=== PATIENT | female | born 1955 | race Caucasian/White ===

== ENCOUNTER → 2018-05-13 14:42 | Outpatient (CLI) | payer MEDICAID, SELFPAY ==
[2018-05-13 17:57] LABS: Absolute Lymphocyte Count 1.61 X10^3/ul (0.83-4.51); Absolute Neutrophil Count 2.7 X10^3/uL (2.0-7.7); Basophil# 0.02 X10^3/uL; Basophil% 0.4 % (0-1); Eosinophil# 0.02 X10^3/uL; Eosinophils% 0.4 % (0-5); Hematocrit 40.6 % (37-47); Hemoglobin 14.2 g/dl (12.0-15.0); Lymphocyte # 1.61 X10^3/ul (4.0); Lymphocyte % 33.7 % (19-41); Mean Corpuscular Hgb 31.8 pg (27.0-32.0); Mean Platelet Vol. 10.6 fl (6.2-12.0); Monocyte# 0.45 X10^3/uL; Monocyte% 9.4 % (0-10); Neutrophil # 2.67 X10^3/uL (2.7-7.7); Neutrophil % 55.9 % (47-70); Platelet Count 130 K/mm3 (150-450); RBC Distribution Width CV 12.8 % (11.6-14.6); RBC Distribution Width SD 41.8 fl (35.1-43.9); Red Blood Count 4.46 M/mm3 (4.2-5.4); White Blood Count 4.8 K/mm3 (4.4-11.0)
[2018-05-13 18:03] LABS: Vitamin D,25 Hydroxy 44.4 ng/mL (29.95-100.01)
[2018-05-13 18:06] LABS: ALB/GLOB Ratio 1.2 RATIO (0.9-2.4); AST(SGOT) 26 U/L (15-37); Alanine Aminotransfer ALT/SGPT 32 U/L (13-56); Albumin, Serum 4.2 g/dL (3.2-5.0); Alkaline Phosphatase 56 U/L (45-117); Anion Gap 10 (5-15); BUN 13 mg/dL (7-18); BUN/Creat Ratio 18.8 RATIO (10-20); Calcium,Total 9.1 mg/dL (8.5-10.1); Chloride 102 mmol/L (98-107); Cholesterol 205 mg/dL (200); Creatinine, Serum 0.69 mg/dL (0.55-1.02); EST Glomerular Filtration Rate 91 mL/min (>60); Est Glom Filt Rate - Afr Amer 110 mL/min (>60); Globulin 3.5 g/dL (2.2-4.2); Glucose 68 mg/dL (74-106); High Density Lipoprotein 61 mg/dL; Potassium 3.5 mmol/L (3.5-5.1); Protein, Total 7.7 g/dL (6.4-8.2); Sodium Level 138 mmol/L (136-145); Thyroid Stim Hormone (TSH) 1.13 uIU/mL (0.358-3.74); Triglycerides 63 mg/dL; Very Low Density Lipoprotein 13 mg/dL (5-40)
[2018-05-13 18:20] LABS: POSITIVE COUNT NO; POSITIVE DIFFERENTIAL NO; POSITIVE MORPHOLOGY NO
== END ==
PROVIDERS: Family Provider Family Medicine; PCP Family Medicine; Visit Provider Family Medicine
DX: Z00.01 Encounter for general adult medical examination with abnormal findings (principal); R53.83 Other fatigue
CPT/HCPCS: 36415; 80053; 80061; 82306; 84443; 85025

== ENCOUNTER → 2018-05-21 10:29 | Outpatient (CLI) | payer OTHER, SELFPAY ==
--- NOTE | 2018-05-21 10:38 | STE_ITS ---
Reason For Study: DYSPNEA Stress Results Protocol: Adrian Protocol Maximum Predicted HR: 157 bpm Target HR: 133 bpm% Max imum Predicted HR: 96 % DurationHeart Rate Stage (mm:ss) (bpm) BP BASELINE 76 142/78 STAGE 1 3:00 11 2 152/74 STAGE 2 3:00 13 1 180/80 STAGD 3 3:00 15 0 180/84 RECOVERY 95 140/82 Stress Duration: 9:00 mm:ss Maximum Stress HR: 150 bpmM ETS: 10 Baseline Echocardiogram Findings Stress Echo Wall motion Data Resting WMIntermediate WMStress WM Resting Wall Motion Wall Motion Stress All segments Normal. All segments Hyperkinetic. Ejection Fraction 60 %. Ejection Fraction 75 %. Stress Results Heart rate response: appropriate Blood pressure response: resting hypertension; appropriate response Arrhythmias: none Functional capacity: good Stopped secondary to: dyspnea. EKG Data Baseline ECG: NSR. Exercise ECG: no obvious ECG changes. Symptoms with Stress No c/o chest pain during exercise / recovery. Interpretation Summary Negative (adequate) Stress Echocardiogram Ordering Physician: Low Pabon Referring Physician: Low Pabon Performed By: Tiana Levi, JOSE LUIS, RVT
== END ==
PROVIDERS: Family Provider Family Medicine; PCP Family Medicine; Visit Provider Family Medicine
DX: R53.83 Other fatigue (principal); R06.00 Dyspnea, unspecified
CPT/HCPCS: 93017; 93350

== ENCOUNTER → 2018-05-29 14:39 | Outpatient (CLI) | payer OTHER, SELFPAY ==
--- NOTE | 2018-05-29 14:49 | BI_ITS ---
MAMMOGRAPHY - BILATERAL SCREENING 3-D FIDEL SYNTHESIS REASON FOR EXAM: Female, 63 years old. Bilateral Screening 3-D tomosynthesis PERTINENT HISTORY: Asymptomatic except lost weight since last exam. Right excisional biopsy 1999, negative. Family breast carcinoma, maternal great aunt age 70. TECHNIQUE: 2-D mammograms and 3-D Fidel synthesis of the breast (s) were performed. CAD was performed. COMPARISON: 10/03/2016, 09/22/2015. FINDINGS: The breast composition is heterogeneously dense that can obscure small breast masses. Scattered benign calcifications are seen. No new architectural distortion, asymmetric density, abnormal microcalcification cluster, dominant mass, adenopathy, skin thickening or nipple retraction identified. There has been no significant change since the prior study. BI/SCREENING MAMM (CAD), BILAT IMPRESSION: No mammographic signs of malignancy. Routine yearly mammograms recommended. ASSESSMENT CATEGORY: BIRADS Category 2: Benign. A letter regarding these results will be sent to the patient by the facility within 30 days. FOLLOW UP RECOMMENDATION: Yearly follow up mammogram recommended. (A) Negative results should not deter biopsy as a palpable lesion should be followed on clinical grounds and biopsy performed if clinically persistent for 3 months or increasing size. Approximately 10% of breast cancers are not detected by mammography. A normal mammogram should not delay biopsy of a clinically suspicious abnormality. Electronically Signed: Dwayne Padilla, at 13:39 EDT Tel , Service support ,
== END ==
PROVIDERS: Family Provider Family Medicine; PCP Family Medicine; Visit Provider Family Medicine
DX: Z12.31 Encounter for screening mammogram for malignant neoplasm of breast (principal)
CPT/HCPCS: 77063; 77067

== ENCOUNTER → 2019-06-20 13:52 | Outpatient (CLI) | payer OTHER, SELFPAY ==
[2019-06-20 16:14] LABS: Absolute Lymphocyte Count 1.44 X10^3/uL (0.83-4.51); Absolute Neutrophil Count 3.3 X10^3/uL (2.0-7.7); Basophil# 0.02 X10^3/uL; Basophil% 0.4 % (0-1); Eosinophil# 0.02 X10^3/uL; Eosinophils% 0.4 % (0-5); Hematocrit 40.4 % (37-47); Hemoglobin 13.6 g/dL (12.0-15.0); Lymphocyte # 1.44 X10^3/ul (4.0); Lymphocyte % 28.2 % (19-41); Mean Corp Hgb Conc 33.7 g/dL (32-36); Mean Corpuscular Hgb 31.8 pg (27.0-32.0); Mean Corpuscular Volume 94.4 fL (81-99); Mean Platelet Vol. 10.4 fl (6.2-12.0); Monocyte# 0.37 X10^3/uL; Monocyte% 7.2 % (0-10); NRBC Flagged by Analyzer 0 % (0-5); Neutrophil # 3.26 X10^3/uL (2.7-7.7); Neutrophil % 63.8 % (47-70); Platelet Count 132 K/mm3 (150-450); RBC Distribution Width CV 12.5 % (11.6-14.6); RBC Distribution Width SD 43.6 fl (35.1-43.9); Red Blood Count 4.28 M/mm3 (4.2-5.4); White Blood Count 5.1 K/mm3 (4.4-11.0)
[2019-06-20 16:35] LABS: Vitamin D,25 Hydroxy 32.5 ng/mL (29.95-100.01)
[2019-06-20 16:39] LABS: ALB/GLOB Ratio 1.2 RATIO (0.9-2.4); AST(SGOT) 16 U/L (15-37); Alanine Aminotransfer ALT/SGPT 27 U/L (13-56); Alkaline Phosphatase 71 U/L (45-117); Anion Gap 7 (5-15); BUN 23 mg/dL (7-18); BUN/Creat Ratio 30.8 RATIO (10-20); Calcium,Total 8.9 mg/dL (8.5-10.1); Chloride 106 mmol/L (98-107); Cholesterol 199 mg/dL (200); Creatinine, Serum 0.75 mg/dL (0.55-1.02); EST Glomerular Filtration Rate 83 mL/min (>60); Est Glom Filt Rate - Afr Amer 101 mL/min (>60); Ferritin 276 ng/mL (8-252); Globulin 3.2 g/dL (2.2-4.2); Glucose 80 mg/dL (74-106); High Density Lipoprotein 67 mg/dL; Iron 129 ug/dL (50-170); Potassium 3.9 mmol/L (3.5-5.1); Protein, Total 7.2 g/dL (6.4-8.2); Sodium Level 141 mmol/L (136-145); Thyroid Stim Hormone (TSH) 1.42 uIU/mL (0.358-3.74); Triglycerides 71 mg/dL; Very Low Density Lipoprotein 14 mg/dL (5-40)
== END ==
PROVIDERS: Family Provider Family Medicine; PCP Family Medicine; Visit Provider Family Medicine
DX: Z00.00 Encounter for general adult medical examination without abnormal findings (principal); D64.9 Anemia, unspecified; R11.0 Nausea; R53.83 Other fatigue
CPT/HCPCS: 36415; 80053; 80061; 82306; 82728; 83540; 84443; 85025

== ENCOUNTER 2019-10-15 00:24 | Emergency (ER) | payer OTHER, SELFPAY ==
[2019-10-15 00:26] VITALS: BP 156/97; PULSE 100; RESP 20; TEMP 37.2; O2SAT 97; BMI 24.0
--- NOTE | 2019-10-15 00:44 | RAD_ITS ---
STUDY: X-RAY CHEST REASON FOR EXAM: Female, 64 years old. at 1930 pt noticed her heart skipping beats and mild chest pressure TECHNIQUE: Single AP portable view of the chest. COMPARISON: None. FINDINGS: The lungs are clear and expanded. There is no demonstrated pleural abnormality. Normal size heart. Normal mediastinum and nadir. Normal visualized pulmonary arteries. There is atherosclerotic tortuosity of the aortic arch and descending thoracic aorta. There are diffuse degenerative changes of the visualized thoracic spine. There is degenerative osteoarthritis of the bilateral shoulders. There is no demonstrated abnormality of the visualized soft tissue structures of the upper abdomen. RAD/Chest 1 View (Portable) IMPRESSION: No acute cardiopulmonary disease. Electronically Signed: Estella Ventura MD at 1:01 EST , Service support ,
--- NOTE | 2019-10-15 00:44 | EKG12_ITS ---
Test Reason : PALPITATION Blood Pressure : / mmHG Vent. Rate : 080 BPM Atrial Rate : 080 BPM P-R Int : 178 ms QRS Dur : 086 ms QT Int : 380 ms P-R-T Axes : 044 040 047 degrees QTc Int : 438 ms Normal sinus rhythm Normal ECG Confirmed by MARISA TIMMONS, ERIC ([id number]), map editor CARLOS LEE ([id number]) on 10/17/2019 10:25:34 AM Referred By: DC Confirmed By:NATHAN CUNNINGHAM MD
[2019-10-15 00:47] VITALS: O2SAT 96
[2019-10-15 01:02] LABS: Absolute Lymphocyte Count 2.18 X10^3/uL (0.83-4.51); Absolute Neutrophil Count 3.3 X10^3/uL (2.0-7.7); Basophil# 0.02 X10^3/uL; Basophil% 0.3 % (0-1); Eosinophil# 0.03 X10^3/uL; Eosinophils% 0.5 % (0-5); Hematocrit 39.3 % (37-47); Hemoglobin 13.6 g/dL (12.0-15.0); Lymphocyte # 2.18 X10^3/ul (4.0); Lymphocyte % 35.2 % (19-41); Mean Corp Hgb Conc 34.6 g/dL (32-36); Mean Corpuscular Hgb 32.2 pg (27.0-32.0); Mean Corpuscular Volume 93.1 fL (81-99); Mean Platelet Vol. 9.7 fl (6.2-12.0); Monocyte# 0.62 X10^3/uL; NRBC Flagged by Analyzer 0 % (0-5); Neutrophil # 3.33 X10^3/uL (2.7-7.7); Neutrophil % 53.8 % (47-70); Platelet Count 140 K/mm3 (150-450); RBC Distribution Width SD 43.8 fl (35.1-43.9); Red Blood Count 4.22 M/mm3 (4.2-5.4); White Blood Count 6.2 K/mm3 (4.4-11.0)
[2019-10-15 01:24] LABS: Anion Gap 6 (5-15); BUN 23 mg/dL (7-18); BUN/Creat Ratio 33.2 RATIO (10-20); Calcium,Total 9.2 mg/dL (8.5-10.1); Chloride 108 mmol/L (98-107); Creatinine, Serum 0.69 mg/dL (0.55-1.02); EST Glomerular Filtration Rate 91 mL/min (>60); Est Glom Filt Rate - Afr Amer 110 mL/min (>60); Estimated Creatinine Clearance 59.16 ml/min; Glucose 107 mg/dL (74-106); Potassium 3.4 mmol/L (3.5-5.1); Sodium Level 142 mmol/L (136-145); Thyroid Stim Hormone (TSH) 2.71 uIU/mL (0.358-3.74)
--- NOTE | 2019-10-15 01:51 | ED.VISSUMM ---
- ER Visit Summary Date of Service: 10/15/19 Chief Complaint: Palpitations History of Present Illness: The patient is a 64 F who presents with palpitations and chest tightness. Symptoms have been going on throughout the evening. She had this in the past, and it was attributed to hypertension. Patient had a negative stress test about a year ago and denies any history of coronary disease. Denies any history of DVT or PE. Denies any recent surgery, hospitalization, or immobilization. Denies any history of aortic disease. Denies trauma. Denies fevers. Denies cough. Physical Examination: Hypertensive but otherwise vitals normal. No acute distress. Heart regular. Lungs clear. Abdomen soft. Skin normal. Calves soft and supple. Pulses strong and equal. Test Results: EKG showed sinus rhythm at a rate of 80. No sign of acute ischemia or infarction pattern. Chest x-ray normal. Platelets 140. Potassium 3.4, chloride 108, glucose 107, BUN 23, troponin normal. TSH normal. Emergency Department Course and Treatment: EKG as above. Patient was placed on the monitor. Her laboratory studies were all unremarkable. She had no dysrhythmia or abnormal findings on the monitor. No new or worsening symptoms. Patient has nothing to suggest ACS, PE, or dissection. I believe she is appropriate for outpatient follow-up. She has been dealing with a lot of stress and grief recently after the of her mother. This may be contributing. I am reassured by her work-up and her vitals here. Patient would also like to follow-up as an outpatient. Return for any new or worsening issues. Treatment Plan: As above Disposition: Discharge Impression: 1. Palpitations This note was generated with [employer] dictation software. It may contain incorrect words, spelling, and punctuation that were not noted in review of the chart prior to signing ED Disposition - Plan for ED Patient: Disposition: Home or Assisted Living Instructions: Palpitations Referrals: oLw Pabon DO [Primary Care Provider] -
--- NOTE | 2019-10-15 01:55 | ED.DEP ---
ED Disposition - Plan for ED Patient: Instructions: Palpitations Referrals: Low Pabon DO [Primary Care Provider] -
[2019-10-15 02:03] VITALS: BP 140/83; PULSE 87; RESP 19; O2SAT 94
== END 2019-10-15 02:04 | disposition home or self-care (01) ==
LOC: ED 00:55
PROVIDERS: Emergency Provider Emergency Medicine; Family Provider Family Medicine; PCP Family Medicine
DX: R00.2 Palpitations (principal); R07.89 Other chest pain; I10 Essential (primary) hypertension
CPT/HCPCS: 71045; 80048; 84443; 84484; 85025; 93005; 99284; A4216

== ENCOUNTER → 2019-10-17 14:28 | Outpatient (CLI) | payer OTHER, SELFPAY ==
[2019-10-15 00:26] VITALS: BMI 24.0
[2019-10-17 16:03] LABS: Erythrocyte Sedimentation Rate 6 mm/hr (0-30)
[2019-10-17 17:21] LABS: CRP < 2.90 mg/L (0.0-3.0); Rheumatoid Factor < 10.0 IU/mL (<15)
[2019-10-20 14:07] LABS: ANTINUCLEAR ANTIBODIES DIRECT Positive (Negative); Anti-Centromere B Ab <0.2 AI (0.0-0.9); Anti-Chromatin <0.2 AI (0.0-0.9); Anti-Jo <0.2 AI (0.0-0.9); Anti-Scleroderma-70 AB <0.2 AI (0.0-0.9); RNP Ab 0.5 AI (0.0-0.9); SJOGREN'S Anti-SS-A test < 0.2 AI (0.0-0.9); Smith Ab <0.2 AI (0.0-0.9)
[2019-10-20 15:41] LABS: Anti-dsDNA Ab 8 IU/mL (0-9)
[2019-10-24 20:07] LABS: Complement C3 132 mg/dL (82-167)
[2019-10-25 13:02] LABS: CCP IgG Antibodies 7 units (0-19)
== END ==
PROVIDERS: Family Provider Family Medicine; PCP Family Medicine; Visit Provider Family Medicine
DX: M32.9 Systemic lupus erythematosus, unspecified (principal); R53.83 Other fatigue; M25.50 Pain in unspecified joint
CPT/HCPCS: 36415; 85652; 86038; 86140; 86160; 86200; 86225; 86235; 86431

== ENCOUNTER 2021-01-11 10:03 | Observation (INO) | payer MEDICARE, SELFPAY ==
[2020-11-16 10:36] VITALS: BMI 26.4
[2021-01-10 11:24] LABS: Hematocrit 41.2 % (37-47); Hemoglobin 14.1 g/dL (12.0-15.0); Mean Corp Hgb Conc 34.2 g/dL (32-36); Mean Corpuscular Hgb 32.4 pg (27.0-32.0); Mean Corpuscular Volume 94.7 fL (81-99); Mean Platelet Vol. 10.4 fl (6.2-12.0); Platelet Count 148 K/mm3 (150-450); RBC Distribution Width CV 12.8 % (11.6-14.6); RBC Distribution Width SD 44.7 fl (35.1-43.9); Red Blood Count 4.35 M/mm3 (4.2-5.4); White Blood Count 4.9 K/mm3 (4.4-11.0)
[2021-01-10 11:59] LABS: ALB/GLOB Ratio 1.2 RATIO (0.9-2.4); AST(SGOT) 20 U/L (15-37); Alanine Aminotransfer ALT/SGPT 28 U/L (13-56); Albumin, Serum 4.1 g/dL (3.2-5.0); Alkaline Phosphatase 74 U/L (45-117); Anion Gap 5 (5-15); BUN 14 mg/dL (7-18); BUN/Creat Ratio 20.1 RATIO (10-20); Calcium,Total 9.2 mg/dL (8.5-10.1); Chloride 102 mmol/L (98-107); EST Glomerular Filtration Rate 90 mL/min (>60); Est Glom Filt Rate - Afr Amer 109 mL/min (>60); Globulin 3.4 g/dL (2.2-4.2); Glucose 95 mg/dL (74-106); Potassium 3.7 mmol/L (3.5-5.1); Protein, Total 7.5 g/dL (6.4-8.2); Sodium Level 140 mmol/L (136-145)
[2021-01-11] VITALS (12 sets, daily range): BP systolic 122–153; BP diastolic 71–90; PULSE 57–88; RESP 14–18; TEMP 36.3–37.3; O2SAT 95–100; BMI 27.3
[2021-01-11] MEDS: Lactated Ringers 1,000 ML 100 ML IV ×2 (06:50→10:00)
[2021-01-11] MEDS: Cefazolin 2 GM in 0.9% Normal Saline 100 ML IV (07:23)
[2021-01-11] MEDS: Lubricating Jelly 60 GM Tube 30 GM TOPICAL (07:50)
[2021-01-11] MEDS: Lidocaine 1% /Epi 1:100 (20ml) 20 ML Vial (07:50)
[2021-01-11] MEDS: Estrogens,Conj. 1 Tube 1 DOSE (09:40)
--- NOTE | 2021-01-11 10:54 | PCM.OPRPT ---
Problem List (1) Cystocele Status: Acute (2) Rectocele, female Status: Acute (3) Stress incontinence Status: Acute (4) Vaginal prolapse Status: Chronic Comment: grade III and post hyst. recommend urogyn consult for surgical management, considering but will likely decline pessary. Report of Operation Date of Procedure: 01/11/21 Pre-Operative Diagnosis: Vaginal vault prolapse, cystocele, rectocele, stress urinary incontinence Post-Operative Diagnosis: Same Surgery/Procedure Performed:: Anterior repair, posterior repair with dermis, bilateral sacrospinous ligament fixation, mid urethral sling insertion, urethral dilation, cystoscopy with bilateral ureteral catheterization Type of Anesthesia:: General Estimated Blood Loss (mL): 25cc Description of Procedure: The patient is a 65-year-old female with pelvic organ prolapse status post hysterectomy. She has undergone evaluation in the office with attempted cystoscopy and urodynamics. Informed consent was obtained and she was prepared for surgical intervention. Patient was taken to the operating room and placed on the operating room table. Anesthesia monitored the head, neck, airway, IV access and vital signs throughout the case. Once anesthesia was appropriate ministered the patient was placed into dorsal lithotomy in Trendelenburg position. She was prepped and draped in usual sterile fashion. A 16 Tuvaluan Newman catheter was attempted to be inserted in the urethral meatus was too small. Dilation was performed starting with 16 Tuvaluan to 26 Tuvaluan using sounds. At this time the Newman catheter was easily inserted into the bladder which was drained. The enterocele and rectocele were determined to be more problematic than the cystocele and the dissection and repair started posteriorly. The posterior submucosa was injected with 1% lidocaine with epinephrine for hydrostatic dissection and hemostatic control. A midline incision was made full-thickness through the vaginal mucosa. Sharp and blunt dissection was performed on either side until the rectovaginal fascia was identified. Dissection then continued in a cephalad fashion towards the ischial spine. Bilaterally the sacrospinous ligaments were identified and cleaned from surrounding tissues. Using the Capio device, a Monodek suture was passed through each sacrospinous ligament. The suture was then brought through the corner of a piece of dermis appropriately trimmed to size. The suture was then brought through the vaginal mucosa at the apex in full-thickness fashion. The dermis was then sutured into position using 2-0 Vicryl in the midline at the apex, and bilaterally at the white line through the rectovaginal fascia. Once the dermis was in appropriate position the vaginal mucosa was closed over it using running interlocking 2-0 Vicryl. Attention was then turned towards the anterior defect which was minimal. The submucosa was injected with 1% lidocaine with epinephrine and a midline incision was made. Sharp and blunt dissection was performed until the pubocervical fascia was identified bilaterally. This was brought together in a 2 layer closure with interrupted 2-0 Vicryl. The vaginal mucosa was closed over the repair using running interlocking closure. The mid urethra was then injected with lidocaine in the submucosal plane. A midline incision was made and sharp and blunt dissection was performed on either side of the urethra to avoid entrance into the urethra or the vaginal mucosa. The trochars were used to place the Altis mid urethral sling into the appropriate position. It was positioned flat against the urethra without tension. The tensioning suture was cut and the midline incision was closed using running interlocking 2-0 Vicryl. At this time the Newman catheter was removed and the cystoscope was inserted through the urethra under direct visualization into the urinary bladder. There were no injuries identified to the bladder or urethral mucosa. The ureteral orifices were very small in size, and a Glidewire and Pollack catheter were used for intubation. There is no evidence of injury to either ureteral orifice. At this time the cystoscope was removed and the Newman catheter was replaced. The vagina was packed with Premarin cream and vaginal packing. The patient was awakened and taken to the recovery room in good condition. There were no complications during this procedure. Grafts/Implants Used: Dermis, Altis - Complications None - Admit VTE Documentation VTE Present on Admission: Yes VTE Mechan Device Prophylaxis: SCD's VTE Pharm Prophylaxis ordered?: Yes
--- NOTE | 2021-01-11 11:03 | DCINST_ITS ---
Discharge Diet: No Restrictions Discharge Activity: May not drive while taking narcotic pain medications., May Shower May resume sexual activity in: 8 weeks Additional Activity Instructions:: No lifting over 5 pounds, no strenuous activity, no exercise, no swimming, tub bathing or hot tubs, no sexual activity for [address] in 2 weeks when off narcotics Call your doctor if your incision/area has: Continuous Slow Oozing, Sudden Increased Bleeding, Increased Pain/ Swelling, Increased Redness, Foul Smelling Discharge, Swelling at the incision site Call your doctor if you observe: Fever of 101 or Higher, Inability to urinate, Inability to have a bowel movement, Calf discomfort, Uncontrolled pain Allergies/Adverse Reactions: Allergies Sulfa (Sulfonamide Antibiotics) Allergy (Verified 01/11/21 06:31) PT UNSURE OF REACTION Tetracyclines Allergy (Verified 01/11/21 06:31) heart palpitations Medications to take at Discharge Hydrochlorothiazide [Hctz] 25 mg PO DAILY 10/15/19 Atenolol [Tenormin (beta harley)] 25 mg PO DAILY 12/28/20 C-Estrodial 1 applicatio VAGINAL MOTH 12/28/20 Cephalexin [Keflex] 500 mg PO Q12 3 Days #6 capsule 01/11/21 Docusate Sodium [Colace] 100 mg PO BID capsule 01/11/21 Oxycodone HCl/Acetaminophen [Percocet 5/325] 2 tablet PO Q8H PRN PRN 7 Days #20 tablet 01/11/21 The following prescriptions were given: Cephalexin [Keflex] 500 mg PO Q12 3 Days #6 capsule Transmission Status: Pending to [id number] Oxycodone HCl/Acetaminophen [Percocet 5/325] 2 tablet PO Q8H PRN PRN 7 Days #20 tablet PRN Reason: Pain Transmission Status: Sent to [id number] Primary Care Physician: Low Pabon DO [Primary Care Provider] - Test Results: Test results from this visit will be discussed in further detail at your follow- up appointment, if applicable. Please Follow Up With: Sandra Santa MD When: call office for appt Proposed Discharge Date: 01/12/21
[2021-01-11] MEDS: Morphine 2 MG/ML Syringe IV ×3 (12:14→23:15)
[2021-01-11] MEDS: Dextrose 5%-Lactated Ringers 1,000 ML 100 ML IV (14:27)
[2021-01-11] MEDS: Cefazolin 1 GM/50 ML BAG IV ×2 (15:33→23:40)
[2021-01-11] MEDS: 0.9% Saline Lock 10 ML Syringe IV (23:14)
[2021-01-11] MEDS: Docusate Sodium 100 MG Capsule PO (23:18)
[2021-01-12] MEDS: Dextrose 5%-Lactated Ringers 1,000 ML 100 ML IV ×2 (00:09→09:56)
[2021-01-12 01:30] VITALS: BP 127/74; PULSE 72; RESP 16; TEMP 37.2; O2SAT 94
[2021-01-12 03:37] VITALS: BMI 27.3
[2021-01-12] MEDS: 0.9% Saline Lock 10 ML Syringe IV (06:29)
[2021-01-12] MEDS: Morphine 2 MG/ML Syringe IV (06:29)
[2021-01-12] MEDS: Cefazolin 1 GM/50 ML BAG IV ×2 (06:31→15:18)
[2021-01-12 06:38] VITALS: BP 124/61; PULSE 73; RESP 16; TEMP 36.9; O2SAT 96
[2021-01-12 06:39] VITALS: BMI 27.3
--- NOTE | 2021-01-12 08:14 | PCM.PN.BLA ---
Progress Note Resting in bed. Sore in rectal area and hips. Vitals are good. No fever. Abdomen soft. SCD's in place. Newman and packing removed. A/P POD#1 pelvic reconstruction ambulate trial of void home later today STROKE Vital Signs/Narrative: Vital Signs Temp Pulse Resp BP Pulse Ox 01/12/21 06:38 98.5 F 73 16 124/61 H 96
[2021-01-12] MEDS: Atenolol 50 MG Tablet 25 MG PO (09:15)
[2021-01-12] MEDS: Enoxaparin 40 MG/0.4 ML Syringe SC (09:15)
[2021-01-12] MEDS: hydroCHLOROthiazide 25 MG Tablet PO (09:16)
[2021-01-12] MEDS: Docusate Sodium 100 MG Capsule PO (09:16)
[2021-01-12 09:54] VITALS: BP 143/73; PULSE 73; RESP 18; TEMP 37.3; O2SAT 98
[2021-01-12] MEDS: oxyCODONE 5 MG Tablet PO ×2 (10:37→15:25)
--- NOTE | 2021-01-12 11:04 | CASEMGMT ---
MADISON Enciso in to discuss RUSSO form with pt. at bedside. RN ANA explained RUSSO form, pt voiced understanding. Pt signed form and filed in chart. Pt provided with a copy of signed RUSSO form. Pt had no further questions or concerns at this time.
[2021-01-12 12:30] VITALS: BP 123/59; PULSE 71; RESP 18; TEMP 37; O2SAT 98
[2021-01-12 12:50] VITALS: BMI 27.3
[2021-01-12 17:04] VITALS: BMI 27.3
[2021-01-12 17:25] VITALS: BP 136/78; PULSE 68; RESP 18; TEMP 37; O2SAT 94
== END 2021-01-12 18:05 | disposition home or self-care (01) ==
LOC: SDC 10:30 → AC 10:31 → SDC 10:31 → MS3 10:31
PROVIDERS: Admitting Provider Urology; PCP Family Medicine; Referring Provider Urology; Visit Provider Urology
PROC: (CPT 57260; principal; 2021-01-11 07:15)
DX: N99.3 Prolapse of vaginal vault after hysterectomy (principal); Z20.828 Contact with and (suspected) exposure to other viral communicable diseases; I10 Essential (primary) hypertension; G25.81 Restless legs syndrome; Z79.899 Other long term (current) drug therapy; K59.00 Constipation, unspecified; N94.10 Unspecified dyspareunia; N39.46 Mixed incontinence; N95.2 Postmenopausal atrophic vaginitis; N35.92 Unspecified urethral stricture, female; R35.0 Frequency of micturition
CPT/HCPCS: 00860; 52281; 57260; 57282; 57288; 36415; 80053; 85027; 87426; 96361; 96365; 96366; 96372; 96375; 96376; 99218; 99251; C9803; J7120; A4216; C1758; G0378; G0379; G0463; J2405

== ENCOUNTER 2021-12-22 17:37 | Outpatient (CLI) | payer MEDICARE, SELFPAY ==
--- NOTE | 2021-12-22 17:41 | CT_ITS ---
EXAM: CT ABDOMEN AND PELVIS WITH INTRAVENOUS CONTRAST : 1955 CLINICAL INDICATION: DIVERTICULITIS TECHNIQUE: Helically acquired images were obtained of the abdomen and pelvis with intravenous contrast. This CT exam was performed using one or more of the following dose reduction techniques: automated exposure control, adjustment of the mA and/or kV according to patient size, and/or use of iterative reconstruction technique. This report was created using [employer] report generation technology. CONTRAST: IV 100mL Isovue-300 COMPARISON: None. FINDINGS: LOWER THORAX: Unremarkable. Lung bases are clear. No cardiomegaly. No significant pericardial effusion. ABDOMEN: LIVER: Unremarkable. Homogeneous. No focal mass. GALLBLADDER AND BILE DUCTS: Unremarkable. No calcified gallstones. No gallbladder distention or wall edema. No intra- or extrahepatic biliary ductal dilation. PANCREAS: Unremarkable. No focal cystic or solid mass. SPLEEN: Unremarkable. Normal size without focal cystic or solid mass. ADRENALS: Unremarkable. No nodules. KIDNEYS AND URETERS: 3 mm nonobstructive right renal stone. Normal renal size and position. STOMACH AND BOWEL: Colon diverticulosis noted without evidence of acute diverticulitis. No stomach or bowel distention. PELVIS: APPENDIX: Appendix is visualised and normal in appearance. BLADDER: Unremarkable. REPRODUCTIVE: Uterus is absent. ABDOMEN and PELVIS: INTRAPERITONEAL SPACE: Unremarkable. No ascites or other fluid collection. No free air. BONES/JOINTS: Unremarkable. No suspicious lytic or blastic abnormality. SOFT TISSUES: Unremarkable. No discrete abdominal or pelvic wall hernia. VASCULATURE: Unremarkable. Abdominal aorta is non-dilated. LYMPH NODES: Unremarkable. No enlarged lymph nodes. CT/Abdomen/Pelvis WITH Contrast IMPRESSION: 1. No acute abdominal or pelvic abnormality. 2. Diverticulosis coli. 3. 3 mm right renal stone. Individualized dose optimization techniques were used for this CT. at 0910 Reported and signed by: Axel Pacheco MD Electronically Signed: Axel Pacheco MD at 9:08 EST ,
[2021-12-22 17:51] LABS: CREATININE FINGERSTICK 0.8 mg/dL (0.55-1.02); EGFR FINGERSTICK > 60.0000 mL/min (>60)
== END 2021-12-22 23:59 | disposition home or self-care (01) ==
LOC: CT 17:38
PROVIDERS: PCP Student in an Organized Health Care Education/Training Program; Visit Provider Internal Medicine Gastroenterology
DX: R10.32 Left lower quadrant pain (principal); K57.92 Diverticulitis of intestine, part unspecified, without perforation or abscess without bleeding
CPT/HCPCS: 74177; Q9967

== ENCOUNTER 2022-08-05 12:18 | Emergency (ER) | payer MEDICARE, SELFPAY ==
[2022-08-05 12:25] VITALS: BP 161/91; PULSE 74; RESP 17; TEMP 36.9; O2SAT 96; BMI 27.7
--- NOTE | 2022-08-05 12:39 | EKG12_ITS ---
Test Reason : HTN Blood Pressure : / mmHG Vent. Rate : 062 BPM Atrial Rate : 062 BPM P-R Int : 184 ms QRS Dur : 080 ms QT Int : 418 ms P-R-T Axes : 042 019 033 degrees QTc Int : 424 ms Normal sinus rhythm Normal ECG Confirmed by MARISA TIMMONS, ERIC ([id number]), make up editor SOLE SALGADO ([id number]) on 08/07/2022 10:04:23 AM Referred By: Confirmed By:NATHAN CUNNINGHAM MD
--- NOTE | 2022-08-05 12:39 | EX.ED.DYSGE1 ---
HPI History of Present Illness Chief Complaint: Hypertension Detail of Chief Complaint: High blood pressure Informant: patient and spouse/S.O. Narrative Narrative: Patient presents to the emergency department complaint of high blood pressure today. Patient states that she has a history of hypertension and does take blood pressure medicine with which she has been compliant. Last night she did not sleep well but she when she woke up it 6:45 AM she took her blood pressure and it was 154/85. Patient has hydralazine that she takes if her systolic is over 140 so she took half a tablet of hydralazine and went back to bed. Patient then subsequently woke up and checked her blood pressure again and it was higher at 183/99 and she became concerned we will take it again. Patient felt like she was getting nervous then and started having some chest discomfort and feeling lightheaded and woozy. She called her PCP office and the nurse there told her to come into the ED and get evaluated. Patient has no heart history. She does relate some history of increased exertional dyspnea over the last several months where she cannot walk on a treadmill like she used to. She denies chest pain but has had some tightness in her chest and gets more winded than usual. Patient denies recent travel or surgery. No significant family history of heart disease. She herself has not had any heart disease history. Patient has history of hypertension and states that she had borderline cholesterol for which she has no medications currently. She tells me that they are working to go see her 's sister who is in the ICU in [place] today and may not survive her illness. [facility] Medical History (Updated 08/05/22 @ 13:[address] Dank Scales, ) Hypertension Home Medications hydrochlorothiazide 25 mg tablet 12.5 mg PO DAILY bp med 10/15/19 [History Last Taken Unknown] amlodipine 10 mg tablet 5 mg PO DAILY 08/05/22 [History Last Taken Unknown] estriol (bulk) 100 % powder 1 ea miscellaneous MOTH 08/05/22 [History Last Taken Unknown] hydralazine 25 mg tablet 12.5 mg PO PRN PRN SUSTAINED BP >140/90 08/05/22 [History Last Taken Unknown] metoprolol succinate 50 mg tablet,extended release 24 hr 50 mg PO QHS 08/05/22 [History Last Taken Unknown] pantoprazole 40 mg tablet,delayed release 40 mg PO DAILY 08/05/22 [History Last Taken Unknown] Allergy/AdvReac Type Severity Reaction Status Date / Time Sulfa (Sulfonamide Allergy PT UNSURE Verified 08/05/22 12:20 Antibiotics) OF REACTION Tetracyclines Allergy heart Verified 08/05/22 12:20 palpitations Family History (Updated 11/16/20 @ 10:40 by Day Dumont) Father Heart disease Bladder cancer Mother Rheumatic arteritis Daughter Lupus Surgical History H/O lumpectomy History of breast biopsy History of tonsillectomy S/P AI (total abdominal hysterectomy) Social History (Updated 11/17/20 @ 07:[address] Tracy Kline MD) Smoking Status: Never smoker alcohol intake: never substance use type: does not use caffeine: Yes what type of physical activity do you participate in: none seatbelt use: always do you feel safe at home: Yes additional social history: Kory ZENDEJAS ROS ED ROS Narrative Lightheadedness Review of Systems ROS Unobtainable: other Constitutional Constitutional ED: Reports lethargy; Denies chills, fever(s), sweats or weight loss Eyes Eyes: Denies blurry vision, change in vision or diplopia ENT ENT ED: Denies rhinorrhea or sore throat Cardiovascular Cardiovascular: Reports chest pain; Denies orthopnea or racing heartbeat Respiratory/Chest Respiratory/Chest: Reports dyspnea on exertion; Denies cough, dyspnea, orthopnea or sputum Gastrointestinal Gastrointestinal: Denies abdominal pain, diarrhea, nausea or vomiting Genitourinary Genitourinary ED: Denies dysuria, hematuria or urinary frequency Musculoskeletal Musculoskeletal: Denies arthralgias, back pain, myalgias or neck pain Integumentary Denies abscess, Abrasions or rash Neurologic Neurologic: Denies headache(s) or weakness Psychiatric Psychiatric: Denies anxiety, depression or suicidal thoughts Endocrine Endocrinology: Denies polydipsia, polyphagia or polyuria Hematologic/Lymphatic Hematologic/Lymphatic: Denies easy bleeding, easy bruising or lymphadenopathy Allergic/Immunologic Allergic/Immunologic ED: Denies mouth swelling, tongue swelling or urticaria EXAM Physical Exam Const Vital Signs: 08/05/22 12:25 08/05/22 12:56 10/15/22 13:33 Temperature 98.4 F Temperature Source Temporal Pulse Rate 74 58 L Respiratory Rate 17 16 Respiratory Effort Normal Non-Labored Respiratory Pattern Normal Blood Pressure 161/91 H 141/74 H Blood Pressure Mean 114 96 Pulse Ox 96 97 Oxygen Delivery Method Room Air Room Air Positive well nourished and well developed General Appearance ED: well developed and NAD HEENT Reports TM's clear and moist mucous membranes normocephalic and atraumatic; Negative for trauma or tenderness Tympanic Membrane ED: Yes TM's clear Eyes PERRL and EOMs intact bilaterally General Eye ED: Negative for pale conjunctiva or scleral icterus Neck no lymphadenopathy, supple and no JVD General: Negative for tenderness Chest Wall inspection of chest normal and palpation of chest normal Chest: Negative for tenderness Resp normal respiratory effort and clear to auscultation bilaterally Effort and Inspection: Negative for respiratory distress or pain with movement Auscultation: Negative for rhonchi, wheezes or diminished lung sounds Cardio regular rate, regular rhythm, S1 normal heart sound, S2 normal heart sound and no murmurs Peripheral Pulses: pulses 2+ throughout GI normal to inspection, nondistended, normoactive bowel sounds, soft to palpation, non-tender, non-distended and no masses Back/Spine no CVA tenderness and no thoracic nor lumbar tenderness Extremity normal to inspection General Extremety ED: Negative for edema General Extremity: Negative for edema Neuro oriented x3, CN's II-XII intact bilaterally, no sensory deficits noted and gait normal Sensorium / Orientation: awake, alert, oriented to person, oriented to place and oriented to time Motor Exam: strength 5/5 throughout and strength abnormal Psych mental status grossly normal Skin no rashes or lesions noted and no wounds MDM MDM MDM Narrative Medical decision making narrative: IV established on arrival. Patient placed on a clinical research monitor. At rest without any treatment her blood pressure now 140s over 70s. EKG and lab work-up was normal. Troponin was normal. At this point I do not feel any further treatments indicated. Patient to keep journal of her blood pressures and follow-up with her primary care physician within next 3 to 5 days. Given that she is noted some exertional dyspnea at times she is advised to follow-up with her primary care physician regarding this for possible outpatient stress testing. I feel she is low risk for acute coronary syndrome. Lab Data Attestation: I reviewed the patient's lab results. Labs: Laboratory Results - last 24 hr 08/05/22 08/05/22 12:50 12:50 WBC 4.6 RBC 4.57 Hgb 14.2 Hct 42.1 MCV 92.1 MCH 31.1 MCHC 33.7 RDW Std Deviation 44.9 H RDW Coeff of Andressa 13.2 Plt Count 154 MPV 9.9 Immature Gran % (Auto) 0.400 Neut % (Auto) 67.8 Lymph % (Auto) 24.2 [place] % (Auto) 7.0 Eos % (Auto) 0.2 Baso % (Auto) 0.4 Absolute Neuts (auto) 3.1 Absolute Lymphs (auto) 1.11 Nucleated RBC % 0 Sodium 140 Potassium 3.8 Chloride 108 H Carbon Dioxide 27.0 Anion Gap 5 BUN 12 Creatinine 0.70 Estim Creat Clear Calc 43.18 Est GFR (MDRD) Af Amer 107 Est GFR (MDRD) Non-Af 88 BUN/Creatinine Ratio 17.1 Glucose 108 H Calcium 9.3 Troponin I High Sens 6 EKG Initial EKG: Attestation: I personally reviewed and interpreted this EKG as follows: Comments: Sinus rhythm with a rate of 62 bpm with no acute ST segment changes Discharge Plan Triage Chief Complaint: Hypertension ED Provider: Dank Scales Dx/Rx/DC Orders Clinical Impression: Hypertension Instructions: ED Hypertension, Established Prescriptions: No Action hydrochlorothiazide 25 MG tablet 12.5 mg PO DAILY estriol (bulk) 100 % powder 1 ea MISCELLANEOUS MOTH Label Comments: APPLY 1 GRAM (4 CLICKS)rINTRAVAGINALLY TWICE PERsWEEK metoprolol succinate 50 mg tablet extended release 24 hr 50 mg PO QHS Label Comments: take 1 tablet by mouth every evening hydralazine 25 mg tablet 12.5 mg PO PRN PRN (Reason: SUSTAINED BP >140/90) Label Comments: take 1/2 tablet by mouth if needed for SUSTAINED BLOOD PRESSURE GREATER THAN 140/90 amlodipine 10 mg tablet 5 mg PO DAILY Label Comments: take 1/2 tablet by mouth once daily pantoprazole 40 mg tablet,delayed release (DR/EC) 40 mg PO DAILY Label Comments: take 1 tablet by mouth once daily Primary Care Provider: Meng Haas Referrals: Meng Haas DO [Primary Care Provider] - 3-5 Days Disposition Disposition: Home, Self Care
[2022-08-05 13:12] LABS: Absolute Lymphocyte Count 1.11 X10^3/uL (0.83-4.51); Absolute Neutrophil Count 3.1 X10^3/uL (2.0-7.7); Basophil# 0.02 X10^3/uL; Basophil% 0.4 % (0-1); Eosinophil# 0.01 X10^3/uL; Eosinophils% 0.2 % (0-5); Hematocrit 42.1 % (37-47); Hemoglobin 14.2 g/dL (12.0-15.0); Lymphocyte # 1.11 X10^3/ul (0.83-4.51); Lymphocyte % 24.2 % (19-41); Mean Corp Hgb Conc 33.7 g/dL (32-36); Mean Corpuscular Hgb 31.1 pg (27.0-32.0); Mean Corpuscular Volume 92.1 fL (81-99); Mean Platelet Vol. 9.9 fl (6.2-12.0); Monocyte# 0.32 X10^3/uL; NRBC Flagged by Analyzer 0 % (0-5); Neutrophil % 67.8 % (47-70); Platelet Count 154 K/mm3 (150-450); RBC Distribution Width CV 13.2 % (11.6-14.6); RBC Distribution Width SD 44.9 fl (35.1-43.9); Red Blood Count 4.57 M/mm3 (4.2-5.4); White Blood Count 4.6 K/mm3 (4.4-11.0)
[2022-08-05 13:25] LABS: Anion Gap 5 (5-15); BUN 12 mg/dL (7-18); BUN/Creat Ratio 17.1 RATIO (10-20); Calcium,Total 9.3 mg/dL (8.5-10.1); Chloride 108 mmol/L (98-107); EST Glomerular Filtration Rate 88 mL/min (>60); Est Glom Filt Rate - Afr Amer 107 mL/min (>60); Estimated Creatinine Clearance 43.18 ml/min; Glucose 108 mg/dL (74-106); Potassium 3.8 mmol/L (3.5-5.1); Sodium Level 140 mmol/L (136-145); Troponin-I HS 6 pg/mL (3.0-54.0)
[2022-08-05 13:33] VITALS: BP 141/74; PULSE 58; RESP 16; O2SAT 97
== END 2022-08-05 13:49 | disposition home or self-care (01) ==
PROVIDERS: Emergency Provider Emergency Medicine; PCP Student in an Organized Health Care Education/Training Program; Visit Provider Emergency Medicine
DX: I10 Essential (primary) hypertension (principal); Z79.899 Other long term (current) drug therapy
CPT/HCPCS: 80048; 84484; 85025; 93005; 99284; A4216

== ENCOUNTER 2022-09-23 11:13 | Emergency (ER) | payer MEDICARE, SELFPAY ==
[2022-09-23 11:15] VITALS: BP 179/101; PULSE 92; RESP 18; TEMP 37.2; O2SAT 95; BMI 29.2
--- NOTE | 2022-09-23 11:25 | CT_ITS ---
STUDY: CT ABDOMEN AND PELVIS WITHOUT CONTRAST REASON FOR EXAM: Female, 67 years old. Pain RADIATION DOSAGE (If Supplied By Facility): CTDIvol = ( 8 ) mGy, DLP = ( 361.68 ) mGycm TECHNIQUE: Transaxial images were obtained from the dome of the diaphragm to the symphysis pubis without oral contrast, and without intravenous contrast. Sagittal and coronal images were reconstructed. Individualized dose optimization techniques were used for this CT. COMPARISON: 12/22/2021 FINDINGS: The visualized lung bases are unremarkable. The visualized portions of the heart are within normal limits. Normal liver. Normal gallbladder and extrahepatic biliary system. Normal spleen. Normal pancreas. Normal bilateral adrenal glands. 3 mm obstructing stone at the right ureterovesical junction with mild ureteral dilatation and hydronephrosis. Normal left kidney. Moderate sized hiatal hernia. Normal small intestine. There are multiple colonic diverticula consistent with diverticulosis. The appendix is visualized and appears normal. Normal abdominal aorta. Normal inferior vena cava. Normal retroperitoneum. Normal urinary bladder. Normal abdominal wall. Normal osseous structures. CT/Abdomen/Pelvis without Cont IMPRESSION: 3 mm obstructing stone at the right ureterovesical junction with mild ureteral dilatation and hydronephrosis. Electronically Signed: Donell De Guzman MD at 12:34 EST ,
--- NOTE | 2022-09-23 11:26 | EDS_ITS ---
HPI History of Present Illness Chief Complaint: Abd Pain Informant: patient and spouse/S.O. Narrative Narrative: 67-year-old female presenting to the emergency department with abdominal pain and vomiting. She tells me this morning she kept feeling that she needed to have a bowel movement did but did not ever feel like she had finished. She noted sensation that she needs to urinate frequently but cannot. She notes the pain that intensifies at times along her waist that goes towards the right flank. She notes that she started dry heaving on the way to the emergency department. She also notes chills but did not have a fever at home. [facility] Medical History MORA (dyspnea on exertion) Essential (primary) hypertension Hypertension Mitral valve disorder Rosacea Situational anxiety Snoring Home Medications amlodipine 10 mg tablet 5 mg PO DAILY 08/05/22 [History Last Taken Unknown] metoprolol succinate 50 mg tablet,extended release 24 hr 50 mg PO QHS 08/05/22 [History Last Taken Unknown] acetaminophen 650 mg tablet,extended release (Arthritis Pain Relief (acetaminoph en) ER) 650 mg PO Q12H 09/04/22 [History Last Taken Unknown] ascorbic acid (vitamin C) 1,000 mg capsule 1 g PO DAILY 09/04/22 [History Last Taken Unknown] cholecalciferol (vitamin D3) 125 mcg (5,000 unit) capsule 125 mcg PO DAILY 09/04/22 [History Last Taken Unknown] cream base no.175 (bulk) (Versatile Rich topical cream) 1 applic topical 2XW 09/04/22 [History Last Taken Unknown] glycerin (bulk) 100 % liquid See Rx Instructions miscellaneous 2XW 09/04/22 [History Last Taken Unknown] zinc gluconate 50 mg tablet 50 mg PO DAILY 09/04/22 [History Last Taken Unknown] elderberry fruit 350 mg capsule mg PO 09/20/22 [History Last Taken Unknown] hydrochlorothiazide 25 mg tablet 25 mg PO DAILY #90 tabs 09/20/22 [Rx Last Taken Unknown] losartan 100 mg tablet 100 mg PO DAILY #90 tabs 09/20/22 [Rx Last Taken Unknown] tagscmez-zxh-agpar 120 mcg-lutein 150 mcg-herb 37.5 mg chewable tablet (Alive Women's 50 Plus Gummy) tab PO 09/20/22 [History Last Taken Unknown] pantoprazole 40 mg tablet,delayed release 40 mg PO DAILY 09/20/22 [History Last Taken Unknown] Allergy/AdvReac Type Severity Reaction Status Date / Time ciprofloxacin Allergy Intermediate Hives Verified 09/23/22 11:15 Sulfa (Sulfonamide Allergy PT UNSURE Verified 09/23/22 11:15 Antibiotics) OF REACTION Tetracyclines Allergy heart Verified 09/23/22 11:15 palpitations minocycline AdvReac Mild Chest Verified 09/23/22 11:15 tightness Family History Father Heart disease Bladder cancer Hypertension Diabetes Hyperlipidemia Mother Hypertension Colon polyps COPD (chronic obstructive pulmonary disease) Rheumatic arteritis Osteoporosis Dementia Diverticulitis History of bowel resection Daughter Lupus Sister Hypertension Grandfather Cancer prostate Surgical History H/O lumpectomy History of bladder repair surgery History of breast biopsy History of colonoscopy History of tonsillectomy S/P AI (total abdominal hysterectomy) Social History Smoking Status: Never smoker alcohol intake: never substance use type: does not use caffeine: No what type of physical activity do you participate in: none seatbelt use: always do you feel safe at home: Yes additional social history: Kory ZENDEJAS ED Constitutional Constitutional ED: Reports chills; Denies fever(s) or weight loss Eyes Eyes: Denies change in vision or diplopia ENT ENT ED: Denies ear pain, rhinorrhea or sore throat Cardiovascular Cardiovascular: Denies chest pain, orthopnea, palpitations or racing heartbeat Respiratory/Chest Respiratory/Chest: Denies cough, dyspnea or orthopnea Gastrointestinal Gastrointestinal: Reports abdominal pain, nausea and vomiting; Denies diarrhea Genitourinary Genitourinary ED: Denies dysuria, hematuria or urinary frequency Musculoskeletal Musculoskeletal: Denies arthralgias or myalgias Integumentary Denies abscess or rash Neurologic Neurologic: Denies headache(s) or weakness Psychiatric Psychiatric: Denies anxiety, depression, suicidal ideation or suicidal thoughts Endocrine Endocrinology: Denies polydipsia, polyphagia or polyuria Allergic/Immunologic Allergic/Immunologic ED: Denies mouth swelling, tongue swelling or urticaria EXAM Physical Exam Narrative Exam Narrative: Patient appears nauseous holding an emesis bag and appears uncomfortable. Const Vital Signs: 09/23/22 11:15 Temperature 99.0 F Temperature Source Temporal Pulse Rate 92 Respiratory Rate 18 Blood Pressure 179/101 H Blood Pressure Mean 127 Pulse Ox 95 Oxygen Delivery Method Room Air Positive well nourished and well developed General Appearance ED: well developed HEENT Reports normocephalic, head/scalp atraumatic and moist mucous membranes Eyes PERRL and EOMs intact bilaterally Neck no lymphadenopathy, supple and no JVD Resp normal respiratory effort and clear to auscultation bilaterally Cardio regular rate, regular rhythm and no murmurs GI GI Narrative: There is diffuse tenderness to palpation but more pronounced in the right lower quadrant Inspection: Negative for abdominal distention Auscultation: normoactive bowel sounds Palpation: soft and tender; Negative for guarding or rebound tenderness present Back/Spine no CVA tenderness and normal ROM Extremity normal to inspection General Extremety ED: Negative for edema General Extremity: Negative for edema Neuro oriented x3 and CN's II-XII intact bilaterally Sensorium / Orientation: alert Motor Exam: strength 5/5 throughout Psych mental status grossly normal Mood & Affect: Negative for depressed or tearful Skin no rashes or lesions noted and no wounds MDM MDM Lab Data Labs: Laboratory Results - last 24 hr 09/23/22 09/23/22 09/23/22 11:33 11:33 11:45 WBC 4.0 L RBC 4.35 Hgb 13.5 Hct 40.9 MCV 94.0 MCH 31.0 MCHC 33.0 RDW Std Deviation 45.4 H RDW Coeff of Andressa 13.2 Plt Count 131 L MPV 9.5 Immature Gran % (Auto) 1.800 H Neut % (Auto) 82.5 H Lymph % (Auto) 14.9 L [place] % (Auto) 0.3 Eos % (Auto) 0.0 Baso % (Auto) 0.5 Absolute Neuts (auto) 3.3 Absolute Lymphs (auto) 0.59 L Nucleated RBC % 0.5 Sodium 140 Potassium 3.7 Chloride 105 Carbon Dioxide 27.0 Anion Gap 8 BUN 27 H Creatinine 1.17 H Estim Creat Clear Calc 33.51 Est GFR (MDRD) Af Amer 59 L Est GFR (MDRD) Non-Af 49 L BUN/Creatinine Ratio 23.1 H Glucose 141 H Calcium 9.0 Total Bilirubin 0.80 Direct Bilirubin 0.21 AST 16 ALT 29 Alkaline Phosphatase 77 Total Protein 7.5 Albumin 4.0 Globulin 3.5 Lipase 130 Urine Color Yellow Urine Clarity Sl. Cloudy Urine pH 6.0 Ur Specific [place] 1.015 Urine Protein 30 H Urine Glucose (UA) Normal Urine Ketones Negative Urine Occult Blood 150 H Urine Nitrite Negative Urine Bilirubin Negative Urine Urobilinogen Normal Ur Leukocyte Esterase 500 H Urine RBC 5-10 SEEN Urine WBC 25-50 SEEN Ur Squamous Epith Cells 0-5 SEEN Urine Bacteria 2+ Urine Mucus 0 SEEN Discharge Plan Triage Chief Complaint: Abd Pain ED Provider: Jose Mcnally Dx/Rx/DC Orders Clinical Impression: Vomiting, Ureterolithiasis, Renal colic on right side Instructions: ED Kidney Stone w/ Colic Prescriptions: No Action pantoprazole 40 mg tablet,delayed release (DR/EC) 40 mg PO DAILY Label Comments: take 1 tablet by mouth once daily Alive Women's 50 Plus Gummy 120 mcg-150 mcg -37.5 mg tablet,chewable PO elderberry fruit 350 mg capsule PO losartan 100 mg tablet 100 mg PO DAILY Qty: 90 3RF hydrochlorothiazide 25 mg tablet 25 mg PO DAILY Qty: 90 3RF zinc gluconate 50 mg tablet 50 mg PO DAILY ascorbic acid (vitamin C) 1,000 mg capsule 1 g PO DAILY cholecalciferol (vitamin D3) 125 mcg (5,000 unit) capsule 125 mcg PO DAILY acetaminophen [Arthritis Pain Relief (acetam)] 650 mg tablet extended release 650 mg PO Q12H glycerin (bulk) 100 % liquid See Rx Instructions miscellaneous 2XW Label Comments: APPLY 1 GRAM (4 CLICKS)rINTRAVAGINALLY TWICE PERsWEEK Rx Instructions: 1 gram intravaginally as directed twice a week; Versatile Rich Cream 1 applic topical 2XW Label Comments: APPLY 1 GRAM (4 CLICKS)rINTRAVAGINALLY TWICE PERsWEEK metoprolol succinate 50 mg tablet extended release 24 hr 50 mg PO QHS Label Comments: take 1 tablet by mouth every evening amlodipine 10 mg tablet 5 mg PO DAILY Label Comments: take 1/2 tablet by mouth once daily Primary Care Provider: Meng Haas Referrals: Meng Haas, [Primary Care Provider] -
[2022-09-23 11:43] LABS: Absolute Lymphocyte Count 0.59 X10^3/uL (0.83-4.51); Absolute Neutrophil Count 3.3 X10^3/uL (2.0-7.7); Basophil# 0.02 X10^3/uL; Basophil% 0.5 % (0-1); Hematocrit 40.9 % (37-47); Hemoglobin 13.5 g/dL (12.0-15.0); Lymphocyte # 0.59 X10^3/ul (0.83-4.51); Lymphocyte % 14.9 % (19-41); Mean Platelet Vol. 9.5 fl (6.2-12.0); Monocyte# 0.01 X10^3/uL; Monocyte% 0.3 % (0-10); NRBC Flagged by Analyzer 0.5 % (0-5); Neutrophil # 3.26 X10^3/uL (2.7-7.7); Neutrophil % 82.5 % (47-70); POSITIVE DIFFERENTIAL YES; POSITIVE MORPHOLOGY YES; Platelet Count 131 K/mm3 (150-450); RBC Distribution Width CV 13.2 % (11.6-14.6); RBC Distribution Width SD 45.4 fl (35.1-43.9); Red Blood Count 4.35 M/mm3 (4.2-5.4)
[2022-09-23 11:46] LABS: Differential Indicated SCAN CRITERIA MET
[2022-09-23] MEDS: Ondansetron 4 MG/2 ML Vial IV ×2 (11:47→12:25)
[2022-09-23] MEDS: 0.9% Normal Saline 1,000 ML 1000 ML IV (11:47)
[2022-09-23] MEDS: Morphine 4 MG/ML Syringe IV (11:48)
[2022-09-23 11:53] LABS: Mucous, Urine 0 SEEN /hpf (<or=2+)
[2022-09-23 11:55] LABS: Color, Urine Yellow (Yellow); Glucose, Dipstick Normal (Normal); Ketone-Dipstick Negative (Negative); Leukocyte Esterase-Dipstick 500 /ul (Negative); Nitrite-Dipstick Negative (Negative); Occult Blood-Urine 150 /ul (Negative); Protein-Dipstick 30 mg/dl (Negative); Specific Gravity, Urine 1.015 (1.002-1.030); Urine Bilirubin Dipstick Negative (Negative); Urine Clarity Sl. Cloudy (Clear); Urine Urobilinogen Normal (Normal)
[2022-09-23 12:01] LABS: AST(SGOT) 16 U/L (15-37); Alanine Aminotransfer ALT/SGPT 29 U/L (13-56); Alkaline Phosphatase 77 U/L (45-117); Anion Gap 8 (5-15); BUN 27 mg/dL (7-18); BUN/Creat Ratio 23.1 RATIO (10-20); Bilirubin, Direct 0.21 mg/dL (0.00-0.30); Chloride 105 mmol/L (98-107); Creatinine, Serum 1.17 mg/dL (0.55-1.02); EST Glomerular Filtration Rate 49 mL/min (>60); Est Glom Filt Rate - Afr Amer 59 mL/min (>60); Estimated Creatinine Clearance 33.51 ml/min; Globulin 3.5 g/dL (2.2-4.2); Glucose 141 mg/dL (74-106); Lipase 130 U/L (73-393); Potassium 3.7 mmol/L (3.5-5.1); Protein, Total 7.5 g/dL (6.4-8.2); Sodium Level 140 mmol/L (136-145)
[2022-09-23 12:01] LABS: Bacteria 2+ /hpf (None Seen); Red Blood Cells-Urine 5-10 SEEN /hpf (0-5); Squamous Epithelial Cells - UA 0-5 SEEN /hpf (5-10); White Blood Cells 25-50 SEEN /hpf (0-5)
[2022-09-23 12:35] LABS: Platelet Estimate ADEQUATE (ADEQ); Polychromasia 1+
[2022-09-23] MEDS: proMETHazine 25 MG Tablet PO (12:54)
[2022-09-25 14:20] LABS: Pathologist Review Reviewed
== END 2022-09-23 13:26 | disposition home or self-care (01) ==
PROVIDERS: Emergency Provider Emergency Medicine; PCP Student in an Organized Health Care Education/Training Program; Visit Provider Emergency Medicine
DX: N13.2 Hydronephrosis with renal and ureteral calculous obstruction (principal); R68.83 Chills (without fever); N23 Unspecified renal colic; I10 Essential (primary) hypertension
CPT/HCPCS: 96361; 96376; 96375; 96374; 99282; 74176; 80048; 80076; 81001; 83690; 85025; 87040; 87077; J7030; J2405

== ENCOUNTER 2022-09-24 10:40 | Inpatient (IN) | payer MEDICARE, SELFPAY ==
[2022-09-24] VITALS (21 sets, daily range): BP systolic 81–131; BP diastolic 52–84; PULSE 78–108; RESP 16–28; TEMP 36.6–38.5; O2SAT 93–99; BMI 29.4; BMI 30.4
--- NOTE | 2022-09-24 11:13 | RAD_ITS ---
INDICATION: dyspnea EXAMINATION/TECHNIQUE: X-RAY - XR Chest 1 View COMPARISON: October 15, [address] of the abdomen and pelvis dated September 23, 2022 FINDINGS: LINES/DEVICES: None. LUNGS: No consolidation, edema or effusion. No pneumothorax. MEDIASTINUM AND CARDIOVASCULAR STRUCTURES: Cardiac silhouette not enlarged. Central airways and mediastinal contour are unremarkable. BONES AND SOFT TISSUES: Unremarkable. RAD/Chest 1 View (Portable) IMPRESSION: No radiographic evidence of acute cardiopulmonary disease. Electronically Signed: Cierra Levi MD at 11:47 EST ,
--- NOTE | 2022-09-24 11:13 | EKG12_ITS ---
Test Reason : Blood Pressure : / mmHG Vent. Rate : 090 BPM Atrial Rate : 090 BPM P-R Int : 160 ms QRS Dur : 084 ms QT Int : 374 ms P-R-T Axes : 038 018 022 degrees QTc Int : 457 ms Normal sinus rhythm Normal ECG Confirmed by ARCHANA TIMMONS, GROVER ([id number]), brands editor SOLE SALGADO ([id number]) on 09/25/2022 10:04:23 AM Referred By: Nellie Valdivia Confirmed By:GROVER MAGAÑA MD
--- NOTE | 2022-09-24 11:15 | EDS_ITS ---
HPI History of Present Illness Chief Complaint: Shortness of Breath Informant: patient and family Narrative Narrative: 67-year-old female presenting to the emergency department with a chief complaint of dyspnea. The patient was seen in the emergency department yesterday diagnosed with a distal right ureteral stone. She states that that pain has gone away. She denies any urinary frequency like she had yesterday. She does note she developed some diarrhea last night as well as today. She states that she feels short of breath. She states that her blood pressure was 230+ systolically today. She notes nausea still present. She has developed cough is not productive. She notes rhinorrhea. She notes dry mouth and feels unsteady on her feet. Earlier today she was laying in bed and began to feel chilled and began to shake and have tingling in her fingers. [facility] Medical History MORA (dyspnea on exertion) Essential (primary) hypertension Hypertension Mitral valve disorder Rosacea Situational anxiety Snoring Home Medications amlodipine 10 mg tablet 5 mg PO DAILY 08/05/22 [History Last Taken Unknown] metoprolol succinate 50 mg tablet,extended release 24 hr 50 mg PO QHS 08/05/22 [History Last Taken Unknown] acetaminophen 650 mg tablet,extended release (Arthritis Pain Relief (acetaminophen) ER) 650 mg PO Q12H 09/04/22 [History Last Taken Unknown] ascorbic acid (vitamin C) 1,000 mg capsule 1 g PO DAILY 09/04/22 [History Last Taken Unknown] cholecalciferol (vitamin D3) 125 mcg (5,000 unit) capsule 125 mcg PO DAILY 09/04/22 [History Last Taken Unknown] cream base no.175 (bulk) (Versatile Rich topical cream) 1 applic topical 2XW 09/04/22 [History Last Taken Unknown] glycerin (bulk) 100 % liquid See Rx Instructions miscellaneous 2XW 09/04/22 [History Last Taken Unknown] zinc gluconate 50 mg tablet 50 mg PO DAILY 09/04/22 [History Last Taken Unknown] elderberry fruit 350 mg capsule mg PO 09/20/22 [History Last Taken Unknown] hydrochlorothiazide 25 mg tablet 25 mg PO DAILY #90 tabs 09/20/22 [Rx Last Taken Unknown] losartan 100 mg tablet 100 mg PO DAILY #90 tabs 09/20/22 [Rx Last Taken Unknown] [id number] 120 mcg-lutein 150 mcg-herb 37.5 mg chewable tablet (Alive Women's 50 Plus Gummy) tab PO 09/20/22 [History Last Taken Unknown] pantoprazole 40 mg tablet,delayed release 40 mg PO DAILY 09/20/22 [History Last Taken Unknown] ketorolac 10 mg tablet 10 mg PO Q8H PRN pain 5 days #15 tabs 09/23/22 [Rx Last Taken Unknown] oxycodone 10 mg tablet 10 mg PO Q6H PRN pain 5 days #20 tabs 09/23/22 [Rx Last Taken Unknown] promethazine 25 mg tablet 25 mg PO Q6H PRN PRN Nausea #10 TABLETS 09/23/22 [Rx Last Taken Unknown] Allergy/AdvReac Type Severity Reaction Status Date / Time ciprofloxacin Allergy Hives Verified 09/24/22 10:45 minocycline Allergy Chest Verified 09/24/22 10:45 tightness Sulfa (Sulfonamide Allergy PT UNSURE Verified 09/24/22 10:45 Antibiotics) OF REACTION Tetracyclines Allergy heart Verified 09/24/22 10:45 palpitations Family History Father Heart disease Bladder cancer Hypertension Diabetes Hyperlipidemia Mother Hypertension Colon polyps COPD (chronic obstructive pulmonary disease) Rheumatic arteritis Osteoporosis Dementia Diverticulitis History of bowel resection Daughter Lupus Sister Hypertension Grandfather Cancer prostate Surgical History H/O lumpectomy History of bladder repair surgery History of breast biopsy History of colonoscopy History of tonsillectomy S/P AI (total abdominal hysterectomy) Social History Smoking Status: Never smoker alcohol intake: never substance use type: does not use caffeine: No what type of physical activity do you participate in: none seatbelt use: always do you feel safe at home: Yes additional social history: Kory ZENDEJAS ED Constitutional Constitutional ED: Reports chills; Denies fever(s) or weight loss Eyes Eyes: Denies change in vision or diplopia ENT ENT ED: Reports rhinorrhea; Denies ear pain or sore throat Cardiovascular Cardiovascular: Denies chest pain, orthopnea, palpitations or racing heartbeat Respiratory/Chest Respiratory/Chest: Reports cough and dyspnea; Denies orthopnea Gastrointestinal Gastrointestinal: Reports abdominal pain, diarrhea, nausea and vomiting Genitourinary Genitourinary ED: Denies dysuria, hematuria or urinary frequency Musculoskeletal Musculoskeletal: Denies arthralgias or myalgias Integumentary Denies abscess or rash Neurologic Neurologic: Denies headache(s) or weakness Psychiatric Psychiatric: Denies anxiety, depression, suicidal ideation or suicidal thoughts Endocrine Endocrinology: Denies polydipsia, polyphagia or polyuria Allergic/Immunologic Allergic/Immunologic ED: Denies mouth swelling, tongue swelling or urticaria EXAM Physical Exam Const Vital Signs: 09/24/22 10:45 09/24/22 11:23 09/24/22 11:23 Temperature 101.3 F H 101.3 F H Temperature Source Temporal Temporal Pulse Rate 108 H 96 Respiratory Rate 24 H 26 H Respiratory Effort Short of Breath Respiratory Depth Shallow Respiratory Pattern Tachypnea Blood Pressure 98/57 L 86/52 L Blood Pressure Mean 70 63 Pulse Ox 94 93 Oxygen Delivery Method Room Air Room Air Room Air 09/24/22 12:00 09/24/22 13:00 09/24/22 14:00 Temperature 98.0 F Temperature Source Oral Pulse Rate 88 83 84 Respiratory Rate 22 H 24 H 18 Respiratory Effort Respiratory Depth Respiratory Pattern Blood Pressure 83/57 L 82/60 L 89/66 L Blood Pressure Mean 65 67 73 Pulse Ox 98 97 99 Oxygen Delivery Method Room Air Room Air Room Air 09/24/22 14:04 Temperature Temperature Source Pulse Rate 84 Respiratory Rate 16 Respiratory Effort Respiratory Depth Respiratory Pattern Blood Pressure 90/70 Blood Pressure Mean 76 Pulse Ox 97 Oxygen Delivery Method Room Air Positive well nourished and well developed General Appearance ED: well developed HEENT Reports normocephalic, head/scalp atraumatic and moist mucous membranes Eyes PERRL and EOMs intact bilaterally Neck no lymphadenopathy, supple and no JVD Resp normal respiratory effort and clear to auscultation bilaterally Cardio regular rate, regular rhythm and no murmurs GI normal to inspection, nondistended, normoactive bowel sounds and non-tender Palpation: soft Back/Spine no CVA tenderness and normal ROM Extremity normal to inspection General Extremety ED: Negative for edema General Extremity: Negative for edema Neuro oriented x3 and CN's II-XII intact bilaterally Sensorium / Orientation: alert Motor Exam: strength 5/5 throughout Psych mental status grossly normal Mood & Affect: Negative for depressed or tearful Skin no rashes or lesions noted and no wounds Sepsis Attestation Sepsis Alert: Yes Sepsis Attestation: Agree w/Sepsis Date exam was performed: 09/24/22 Time exam was performed: 13:00 Possible Source of Sepsis: Genitourinary Sepsis Organ Dysfunction Criteria Present: SBP < 90 mmHg or MAP < 65 mmHg, C reatinine > 2.0 mg/dL, Platelets <100,000 / uL, Lactic Acid > 2 mmol/L and Serum CO2 < 20 mmol/L (on BMP) MDM MDM MDM Narrative Medical decision making narrative: My interpretation of the chest x-ray is no acute process. COVID and influenza are negative. Patient received IV fluids and Tylenol. During liters 2 and 3 her blood pressure did improve to 90/70. She continues to look well and mentate well. White count is 5.6 with 9 bands and a platelet count of 68. INR is 1.3. Creatinine today is 2.96 as compared to 1.1 yesterday. Lactic acid is elevated at 4.5. Urinalysis with 50-100 white cells but some contamination with skin cells and 4+ bacteria. This is nitrate negative. She received Rocephin after blood and urine cultures were obtained. I spoke with the hospitalist and we will be placing the patient in the ICU. I also spoke with her urologist Dr. Santa who is on her way to see the patient. Lab Data Attestation: I reviewed the patient's lab results. Labs: Laboratory Results - last 24 hr 09/24/22 09/24/22 09/24/22 11:20 11:20 11:20 WBC 5.6 RBC 4.20 Hgb 13.0 Hct 38.2 MCV 91.0 MCH 31.0 MCHC 34.0 RDW Std Deviation 46.6 H RDW Coeff of Andressa 14.0 Plt Count 68 L MPV 10.9 Neut % (Auto) Not Reportable Absolute Neuts (auto) 4.7 Absolute Lymphs (auto) 0.56 L Total Counted 100 Neutrophils % (Manual) 75 H Band Neutrophils % 9 H Lymphocytes % (Manual) 10 L Monocytes % (Manual) 5 Metamyelocytes % 1 Diff Path Review May foll Platelet Estimate MOD DEC Poikilocytosis 1+ Ovalocytes 1+ PT 16.0 H INR 1.3 APTT 36.9 H Sodium 136 Potassium 3.8 Chloride 104 Carbon Dioxide 19.0 L Anion Gap 13 BUN 44 H Creatinine 2.96 H Estim Creat Clear Calc 13.25 Est GFR (MDRD) Af Amer 20 L Est GFR (MDRD) Non-Af 17 L BUN/Creatinine Ratio 14.9 Glucose 81 Lactic Acid Calcium 8.1 L Total Bilirubin 1.30 H AST 38 H ALT 39 Alkaline Phosphatase 128 H Troponin I High Sens 54 Total Protein 6.7 Albumin 3.3 Globulin 3.4 Albumin/Globulin Ratio 1.0 Urine Color Urine Clarity Urine pH Ur Specific [place] Urine Protein Urine Glucose (UA) Urine Ketones Urine Occult Blood Urine Nitrite Urine Bilirubin Urine Urobilinogen Ur Leukocyte Esterase Urine RBC Urine WBC Ur Squamous Epith Cells Urine Bacteria Urine Mucus 09/24/22 09/24/22 11:20 12:17 WBC RBC Hgb Hct MCV MCH MCHC RDW Std Deviation RDW Coeff of Andressa Plt Count MPV Neut % (Auto) Absolute Neuts (auto) Absolute Lymphs (auto) Total Counted Neutrophils % (Manual) Band Neutrophils % Lymphocytes % (Manual) Monocytes % (Manual) Metamyelocytes % Diff Path Review Platelet Estimate Poikilocytosis Ovalocytes PT INR APTT Sodium Potassium Chloride Carbon Dioxide Anion Gap BUN Creatinine Estim Creat Clear Calc Est GFR (MDRD) Af Amer Est GFR (MDRD) Non-Af BUN/Creatinine Ratio Glucose Lactic Acid 4.5 H* Calcium Total Bilirubin AST ALT Alkaline Phosphatase Troponin I High Sens Total Protein Albumin Globulin Albumin/Globulin Ratio Urine Color Yellow Urine Clarity Cloudy Urine pH 5.0 Ur Specific [place] 1.025 Urine Protein 100 H Urine Glucose (UA) Normal Urine Ketones 5 H Urine Occult Blood 150 H Urine Nitrite Negative Urine Bilirubin 1 H Urine Urobilinogen 1 H Ur Leukocyte Esterase 500 H Urine RBC 0-5 SEEN Urine WBC 50-100 SEEN Ur Squamous Epith Cells 10-25 SEEN Urine Bacteria 4+ Urine Mucus 0 SEEN Radiography Diagnostic Testing: Clinical Impression(s) from Imaging Studies Chest X-Ray 09/24/22 11:13 IMPRESSION: No radiographic evidence of acute cardiopulmonary disease. Electronically Signed: Cierra Levi MD at 11:47 EST , Abdomen/Pelvis CT 09/24/22 12:47 IMPRESSION: Stable right hydroureteronephrosis secondary to a stable 3.5 mm within the ureterovesicular junction. Colonic diverticulosis associated with mild stranding adjacent to the distal descending colon, may be reactive however cannot exclude focal diverticulitis. Fatty infiltration of the liver associated with hepatomegaly. Electronically Signed: Cierra Levi MD at 13:13 EST , EKG Initial EKG: Attestation: I personally reviewed and interpreted this EKG as follows: Comments: Normal sinus rhythm ventricular rate of 90 bpm Critical Care Time Critical Care Time: Yes Critical care time (excluding procedures): 30-74 minutes (35 min), Including time spent:, Discussing w/Patient &/or Family/Contestant Coordinator, Discussing w/Consultants, Arranging Admission or Transfer and Performing Direct Patient Care at Bedside Discharge Plan Dx/Rx/DC Orders Clinical Impression: Acute UTI, Ureterolithiasis, Acute renal failure, Thrombocytopenia, Elevated lactic acid level Disposition Disposition: Acute Care [facility]
[2022-09-24] MEDS: 0.9% Normal Saline 1,000 ML 999 ML IV (11:25)
[2022-09-24] MEDS: Acetaminophen 500 MG Tablet 1000 MG PO (11:31)
[2022-09-24 12:12] LABS: International Normalized Ratio 1.3
[2022-09-24 12:14] LABS: Partial Thromboplast Time 36.9 Seconds (24.1-36.2)
[2022-09-24 12:26] LABS: AST(SGOT) 38 U/L (15-37); Alanine Aminotransfer ALT/SGPT 39 U/L (13-56); Albumin, Serum 3.3 g/dL (3.2-5.0); Alkaline Phosphatase 128 U/L (45-117); Anion Gap 13 (5-15); BUN 44 mg/dL (7-18); BUN/Creat Ratio 14.9 RATIO (10-20); Calcium,Total 8.1 mg/dL (8.5-10.1); Chloride 104 mmol/L (98-107); Creatinine, Serum 2.96 mg/dL (0.55-1.02); EST Glomerular Filtration Rate 17 mL/min (>60); Est Glom Filt Rate - Afr Amer 20 mL/min (>60); Estimated Creatinine Clearance 13.25 ml/min; Globulin 3.4 g/dL (2.2-4.2); Glucose 81 mg/dL (74-106); Potassium 3.8 mmol/L (3.5-5.1); Protein, Total 6.7 g/dL (6.4-8.2); Sodium Level 136 mmol/L (136-145); Troponin-I HS 54 pg/mL (3.0-54.0)
[2022-09-24 12:31] LABS: Mucous, Urine 0 SEEN /hpf (<or=2+)
[2022-09-24 12:37] LABS: Lactic Acid 4.5 mmol/L (0.4-1.9)
[2022-09-24 12:38] LABS: Color, Urine Yellow (Yellow); Glucose, Dipstick Normal (Normal); Ketone-Dipstick 5 mg/dl (Negative); Leukocyte Esterase-Dipstick 500 /ul (Negative); Nitrite-Dipstick Negative (Negative); Occult Blood-Urine 150 /ul (Negative); Protein-Dipstick 100 mg/dl (Negative); Specific Gravity, Urine 1.025 (1.002-1.030); Urine Clarity Cloudy (Clear); Urine Urobilinogen 1 mg/dl (Normal)
[2022-09-24 12:41] LABS: Urine Bilirubin Dipstick 1 mg/dL (Negative)
[2022-09-24 12:44] LABS: Hematocrit 38.2 % (37-47); Mean Platelet Vol. 10.9 fl (6.2-12.0); POSITIVE COUNT YES; POSITIVE DIFFERENTIAL YES; POSITIVE MORPHOLOGY YES; Platelet Count 68 K/mm3 (150-450); RBC Distribution Width SD 46.6 fl (35.1-43.9); White Blood Count 5.6 K/mm3 (4.4-11.0)
[2022-09-24 12:44] LABS: Bacteria 4+ /hpf (None Seen); Red Blood Cells-Urine 0-5 SEEN /hpf (0-5); Squamous Epithelial Cells - UA 10-25 SEEN /hpf (5-10); White Blood Cells 50-100 SEEN /hpf (0-5)
[2022-09-24 12:46] LABS: Differential Indicated MANUAL DIFF
--- NOTE | 2022-09-24 12:47 | CT_ITS ---
INDICATION: kidney stone EXAMINATION: CT ABDOMEN AND PELVIS WITHOUT CONTRAST - CT Abdomen And Pelvis W/O Contrast Injection TECHNIQUE: Helically acquired images were obtained of the abdomen and pelvis without oral or IV contrast. A radiation dose optimization technique was used for this scan. IV Contrast dosage and agent: None. Oral contrast: None. COMPARISON: September 23, 2022 FINDINGS: LOWER CHEST: There is minimal bibasilar atelectasis and/or scarring. No cardiomegaly or pericardial effusion. The lack of intravenous contrast limits evaluation of solid visceral organs. LIVER: The liver is low in attenuation consistent with fatty infiltration. There is hepatomegaly. No focal mass. GALLBLADDER AND BILIARY TREE: No calcified gallstones. No gallbladder distension or wall edema. No intra- or extrahepatic biliary ductal dilation. PANCREAS: No focal cystic or solid mass. SPLEEN: Normal size without focal cystic or solid mass. ADRENAL GLANDS: No nodules. KIDNEYS AND URETERS: Normal renal size and position. There is grossly stable right-sided mild hydroureteronephrosis secondary to a stable 3.5 mm calculus within the ureterovesicular junction. PERITONEUM: No ascites or free air. No other fluid collection. BOWEL: No evidence of acute appendicitis. No stomach or bowel distension. There are diverticula arising from the colon. There is focal stranding adjacent to diverticula arising from the distal ascending colon. NODES: No enlarged mesenteric or retroperitoneal lymph nodes. VESSELS: Aorta is non-dilated. There are peripheral calcifications of the abdominal aorta consistent atherosclerosis. URINARY BLADDER: Unremarkable. REPRODUCTIVE ORGANS: No pelvic masses. ABDOMINAL WALL: No discrete abdominal or pelvic wall hernia. BONES: There are degenerative changes of the lumbar spine. CT/Abdomen/Pelvis without Cont IMPRESSION: Stable right hydroureteronephrosis secondary to a stable 3.5 mm within the ureterovesicular junction. Colonic diverticulosis associated with mild stranding adjacent to the distal descending colon, may be reactive however cannot exclude focal diverticulitis. Fatty infiltration of the liver associated with hepatomegaly. Electronically Signed: Cierra Levi MD at 13:13 EST ,
[2022-09-24 12:57] LABS: Lymphocyte 10 % (19-41); Metamyelocyte 1 % (0-1); Monocyte 5 % (0-10); Neutrophil-Band 9 % (0-5); Neutrophil-Segmented 75 % (47-70); Total Cells Counted 100 (MANUAL DIFF)
[2022-09-24 12:58] LABS: Ovalocyte 1+
[2022-09-24 12:59] LABS: Absolute Neutrophil Count 4.7 X10^3/uL (2.0-7.7)
[2022-09-24 13:00] LABS: Absolute Lymphocyte Count 0.56 X10^3/uL (0.83-4.51); Platelet Estimate MOD DEC (ADEQ); Poikilocytosis 1+
[2022-09-24] MEDS: 0.9% Normal Saline 1,000 ML 1000 ML IV ×2 (13:15)
--- NOTE | 2022-09-24 13:22 | ED.RN ---
Per lab they have pt's blood cultures, unsure why they were not showing received in the computer.
[2022-09-24] MEDS: Ceftriaxone 1 GM/50 ML BAG IV (13:31)
--- NOTE | 2022-09-24 14:12 | ED.RN ---
PRESSURE BAG APPLIED TO IV SOLUTION PER PHYSICIAN REQUEST. PT AWAKE
--- NOTE | 2022-09-24 14:30 | PCM.HP.STD ---
HPI - General General Date of Admission: 09/24/22 Date of Service: 09/24/22 Chief Complaint: Fever, right sided flank pain, recent Dx kidney stone, worsening. HPI Narrative The patient is a 67 y/o F w/ PMHx: HTN, Anxiety, Rosacea, GERD, Obesity, Chronic Thrombocytopenia who presents to the [facility] ED on 09/24/22 with history of onset over the last 48-72 hours onset of R sided lower suprapubic discomfort worse with urination with decreased UOP prompting initial ED evaluation on 09/23/22 with diagnosis distal right ureteral stone with discharge to home with pain regimen and antiemetic regimen; however, overnight patient despite resolution of pain had onset of malaise, fatigue, loose stools, nausea in addition to onset chills prompting repeat ED evaluation. Work-up in the ED Work-up in the ED included T103.3, heart rate initially 108 with most recent repeat 84, BP initially 90-57 decreasing to a low of 83/57 with most recent repeat 90/70, respiratory rate 24, 94% on room air, CBC with WC 5.6, hemoglobin 13, platelet 68 with lymphopenia and increased neutrophil percent, coags with PT 16, NR 1.3, PTT 36.9, CMP with CO2 19, BUN/creatinine 44/2.96, lactic acid 4.5, T bili 1.30, AST/ALT 238/39, alk phos 128, troponin 54, urinalysis with evidence of significant dehydration and concern for urinary tract infection although urine squamous epithelial cells 10-25 thus not the best sample, urine culture pending per ED, RSV antigen negative, SARS COVID and influenza antigens negative, chest x-ray with no acute cardiopulmonary findings, CT abdomen and pelvis with a subtle right hydroureteronephrosis secondary to a stable 3.5 mm calculus within the ureterovesicular junction, colonic diverticulosis associated with mild stranding adjacent to the distal descending colon possibly reactive however cannot exclude focal diverticulitis, fatty infiltration of the liver associate with hepatomegaly. In the ED patient ministered Tylenol 1000 mg p.o. x1, Rocephin as well as 30 cc/kg IV fluid bolus per sepsis protocol. Discussed case with Dr. Santa following patient evaluation and she notes intention to come and evaluation and transition patient to the OR for stent placement. Relayed plan of intervention to ED staff. [facility] Medical History MORA (dyspnea on exertion) Essential (primary) hypertension Hypertension Mitral valve disorder Rosacea Situational anxiety Snoring Home Medications amlodipine 10 mg tablet 5 mg PO DAILY 08/05/22 [History Last Taken Unknown] metoprolol succinate 50 mg tablet,extended release 24 hr 50 mg PO QHS 08/05/22 [History Last Taken Unknown] acetaminophen 650 mg tablet,extended release (Arthritis Pain Relief (acetaminophen) ER) 650 mg PO Q12H 09/04/22 [History Last Taken Unknown] ascorbic acid (vitamin C) 1,000 mg capsule 1 g PO DAILY 09/04/22 [History Last Taken Unknown] cholecalciferol (vitamin D3) 125 mcg (5,000 unit) capsule 125 mcg PO DAILY 09/04/22 [History Last Taken Unknown] cream base no.175 (bulk) (Versatile Rich topical cream) 1 applic topical 2XW 09/04/22 [History Last Taken Unknown] glycerin (bulk) 100 % liquid See Rx Instructions miscellaneous 2XW 09/04/22 [History Last Taken Unknown] zinc gluconate 50 mg tablet 50 mg PO DAILY 09/04/22 [History Last Taken Unknown] elderberry fruit 350 mg capsule mg PO 09/20/22 [History Last Taken Unknown] hydrochlorothiazide 25 mg tablet 25 mg PO DAILY #90 tabs 09/20/22 [Rx Last Taken Unknown] losartan 100 mg tablet 100 mg PO DAILY #90 tabs 09/20/22 [Rx Last Taken Unknown] zvyujpfu-smz-mdsvr 120 mcg-lutein 150 mcg-herb 37.5 mg chewable tablet (Alive Women's 50 Plus Gummy) tab PO 09/20/22 [History Last Taken Unknown] pantoprazole 40 mg tablet,delayed release 40 mg PO DAILY 09/20/22 [History Last Taken Unknown] ketorolac 10 mg tablet 10 mg PO Q8H PRN pain 5 days #15 tabs 09/23/22 [Rx Last Taken Unknown] oxycodone 10 mg tablet 10 mg PO Q6H PRN pain 5 days #20 tabs 09/23/22 [Rx Last Taken Unknown] promethazine 25 mg tablet 25 mg PO Q6H PRN PRN Nausea #10 TABLETS 09/23/22 [Rx Last Taken Unknown] Allergy/AdvReac Type Severity Reaction Status Date / Time ciprofloxacin Allergy Hives Verified 09/24/22 10:45 minocycline Allergy Chest Verified 09/24/22 10:45 tightness Sulfa (Sulfonamide Allergy PT UNSURE Verified 09/24/22 10:45 Antibiotics) OF REACTION Tetracyclines Allergy heart Verified 09/24/22 10:45 palpitations Family History Father Heart disease Bladder cancer Hypertension Diabetes Hyperlipidemia Mother Hypertension Colon polyps COPD (chronic obstructive pulmonary disease) Rheumatic arteritis Osteoporosis Dementia Diverticulitis History of bowel resection Daughter Lupus Sister Hypertension Grandfather Cancer prostate Surgical History H/O lumpectomy History of bladder repair surgery History of breast biopsy History of colonoscopy History of tonsillectomy S/P AI (total abdominal hysterectomy) Social History (Updated 09/24/22 @ 16:[address] Nellie Valdivia MD) household members: spouse Smoking Status: Never smoker alcohol intake: never substance use type: does not use caffeine: No what type of physical activity do you participate in: none seatbelt use: always do you feel safe at home: Yes additional social history: Kory ZENDEJAS Narrative Admission Review of Systems: CONSTITUTIONAL: No weight loss, fever, + chills, weakness or fatigue. HEENT: Eyes: No visual loss, blurred vision, double vision or yellow sclerae. Ears, Nose, Throat: No hearing loss, sneezing, congestion, runny nose or sore throat. SKIN: No rash or itching, lesions, wounds. CARDIOVASCULAR: No chest pain, chest pressure or chest discomfort, palpitations, edema, orthopnea, syncopal events. RESPIRATORY: + shortness of breath, No cough or sputum, wheezing, hemoptysis. GASTROINTESTINAL: + anorexia, nausea, abdominal pain/suprapubic discomfort, loose stools, no melena, BRBPR. GENITOURINARY: + Decreased UOP, R lower lateral suprapubic discomfort. NEUROLOGICAL: No headache, dizziness, syncope, paralysis, ataxia, numbness or tingling in the extremities, focal weakness, change in bowel or bladder control, seizure. MUSCULOSKELETAL: + muscle, back pain, joint pain or stiffness. HEMATOLOGIC: No anemia, bleeding or bruising. LYMPHATICS: No enlarged nodes. No history of splenectomy. PSYCHIATRIC: No history of depression or anxiety. ENDOCRINOLOGIC: No reports of sweating, cold or heat intolerance. No polyuria or polydipsia. ALLERGIES: + history of hives. Vital Signs Vital Signs Vital Signs: 09/24/22 10:45 09/24/22 11:23 09/24/22 11:23 Temperature 101.3 F H 101.3 F H Temperature Source Temporal Temporal Pulse Rate 108 H 96 Respiratory Rate 24 H 26 H Respiratory Effort Short of Breath Respiratory Depth Shallow Respiratory Pattern Tachypnea Blood Pressure 98/57 L 86/52 L Blood Pressure Mean 70 63 Pulse Ox 94 93 Oxygen Delivery Method Room Air Room Air Room Air 09/24/22 12:00 09/24/22 13:00 09/24/22 14:00 Temperature 98.0 F Temperature Source Oral Pulse Rate 88 83 84 Respiratory Rate 22 H 24 H 18 Respiratory Effort Respiratory Depth Respiratory Pattern Blood Pressure 83/57 L 82/60 L 89/66 L Blood Pressure Mean 65 67 73 Pulse Ox 98 97 99 Oxygen Delivery Method Room Air Room Air Room Air 09/24/22 14:04 Temperature Temperature Source Pulse Rate 84 Respiratory Rate 16 Respiratory Effort Respiratory Depth Respiratory Pattern Blood Pressure 90/70 Blood Pressure Mean 76 Pulse Ox 97 Oxygen Delivery Method Room Air Weight Weight: 150 lb 12.739 oz Body Mass Index (BMI) 29.4 Physical Exam Narrative Physical Examination: General: Awake, alert, oriented x 3, cooperative, laying in the ED bed, fatigued and ill-appearing. Skin: Normal color, normal turgor, no icterus, no cyanosis. HEENT: AT/NC, EOMI, PERRLA, dry MM, no carotid bruits or JVD noted. Lungs: Improved, mildly no rales, ronchi or wheezing. Heart: Currently regular rate and rhythm; no gallop, rub audible. Abdomen: Soft, mild discomfort to bilateral lower quadrants with no rebound or guarding, ND, mildly hyperactive BS, no HSM. Extremities: No cyanosis, clubbing, or edema. Neurological: Patient awake, alert, oriented as noted, cognitive function intact; pupils equally reactive to light and accommodation, cranial nerves II-XII grossly normal, moving all 4 extremities, no focal deficits, strength moderately to severely globally decreased secondary to acute presentation Psychiatric: Affect appears fatigued, ill-appearing, no acute evidence of depressive or anxiety feelings. Results Lab / Micro Data Result Diagrams: 09/24/22 11:20 09/24/22 11:20 Labs: Laboratory Results - last 24 hr 09/24/22 11:20: WBC 5.6, RBC 4.20, Hgb 13.0, Hct 38.2, MCV 91.0, MCH 31.0, MCHC 34.0, RDW Std Deviation 46.6 H, RDW Coeff of Andressa 14.0, Plt Count 68 L, MPV 10.9, Neut % (Auto) Not Reportable, Absolute Neuts (auto) 4.7, Absolute Lymphs (auto) 0.56 L, Total Counted 100, Neutrophils % (Manual) 75 H, Band Neutrophils % 9 H, Lymphocytes % (Manual) 10 L, Monocytes % (Manual) 5, Metamyelocytes % 1, Diff Path Review May , Platelet Estimate MOD DEC, Poikilocytosis 1+, Ovalocytes 1+ 09/24/22 11:20: PT 16.0 H, INR 1.3, APTT 36.9 H 09/24/22 11:20: Sodium 136, Potassium 3.8, Chloride 104, Carbon Dioxide 19.0 L, Anion Gap 13, BUN 44 H, Creatinine 2.96 H, Estim Creat Clear Calc 13.25, Est GFR (MDRD) Af Amer 20 L, Est GFR (MDRD) Non-Af 17 L, BUN/Creatinine Ratio 14.9, Glucose 81, Calcium 8.1 L, Total Bilirubin 1.30 H, AST 38 H, ALT 39, Alkaline Phosphatase 128 H, Troponin I High Sens 54, Total Protein 6.7, Albumin 3.3, Globulin 3.4, Albumin/Globulin Ratio 1.0 09/24/22 11:20: Lactic Acid 4.5 H* 09/24/22 12:17: Urine Color Yellow, Urine Clarity Cloudy, Urine pH 5.0, Ur Specific [place] 1.025, Urine Protein 100 H, Urine Glucose (UA) Normal, Urine Ketones 5 H, Urine Occult Blood 150 H, Urine Nitrite Negative, Urine Bilirubin 1 H, Urine Urobilinogen 1 H, Ur Leukocyte Esterase 500 H, Urine RBC 0-5 SEEN, Urine WBC 50-100 SEEN, Ur Squamous Epith Cells 10-25 SEEN, Urine Bacteria 4+, Urine Mucus 0 SEEN Micro: Microbiology 09/24/22 11:35 Interface Orders Rapid RSV (DFA) - Final 09/24/22 11:35 Nasal Secretion SARS-CoV-2 & FLU Antigen (Rapid) - Final Radiology Impression Chest X-Ray 09/24/22 11:13 IMPRESSION: No radiographic evidence of acute cardiopulmonary disease. Electronically Signed: Cierra Levi MD at 11:47 EST , Abdomen/Pelvis CT 09/24/22 12:47 IMPRESSION: Stable right hydroureteronephrosis secondary to a stable 3.5 mm within the ureterovesicular junction. Colonic diverticulosis associated with mild stranding adjacent to the distal descending colon, may be reactive however cannot exclude focal diverticulitis. Fatty infiltration of the liver associated with hepatomegaly. Electronically Signed: Cierra Levi MD at 13:13 EST , Assessment & Plan Assessment/Plan (1) Acute UTI: PLAN: Plan The patient is a 67 y/o F w/ PMHx: HTN, Anxiety, Rosacea, GERD, Obesity, Chronic Thrombocytopenia who presents to the [facility] ED on 09/24/22 with history of onset over the last 48-72 hours onset of R sided lower suprapubic discomfort worse with urination with decreased UOP prompting initial ED evaluation on 09/23/22 with diagnosis distal right ureteral stone with discharge to home with pain regimen and antiemetic regimen; however, overnight patient despite resolution of pain had onset of malaise, fatigue, loose stools, nausea in addition to onset chills prompting repeat ED evaluation. #1. Acute Sepsis, Multifactorial, secondary to #1 Acute ureterolithiasis with subtle right hydroureteronephrosis with associated complicated urinary tract infection and #2 with evidence of end organ damage with lactic acidosis, RAYMUNDO, hyperbilirubinemia/elevated AST and hypotension: We will admit to the ICU to be cautious, responding to fluid well, maintain on telemetry monitoring, continue aggressive hydration with close BP monitoring with addition of norepinephrine if not maintaining appropriate MAP but currently not ncessary, will request service or work dispatcher consultation, given findings on CT scan to be cautious will involve patient's urologist Dr. Santa, will maintain n.p.o. status given possible #2 as noted also, will maintain on IV Zosyn to cover both, maintain on IV PPI, as needed pain regimen as well as antiemetic regimen. #2. Possible Focal Acute Distal Descending Diverticulitis: Will maintain on aggressive hydration, monitor I&Os, maintain NPO status w/ bowel rest, treat with zosyn regimen, IV PPI, anti-emetics, pain regimen PRN. #3. Acute kidney injury: Secondary to acute presentation #1, #2 and hypoperfusion associated. Admission BUN/Cr 44/2.96, prior baseline creatinine noted to be 0.6-0.7 primarily. Will hydrate as noted above, hold nephrotoxic medications and repeat chemistry in AM. If no improvement would plan FeNa. UCx pending as noted. Continue treatments as noted above. #4. Acute on chronic thrombocytopenia, likely secondary to acute illness as noted above: Admission platelets 68, baseline prior primarily 130-140s, will continue to trend CBC. #5. Hypertension: Holding all HTN regimen given acute presentation #1, add back once appropriate BP and renal function appropriate. #6. Anxiety: Noted to be situational, not on regimen, encourage continued outpatient assessment and regimen as needed. #7. Obesity: Weight loss and lifestyle changes encouraged. #8. GERD: Maintain on IV PPI as noted. #9. DVT prophylaxis: SCDs, hold chemoprophylaxis given notable thrombocytopenia, acute on chronic as well as pending evaluation per Dr. Santa. Charges/Coding Visit Charges Inpatient E&M: 55244 Init Hosp L3
--- NOTE | 2022-09-24 14:31 | NURSING ---
ICU WHITE SEPSIS, UTI, KIDNEY STONE
--- NOTE | 2022-09-24 14:55 | ED.RN ---
IVF bag #2 hung at 1300 bag #3 hung at 1315, both running wide open through RT AC IV.
--- NOTE | 2022-09-24 14:58 | ED.RN ---
Per Dr Skip Santa would like pt to go to OR from ER
[2022-09-24] MEDS: 0.9% Normal Saline 1,000 ML 250 ML IV (15:05)
--- NOTE | 2022-09-24 15:06 | ED.RN ---
Attempted to call report to ICU, nurse giving report on another patient right now. Will call back in a few minutes.
--- NOTE | 2022-09-24 15:10 | ED.RN ---
Report given to ICU
--- NOTE | 2022-09-24 15:17 | PCM.CONS.GEN ---
Assessment & Plan Assessment/Plan (1) Ureterolithiasis: (2) Acute UTI: (3) Acute renal failure: (4) Vomiting: PLAN: Plan cystoscopy with right ureteral stent insertion. informed consent obtained IV antibiotics, cultures supportive care admission to medicine after the procedure, bed in ICU HPI Consult Data Date of Consult: 09/24/22 HPI Narrative Reason for Consultation: obstructing right ureteral stone with urosepsis HPI Narrative: TAY BOWEN, is a 67 F who presents with fever, chills, nausea and right flank pain. She was seen in the ER yesterday and was sent home after being diagnosed with a 3.5 mm distal ureteral calculus with mild hydronephrosis. Her symptoms continued to get worse and she represented to the emergency room today with a temperature of 101. Informed consent was obtained for placement of a right ureteral stent. [facility] Medical History MORA (dyspnea on exertion) Essential (primary) hypertension Hypertension Mitral valve disorder Rosacea Situational anxiety Snoring Home Medications amlodipine 10 mg tablet 5 mg PO DAILY 08/05/22 [History Last Taken Unknown] metoprolol succinate 50 mg tablet,extended release 24 hr 50 mg PO QHS 08/05/22 [History Last Taken Unknown] acetaminophen 650 mg tablet,extended release (Arthritis Pain Relief (acetaminophen) ER) 650 mg PO Q12H 09/04/22 [History Last Taken Unknown] ascorbic acid (vitamin C) 1,000 mg capsule 1 g PO DAILY 09/04/22 [History Last Taken Unknown] cholecalciferol (vitamin D3) 125 mcg (5,000 unit) capsule 125 mcg PO DAILY 09/04/22 [History Last Taken Unknown] cream base no.175 (bulk) (Versatile Rich topical cream) 1 applic topical 2XW 09/04/22 [History Last Taken Unknown] glycerin (bulk) 100 % liquid See Rx Instructions miscellaneous 2XW 09/04/22 [History Last Taken Unknown] zinc gluconate 50 mg tablet 50 mg PO DAILY 09/04/22 [History Last Taken Unknown] elderberry fruit 350 mg capsule mg PO 09/20/22 [History Last Taken Unknown] hydrochlorothiazide 25 mg tablet 25 mg PO DAILY #90 tabs 09/20/22 [Rx Last Taken Unknown] losartan 100 mg tablet 100 mg PO DAILY #90 tabs 09/20/22 [Rx Last Taken Unknown] sishtcnt-pim-epzbe 120 mcg-lutein 150 mcg-herb 37.5 mg chewable tablet (Alive Women's 50 Plus Gummy) tab PO 09/20/22 [History Last Taken Unknown] pantoprazole 40 mg tablet,delayed release 40 mg PO DAILY 09/20/22 [History Last Taken Unknown] ketorolac 10 mg tablet 10 mg PO Q8H PRN pain 5 days #15 tabs 09/23/22 [Rx Last Taken Unknown] oxycodone 10 mg tablet 10 mg PO Q6H PRN pain 5 days #20 tabs 09/23/22 [Rx Last Taken Unknown] promethazine 25 mg tablet 25 mg PO Q6H PRN PRN Nausea #10 TABLETS 09/23/22 [Rx Last Taken Unknown] Allergy/AdvReac Type Severity Reaction Status Date / Time ciprofloxacin Allergy Hives Verified 09/24/22 10:45 minocycline Allergy Chest Verified 09/24/22 10:45 tightness Sulfa (Sulfonamide Allergy PT UNSURE Verified 09/24/22 10:45 Antibiotics) OF REACTION Tetracyclines Allergy heart Verified 09/24/22 10:45 palpitations Family History Father Heart disease Bladder cancer Hypertension Diabetes Hyperlipidemia Mother Hypertension Colon polyps COPD (chronic obstructive pulmonary disease) Rheumatic arteritis Osteoporosis Dementia Diverticulitis History of bowel resection Daughter Lupus Sister Hypertension Grandfather Cancer prostate Surgical History H/O lumpectomy History of bladder repair surgery History of breast biopsy History of colonoscopy History of tonsillectomy S/P AI (total abdominal hysterectomy) Social History Smoking Status: Never smoker alcohol intake: never substance use type: does not use caffeine: No what type of physical activity do you participate in: none seatbelt use: always do you feel safe at home: Yes additional social history: Kory ZENDEJAS Constitutional Constitutional: Reports chills, fatigue, fever(s), malaise and poor appetite Eyes Eyes: Reports systems reviewed and no addt'l complaints, except as documented ENT HEENT: Reports systems reviewed and no addt'l complaints, except as documented Cardiovascular Cardiovascular: Denies chest pain or dyspnea Respiratory/Chest Respiratory/Chest: Denies chest congestion or cough Gastrointestinal Gastrointestinal: Reports nausea and vomiting Genitourinary Genitourinary: Reports flank pain and urinary urgency Musculoskeletal Musculoskeletal: Reports myalgias Integumentary Integumentary: Reports systems reviewed and no addt'l complaints, except as documented Neurologic Neurologic: Reports systems reviewed and no addt'l complaints, except as documented Psychiatric Psychiatric: Reports systems reviewed and no addt'l complaints, except as documented Endocrine Endocrinology: Reports systems reviewed and no addt'l complaints, except as documented Hematologic/Lymphatic Hematologic/Lymphatic: Reports systems reviewed and no addt'l complaints, except as documented Allergic/Immunologic Allergic/Immunologic: Reports systems reviewed and no addt'l complaints, except as documented Physical Exam Const alert and oriented x3 General Appearance: cooperative, well kempt and well developed Orientation / Consciousness: awake and oriented to person HEENT normocephalic, head/scalp atraumatic, hearing grossly normal bilaterally, external ears normal and external nose normal; Negative for moist oral mucous membranes Eyes General Eye: normal appearance of both eyes Neck supple General: trachea midline Lymph Lymphatic: no lymphedema noted Chest inspection of chest normal Resp normal respiratory effort, normal air movement, no retractions and no use of accessory muscles Cardio regular rate and regular rhythm GI soft to palpation Bladder / Kidney Exam: CVA tenderness right Back/Spine General Back: CVA tenderness right Extremity normal to inspection Skin no rashes or lesions noted, no wounds, skin turgor normal, no jaundice, no petechiae and no mottling Neuro oriented x3, CN's II-XII intact bilaterally and moves all extremities Psych mental status grossly normal and thought process normal Lab / Micro Data Result Diagrams: 09/24/22 11:20 09/24/22 11:20 Labs: Laboratory Results - last 24 hr 09/24/22 11:20: WBC 5.6, RBC 4.20, Hgb 13.0, Hct 38.2, MCV 91.0, MCH 31.0, MCHC 34.0, RDW Std Deviation 46.6 H, RDW Coeff of Andressa 14.0, Plt Count 68 L, MPV 10.9, Neut % (Auto) Not Reportable, Absolute Neuts (auto) 4.7, Absolute Lymphs (auto) 0.56 L, Total Counted 100, Neutrophils % (Manual) 75 H, Band Neutrophils % 9 H, Lymphocytes % (Manual) 10 L, Monocytes % (Manual) 5, Metamyelocytes % 1, Diff Path Review May foll, Platelet Estimate MOD DEC, Poikilocytosis 1+, Ovalocytes 1+ 09/24/22 11:20: PT 16.0 H, INR 1.3, APTT 36.9 H 09/24/22 11:20: Sodium 136, Potassium 3.8, Chloride 104, Carbon Dioxide 19.0 L, Anion Gap 13, BUN 44 H, Creatinine 2.96 H, Estim Creat Clear Calc 13.25, Est GFR (MDRD) Af Amer 20 L, Est GFR (MDRD) Non-Af 17 L, BUN/Creatinine Ratio 14.9, Glucose 81, Calcium 8.1 L, Total Bilirubin 1.30 H, AST 38 H, ALT 39, Alkaline Phosphatase 128 H, Troponin I High Sens 54, Total Protein 6.7, Albumin 3.3, Globulin 3.4, Albumin/Globulin Ratio 1.0 09/24/22 11:20: Lactic Acid 4.5 H* 09/24/22 12:17: Urine Color Yellow, Urine Clarity Cloudy, Urine pH 5.0, Ur Specific [place] 1.025, Urine Protein 100 H, Urine Glucose (UA) Normal, Urine Ketones 5 H, Urine Occult Blood 150 H, Urine Nitrite Negative, Urine Bilirubin 1 H, Urine Urobilinogen 1 H, Ur Leukocyte Esterase 500 H, Urine RBC 0-5 SEEN, Urine WBC 50-100 SEEN, Ur Squamous Epith Cells 10-25 SEEN, Urine Bacteria 4+, Urine Mucus 0 SEEN Micro: Microbiology 09/24/22 11:35 Interface Orders Rapid RSV (DFA) - Final 09/24/22 11:35 Nasal Secretion SARS-CoV-2 & FLU Antigen (Rapid) - Final Radiology Impression Chest X-Ray 09/24/22 11:13 IMPRESSION: No radiographic evidence of acute cardiopulmonary disease. Electronically Signed: Ceirra Levi MD at 11:47 EST , Abdomen/Pelvis CT 09/24/22 12:47 IMPRESSION: Stable right hydroureteronephrosis secondary to a stable 3.5 mm within the ureterovesicular junction. Colonic diverticulosis associated with mild stranding adjacent to the distal descending colon, may be reactive however cannot exclude focal diverticulitis. Fatty infiltration of the liver associated with hepatomegaly. Electronically Signed: Cierra Levi MD at 13:13 EST ,
--- NOTE | 2022-09-24 15:28 | OP.PCM_ITS ---
Report of Operation Date of Procedure: 09/24/22 Pre-Operative Diagnosis: right ureteral stone with urosepsis Post-Operative Diagnosis: same Surgery/Procedure Performed:: cystoscopy with right ureteral stent insertion Surgeon: Sandra Santa Type of Anesthesia: MAC Specimen's removed: urine culture Description of Procedure: The patient is a 67-year-old female with a right obstructing stone and urosepsis who presents for a right ureteral stent insertion and cystoscopy. Informed consent has been obtained. The patient was taken to the operating room and placed on the operating room table. Anesthesia monitored the head, neck, airway, IV access and vital signs throughout the case. Once anesthesia was appropriately administered, the patient was placed into dorsolithotomy position and prepped and draped in usual sterile fashion. The cystoscope was inserted through the urethra under direct visualization and into the urinary bladder. The right ureteral orifice was identified and gently intubated with an 0.035 Glidewire. A 6 Vietnamese 22 cm JJ stent was passed over the wire with good positioning in the renal pelvis as well as the urinary bladder as seen on flu oroscopic evaluation. At this time a urine was sent for culture. The bladder was drained with an indwelling Newman catheter and the patient was taken to the ICU. There were no complications during this procedure. Grafts/Implants Used: 6 x 22cm JJ stent Complications none Admit VTE Documentation VTE Present on Admission: Yes VTE Mechan Device Prophylaxis: SCD's VTE Pharm Prophylaxis ordered?: Yes
--- NOTE | 2022-09-24 15:35 | ED.RN ---
OR staff to ER and got pt to take to surgery.
--- NOTE | 2022-09-24 15:40 | NURSING ---
ICU 2 AFTER SURGERY
[2022-09-24 16:00] LABS: Reflex Lactate? Y
[2022-09-24] MEDS: 0.9% Normal Saline 1,000 ML 150 ML IV ×2 (16:39→23:44)
[2022-09-24 17:39] LABS: Lactic Acid 2.7 mmol/L (0.4-1.9)
[2022-09-24] MEDS: Ondansetron 4 MG/2 ML Vial IV (17:43)
[2022-09-24] MEDS: Acetaminophen 325 MG Tablet 650 MG PO (19:18)
[2022-09-24] MEDS: fentaNYL 100 MCG/2 ML Ampul 25 MCG IV (20:22)
[2022-09-24] MEDS: proCHLORPERazine 10 MG/2 ML Vial 5 MG IV (20:22)
[2022-09-25] VITALS (25 sets, daily range): BP systolic 114–138; BP diastolic 70–105; PULSE 73–88; RESP 16–30; TEMP 36.6–37.2; O2SAT 94–97
[2022-09-25] MEDS: 0.9% Normal Saline 1,000 ML 150 ML IV (05:54)
[2022-09-25 06:09] LABS: Hematocrit 35.6 % (37-47); Hemoglobin 11.8 g/dL (12.0-15.0); Mean Corp Hgb Conc 33.1 g/dL (32-36); Mean Corpuscular Hgb 31.4 pg (27.0-32.0); Mean Corpuscular Volume 94.7 fL (81-99); POSITIVE COUNT YES; POSITIVE MORPHOLOGY YES; Platelet Count 37 K/mm3 (150-450); RBC Distribution Width CV 14.6 % (11.6-14.6); RBC Distribution Width SD 51.1 fl (35.1-43.9); Red Blood Count 3.76 M/mm3 (4.2-5.4); White Blood Count 16.4 K/mm3 (4.4-11.0)
[2022-09-25 06:17] LABS: Differential Indicated MANUAL DIFF
[2022-09-25 06:24] LABS: ALB/GLOB Ratio 0.8 RATIO (0.9-2.4); AST(SGOT) 97 U/L (15-37); Alanine Aminotransfer ALT/SGPT 92 U/L (13-56); Albumin, Serum 2.7 g/dL (3.2-5.0); Alkaline Phosphatase 47 U/L (45-117); Anion Gap 10 (5-15); BUN 45 mg/dL (7-18); BUN/Creat Ratio 26.2 RATIO (10-20); Calcium,Total 7.2 mg/dL (8.5-10.1); Chloride 113 mmol/L (98-107); Creatinine, Serum 1.72 mg/dL (0.55-1.02); EST Glomerular Filtration Rate 31 mL/min (>60); Est Glom Filt Rate - Afr Amer 38 mL/min (>60); Globulin 3.3 g/dL (2.2-4.2); Glucose 97 mg/dL (74-106); Potassium 4.1 mmol/L (3.5-5.1); Sodium Level 144 mmol/L (136-145)
[2022-09-25 06:55] LABS: Absolute Neutrophil Count 14.1 X10^3/uL (2.0-7.7)
[2022-09-25 06:56] LABS: Absolute Lymphocyte Count 1.48 X10^3/uL (0.83-4.51); Lymphocyte 9 % (19-41); Metamyelocyte 1 % (0-1); Monocyte 3 % (0-10); Myelocyte 1 % (0-0); Neutrophil-Band 18 % (0-5); Neutrophil-Segmented 68 % (47-70); Platelet Estimate MKD DEC (ADEQ); Red Cell Morphology NORM C+C NORMAL (NORM C&C); Total Cells Counted 100 (MANUAL DIFF)
[2022-09-25 07:37] LABS: Procalcitonin > 50.00 ng/mL (0.00-0.09)
--- NOTE | 2022-09-25 10:20 | PCM.PN.HOSP ---
Subjective Subjective Feels a little bit but her today than when she came in, still having some lower abdominal cramping Objective Data Objective Data Vital Signs: Vital Signs Temp Pulse Resp BP Pulse Ox O2 Del Method O2 Flow Rate 97.9 F 74 21 H 123/83 H 94 Room Air 2 09/25/22 08:00 09/25/22 08:00 09/25/22 08:00 09/25/22 08:00 09/25/22 08:00 09/25/22 08:30 09/25/22 07:48 Oxygen Flow Rate (L/min) 2 Oxygen Delivery Method Room Air Weight: 155 lb 10.342 oz Body Mass Index (BMI) 30.4 Intake & Output: Intake and Output for Last 24 Hours 09/24/22 09/25/22 09/26/22 03:59 03:59 03:59 Intake Total 3555.17 / 3555.17 925 / 925 Output Total 950 / 950 550 / 550 Balance 2605.17 / 2605.17 375 / 375 Lab / Micro Data Result Diagrams: 09/25/22 05:45 09/25/22 05:45 Labs: Laboratory Results - last 24 hr 09/24/22 11:20: WBC 5.6, RBC 4.20, Hgb 13.0, Hct 38.2, MCV 91.0, MCH 31.0, MCHC 34.0, RDW Std Deviation 46.6 H, RDW Coeff of Andressa 14.0, Plt Count 68 L, MPV 10.9, Neut % (Auto) Not Reportable, Absolute Neuts (auto) 4.7, Absolute Lymphs (auto) 0.56 L, Total Counted 100, Neutrophils % (Manual) 75 H, Band Neutrophils % 9 H, Lymphocytes % (Manual) 10 L, Monocytes % (Manual) 5, Metamyelocytes % 1, Diff Path Review May foll, Platelet Estimate MOD DEC, Poikilocytosis 1+, Ovalocytes 1+ 09/24/22 11:20: PT 16.0 H, INR 1.3, APTT 36.9 H 09/24/22 11:20: Sodium 136, Potassium 3.8, Chloride 104, Carbon Dioxide 19.0 L, Anion Gap 13, BUN 44 H, Creatinine 2.96 H, Estim Creat Clear Calc 13.25, Est GFR (MDRD) Af Amer 20 L, Est GFR (MDRD) Non-Af 17 L, BUN/Creatinine Ratio 14.9, Glucose 81, Calcium 8.1 L, Total Bilirubin 1.30 H, AST 38 H, ALT 39, Alkaline Phosphatase 128 H, Troponin I High Sens 54, Total Protein 6.7, Albumin 3.3, Globulin 3.4, Albumin/Globulin Ratio 1.0 09/24/22 11:20: Lactic Acid 4.5 H* 09/24/22 12:17: Urine Color Yellow, Urine Clarity Cloudy, Urine pH 5.0, Ur Specific [place] 1.025, Urine Protein 100 H, Urine Glucose (UA) Normal, Urine Ketones 5 H, Urine Occult Blood 150 H, Urine Nitrite Negative, Urine Bilirubin 1 H, Urine Urobilinogen 1 H, Ur Leukocyte Esterase 500 H, Urine RBC 0-5 SEEN, Urine WBC 50-100 SEEN, Ur Squamous Epith Cells 10-25 SEEN, Urine Bacteria 4+, Urine Mucus 0 SEEN 09/24/22 16:40: Lactic Acid 2.7 H* 09/25/22 05:45: Procalcitonin > 50.00 H 09/25/22 05:45: WBC 16.4 H, RBC 3.76 L, Hgb 11.8 L, Hct 35.6 L, MCV 94.7, MCH 31.4, MCHC 33.1, RDW Std Deviation 51.1 H, RDW Coeff of Andressa 14.6, Plt Count 37 L*, MPV 12.0, Neut % (Auto) Not Reportable, Absolute Neuts (auto) 14.1 H, Absolute Lymphs (auto) 1.48, Total Counted 100, Neutrophils % (Manual) 68, Band Neutrophils % 18 H, Lymphocytes % (Manual) 9 L, Monocytes % (Manual) 3, Metamyelocytes % 1, Myelocytes % 1 H, Diff Path Review May foll, Platelet Estimate MKD DEC, RBC Morphology NORM C+C 09/25/22 05:45: Sodium 144, Potassium 4.1, Chloride 113 H, Carbon Dioxide 21.0, Anion Gap 10, BUN 45 H, Creatinine 1.72 H, Estim Creat Clear Calc 22.80, Est GFR (MDRD) Af Amer 38 L, Est GFR (MDRD) Non-Af 31 L, BUN/Creatinine Ratio 26.2 H, Glucose 97, Calcium 7.2 L, Total Bilirubin 1.10 H, AST 97 H, ALT 92 H, Alkaline Phosphatase 47, Total Protein 6.0 L, Albumin 2.7 L, Globulin 3.3, Albumin/Globulin Ratio 0.8 L Micro: Microbiology 09/24/22 11:35 Interface Orders Rapid RSV (DFA) - Final 09/24/22 11:35 Nasal Secretion SARS-CoV-2 & FLU Antigen (Rapid) - Final Radiography Diagnostic Testing: Radiology Impression Chest X-Ray 09/24/22 11:13 IMPRESSION: No radiographic evidence of acute cardiopulmonary disease. Electronically Signed: Cierra Levi MD at 11:47 EST , Abdomen/Pelvis CT 09/24/22 12:47 IMPRESSION: Stable right hydroureteronephrosis secondary to a stable 3.5 mm within the ureterovesicular junction. Colonic diverticulosis associated with mild stranding adjacent to the distal descending colon, may be reactive however cannot exclude focal diverticulitis. Fatty infiltration of the liver associated with hepatomegaly. Electronically Signed: Cierra Levi MD at 13:13 EST , Physical Exam Narrative General: Alert, Oriented x3, Cooperative, No apparent distress HEENT: Atraumatic, PERRLA, EOMI, Normocephalic Oral: Moist Mucosa Neck: Supple, No JVD Lungs: Diminished, Normal air movement, No rhonchi, No wheeze, No rales Cardiovascular: Regular rate, Regular Rhythm, Normal S1, Normal S2, No murmurs Abdomen: Soft, Non Tender, Non-Distended, No Hepato-splenomegaly Extremities: No edema, Capillary Refill Less than 3 Seconds Skin: No rashes, No breakdown Musculoskeletal: No Tenderness to Palpation of Joints or Extremities Neurological: Cranial nerves II-XII grossly intact, Motor Exam 5/5 strength throughout, Sensory exam intact to light touch and pain Psych/Mental Status: Normal Affect, Appropriate Assessment & Plan Assessment/Plan (1) Acute UTI: PLAN: Plan 1. Sepsis secondary to complicated UTI and bacteremia with gram-negative rods/RAYMUNDO/acute on chronic thrombocytopenia ? She is status post a cystoscopy with a right ureteral stent placement on 09/24/2022 ? Continue with broad-spectrum antibiotics, cultures pending ? Is not requiring any pressor support and her RAYMUNDO is improving ? Continue with IV fluids and will advance her diet ? At this time thrombocytopenia is likely reactive to infection, will hold off on any chemical anticoagulation and continue with SCDs 2. HTN ? Blood pressures are stable, will hold her blood pressure medication secondary to her sepsis 3. GERD ? Stable ? Continue with PPI DVT: SCDs Charges/Coding Visit Charges Inpatient E&M: 82485 Subs Hosp L2
--- NOTE | 2022-09-25 10:35 | CON.PCM.CC_ITS ---
Assessment & Plan Assessment/Plan (1) Sepsis: (2) Acute renal failure: (3) Acute UTI: (4) Ureterolithiasis: PLAN: Plan RECOMMENDATIONS: 1. Agree with discontinuation of vancomycin 2. Continue Zosyn pending sensitivities 3. Okay to reinitiate blood pressure medications in a stepwise fashion 4. Transition from normal saline to LR 5. Hemodynamically stable on room air. Will sign off from a critical care perspective IMPRESSIONS: 1. Sepsis secondary to UTI secondary to renal colliculi Patient with obstruction of the right collecting system. Patient growing gram-negative's in the blood. Endorgan damage indicated by acute kidney injury, elevated lactate and initial hypotension. Patient responded well to fluid resuscitation, antibiotics and relieving of the obstruction. Patient does have some improvement in renal function this morning. Patient growing gram-negatives in the blood, so Zosyn is likely sufficient. 2. Acute kidney injury Patient likely with postobstructive and prerenal etiologies given the stone and sepsis. Patient is responding well to release of the ston e/obstruction and antibiotic therapy. Blood pressures are sufficient at this time. We will reinitiate blood pressure medications in a stepwise fashion. We will hold off on diuretic and ARB for 24 hours. If renal function continues to improve, these can likely be reinitiated tomorrow 3. Thrombocytopenia Patient with lower platelet counts in the past. Patient with significant thrombocytopenia at this time. There is only minor hematuria at this time and blood counts appear to be holding otherwise. Patient may require work-up as an outpatient, but this may also be related to patient's sepsis. 4. Hypertension/GERD/anxiety Complicates care, management, recovery and prognosis. Okay to continue with baseline medications except for what is described above. HPI Consult Data Date of Consult: 09/25/22 HPI Narrative Reason for Consultation: Sepsis HPI Narrative: TAY BOWEN is a 67 F, with past medical history listed below, who presents to [facility] on 07/25/2022 secondary to dyspnea. Patient had been seen in the emergency department on the day prior and diagnosed with a distal right urethral stone. Patient states that she had some improvement in her pain, but did develop some diarrhea overnight. Patient had developed more shortness of breath and nausea. Patient did have a cough and rhinorrhea, but did not report any production. Patient did report fever and chills, along with tingling in her fingers. In the ER, patient was febrile at 101.3 ?F, tachycardic at 108 bpm and hypotensive at 98/57. Patient was tolerating room air at that time. Laboratory work-up showed a white blood cell count of 5.6, hemoglobin of 13 and a platelet count of 68. Coagulation studies were relatively normal. Chemistries did show a decreased bicarbonate of 19, elevated creatinine of 2.96 and a total bilirubin of 1.3. Initial lactic acid was elevated at 4.5 and urinalysis was consistent with a UTI. Chest x-ray showed no acute disease, but a CT of the abdomen and pelvis did show hydronephrosis with a distal 3.5 mm stone. Given these findings, urology was consulted and took the patient to emergent procedure for his stent. Patient was subsequently placed in the intensive care unit secondary to concerns for need for pressors. While in the intensive care unit, patient's blood cultures did come back with gram-negative rods. Patient was continued on broad-spectrum antibiotics. Patient reported poor sleep overnight, but otherwise felt improved. Patient does report a discomfort substernally that is worse with deep inhalation and lying flat. Patient does not report using oxygen at baseline. Patient is not currently on any inhalers and does not carry diagnosis of obstructive lung disease. Patient does have multiple allergies to antibiotics, but no rashes have been reported with the current antibiotic selection. Review of systems otherwise negative from a constitutional, HEENT, respiratory, cardiovascular, GI, genitourinary, musculoskeletal, skin, neurologic, psychiatric and hematologic system unless stated above. [facility] Medical History MORA (dyspnea on exertion) Essential (primary) hypertension Hypertension Mitral valve disorder Rosacea Situational anxiety Snoring Home Medications metoprolol succinate 50 mg tablet,extended release 24 hr 50 mg PO DAILY blood pressure 08/05/22 [History Last Taken Unknown] acetaminophen 650 mg tablet,extended release (Arthritis Pain Relief (acetaminophen) ER) 650 mg PO Q12H 09/04/22 [History Last Taken Unknown] ascorbic acid (vitamin C) 1,000 mg capsule 2 g PO DAILY vitamin 09/04/22 [History Last Taken Unknown] cholecalciferol (vitamin D3) 125 mcg (5,000 unit) capsule 250 mcg PO DAILY vitamin 09/04/22 [History Last Taken Unknown] cream base no.175 (bulk) (Versatile Rich topical cream) 1 applic topical 2XW cream 09/04/22 [History Last Taken Unknown] glycerin (bulk) 100 % liquid See Rx Instructions miscellaneous 2XW 09/04/22 [History Last Taken Unknown] zinc gluconate 50 mg tablet 50 mg PO DAILY supplement 09/04/22 [History Last Taken Unknown] elderberry fruit 350 mg capsule 350 mg PO DAILY supplement 09/20/22 [History Last Taken Unknown] hydrochlorothiazide 25 mg tablet 25 mg PO DAILY #90 tabs 09/20/22 [Rx Last Taken Unknown] losartan 100 mg tablet 100 mg PO DAILY #90 tabs 09/20/22 [Rx Last Taken Unknown] uaiadxfa-swn-wluzl 120 mcg-lutein 150 mcg-herb 37.5 mg chewable tablet (Alive Women's 50 Plus Gummy) 1 tab PO DAILY supplement 09/20/22 [History Last Taken Unknown] pantoprazole 40 mg tablet,delayed release 40 mg PO DAILY acid reflux 09/20/22 [History Last Taken Unknown] ketorolac 10 mg tablet 10 mg PO Q8H PRN pain 5 days #15 tabs 09/23/22 [Rx Last Taken Unknown] oxycodone 10 mg tablet 10 mg PO Q6H PRN pain 5 days #20 tabs 09/23/22 [Rx Last Taken Unknown] promethazine 25 mg tablet 25 mg PO Q6H PRN PRN Nausea #10 TABLETS 09/23/22 [Rx Last Taken Unknown] calcium carbonate 500 mg-vitamin D3 3.125 mcg (125 unit) tablet 1 tab PO DAILY supplement 09/25/22 [History Last Taken Unknown] Allergy/AdvReac Type Severity Reaction Status Date / Time ciprofloxacin Allergy Hives Verified 09/24/22 10:45 minocycline Allergy Chest Verified 09/24/22 10:45 tightness Sulfa (Sulfonamide Allergy PT UNSURE Verified 09/24/22 10:45 Antibiotics) OF REACTION Tetracyclines Allergy heart Verified 09/24/22 10:45 palpitations Family History Father Heart disease Bladder cancer Hypertension Diabetes Hyperlipidemia Mother Hypertension Colon polyps COPD (chronic obstructive pulmonary disease) Rheumatic arteritis Osteoporosis Dementia Diverticulitis History of bowel resection Daughter Lupus Sister Hypertension Grandfather Cancer prostate Surgical History H/O lumpectomy History of bladder repair surgery History of breast biopsy History of colonoscopy History of tonsillectomy S/P AI (total abdominal hysterectomy) Social History household members: spouse Smoking Status: Never smoker alcohol intake: never substance use type: does not use caffeine: No what type of physical activity do you participate in: none seatbelt use: always do you feel safe at home: Yes 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 Physical Exam Const alert and oriented x3 General Appearance: cooperative, well kempt and well developed; Negative for ill appearing Orientation / Consciousness: awake HEENT normocephalic, head/scalp atraumatic, hearing grossly normal bilaterally, external ears normal and external nose normal; Negative for moist oral mucous membranes Eyes PERRL, EOMs intact bilaterally, conjunctivae normal and no scleral icterus Neck supple General: trachea midline Lymph Lymphatic: no lymphedema noted Chest inspection of chest normal Resp normal respiratory effort, normal air movement, no retractions and no use of accessory muscles Cardio regular rate, regular rhythm, S1 normal heart sound, S2 normal heart sound, no murmurs, no rub and no gallops GI normal to inspection, nondistended, normoactive bowel sounds and soft to palpation Narrative: Slight hematuria noted in Newman bag Bladder / Kidney Exam: CVA tenderness right (Reportedly improved) Extremity normal to inspection Skin no rashes or lesions noted, no wounds, skin turgor normal, no jaundice, no petechiae and no mottling General Skin Exam: Negative for mottling Neuro oriented x3, CN's II-XII intact bilaterally and moves all extremities Psych mental status grossly normal, thought process normal, cooperative and affect normal Lab / Micro Data Attestation: I reviewed the patient's lab results. Lab results narrative: Patient is not aware of a previous low platelet problem. However, patient has had platelet counts less than 150 since 2017 on review of hospital EMR. Result Diagrams: 09/25/22 05:45 09/25/22 05:45 Labs: Laboratory Results - last 24 hr 09/24/22 11:20: WBC 5.6, RBC 4.20, Hgb 13.0, Hct 38.2, MCV 91.0, MCH 31.0, MCHC 34.0, RDW Std Deviation 46.6 H, RDW Coeff of Andressa 14.0, Plt Count 68 L, MPV 10.9, Neut % (Auto) Not Reportable, Absolute Neuts (auto) 4.7, Absolute Lymphs (auto) 0.56 L, Total Counted 100, Neutrophils % (Manual) 75 H, Band Neutrophils % 9 H, Lymphocytes % (Manual) 10 L, Monocytes % (Manual) 5, Metamyelocytes % 1, Diff Path Review May foll, Platelet Estimate MOD DEC, Poikilocytosis 1+, Ovalocytes 1+ 09/24/22 11:20: PT 16.0 H, INR 1.3, APTT 36.9 H 09/24/22 11:20: Sodium 136, Potassium 3.8, Chloride 104, Carbon Dioxide 19.0 L, Anion Gap 13, BUN 44 H, Creatinine 2.96 H, Estim Creat Clear Calc 13.25, Est GFR (MDRD) Af Amer 20 L, Est GFR (MDRD) Non-Af 17 L, BUN/Creatinine Ratio 14.9, Glucose 81, Calcium 8.1 L, Total Bilirubin 1.30 H, AST 38 H, ALT 39, Alkaline Phosphatase 128 H, Troponin I High Sens 54, Total Protein 6.7, Albumin 3.3, Globulin 3.4, Albumin/Globulin Ratio 1.0 09/24/22 11:20: Lactic Acid 4.5 H* 09/24/22 12:17: Urine Color Yellow, Urine Clarity Cloudy, Urine pH 5.0, Ur Specific [place] 1.025, Urine Protein 100 H, Urine Glucose (UA) Normal, Urine Ke tones 5 H, Urine Occult Blood 150 H, Urine Nitrite Negative, Urine Bilirubin 1 H , Urine Urobilinogen 1 H, Ur Leukocyte Esterase 500 H, Urine RBC 0-5 SEEN, Urine WBC 50-100 SEEN, Ur Squamous Epith Cells 10-25 SEEN, Urine Bacteria 4+, Urine Mucus 0 SEEN 09/24/22 16:40: Lactic Acid 2.7 H* 09/25/22 05:45: Procalcitonin > 50.00 H 09/25/22 05:45: WBC 16.4 H, RBC 3.76 L, Hgb 11.8 L, Hct 35.6 L, MCV 94.7, MCH 31.4, MCHC 33.1, RDW Std Deviation 51.1 H, RDW Coeff of Andressa 14.6, Plt Count 37 L*, MPV 12.0, Neut % (Auto) Not Reportable, Absolute Neuts (auto) 14.1 H, Absolute Lymphs (auto) 1.48, Total Counted 100, Neutrophils % (Manual) 68, Band Neutrophils % 18 H, Lymphocytes % (Manual) 9 L, Monocytes % (Manual) 3, Metamyelocytes % 1, Myelocytes % 1 H, Diff Path Review May foll, Platelet Estimate MKD DEC, RBC Morphology NORM C+C 09/25/22 05:45: Sodium 144, Potassium 4.1, Chloride 113 H, Carbon Dioxide 21.0, Anion Gap 10, BUN 45 H, Creatinine 1.72 H, Estim Creat Clear Calc 22.80, Est GFR (MDRD) Af Amer 38 L, Est GFR (MDRD) Non-Af 31 L, BUN/Creatinine Ratio 26.2 H, Glucose 97, Calcium 7.2 L, Total Bilirubin 1.10 H, AST 97 H, ALT 92 H, Alkaline Phosphatase 47, Total Protein 6.0 L, Albumin 2.7 L, Globulin 3.3, Albumin/Globulin Ratio 0.8 L Micro: Microbiology 09/24/22 11:35 Interface Orders Rapid RSV (DFA) - Final 09/24/22 11:35 Nasal Secretion SARS-CoV-2 & FLU Antigen (Rapid) - Final Radiology Impression Chest X-Ray 09/24/22 11:13 IMPRESSION: No radiographic evidence of acute cardiopulmonary disease. Electronically Signed: Cierra Levi MD at 11:47 EST , Abdomen/Pelvis CT 09/24/22 12:47 IMPRESSION: Stable right hydroureteronephrosis secondary to a stable 3.5 mm within the ureterovesicular junction. Colonic diverticulosis associated with mild stranding adjacent to the distal descending colon, may be reactive however cannot exclude focal diverticulitis. Fatty infiltration of the liver associated with hepatomegaly. Electronically Signed: Cierra Levi MD at 13:13 EST , Charges/Coding Visit Charges Inpatient E&M: 24642 Init Hosp L3
--- NOTE | 2022-09-25 10:50 | CASEMGMT ---
RN CM Face to Face with patient for initial transition planning/care coordination assessment. RN CM introduced self and role at [facility]. Patient sitting in chair, alert and oriented. Patient willing to participate in assessment and is able to answer all questions appropriately. Care providers, pharmacy, and demographics verified. Patient wishes to discharge home, denies need for home health at this time. Patient states she has no further needs or concerns at this time. CM to follow for discharge planning needs that may arise. 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 Patient states she is independent at home. Transportation: self, DME/HHC: Patient states she has shower chair and cane at home. Patient may benefit from walker at discharge. Patient states no preferences for DME. No previous HHC or SNF Disposition Plan: Patient to discharge home with family support and follow-up plans in place. Sanjana JAIME, RN, CM
[2022-09-25] MEDS: Metoprolol(XL)Succ 50 MG Tablet PO (11:21)
[2022-09-25] MEDS: Lactated Ringers 1,000 ML 150 ML IV ×2 (11:22→18:02)
[2022-09-25 13:57] LABS: Pathologist Review Reviewed
[2022-09-25 14:00] LABS: Pathologist Review Reviewed
--- NOTE | 2022-09-25 21:00 | PCM.PROGNOTE ---
Subjective Subjective Having trouble sleeping at night. No nausea but minimal appetite. Had some diarrhea, now just loose stool. Has arthritic pain, but no other flank pain or complaints about the catheter tonight. Objective Data Objective Data Vital Signs: Vital Signs Temp Pulse Resp BP Pulse Ox O2 Del Method O2 Flow Rate 98 F 83 20 H 130/80 H 97 Room Air 2 09/25/22 20:00 09/25/22 20:00 09/25/22 20:00 09/25/22 20:00 09/25/22 20:00 09/25/22 20:00 09/25/22 18:00 Oxygen Flow Rate (L/min) 2 Oxygen Delivery Method Room Air Weight: 70.6 kg Body Mass Index (BMI) 30.4 Intake & Output: Intake and Output for Last 24 Hours 09/23/22 09/24/22 09/25/22 23:59 23:59 23:59 Intake Total 3555.17 / 3555.17 2905 / 2905 Output Total 950 / 950 1400 / 1400 Balance 2605.17 / 2605.17 1505 / 1505 Lab / Micro Data Result Diagrams: 09/25/22 05:45 09/25/22 05:45 Labs: Laboratory Results - last 24 hr 09/24/22 11:20: Diff Path Review Reviewed 09/25/22 05:45: Procalcitonin > 50.00 H 09/25/22 05:45: WBC 16.4 H, RBC 3.76 L, Hgb 11.8 L, Hct 35.6 L, MCV 94.7, MCH 31.4, MCHC 33.1, RDW Std Deviation 51.1 H, RDW Coeff of Andressa 14.6, Plt Count 37 L*, MPV 12.0, Neut % (Auto) Not Reportable, Absolute Neuts (auto) 14.1 H, Absolute Lymphs (auto) 1.48, Total Counted 100, Neutrophils % (Manual) 68, Band Neutrophils % 18 H, Lymphocytes % (Manual) 9 L, Monocytes % (Manual) 3, Metamyelocytes % 1, Myelocytes % 1 H, Diff Path Review Reviewed, Platelet Estimate MKD DEC, RBC Morphology NORM C+C 09/25/22 05:45: Sodium 144, Potassium 4.1, Chloride 113 H, Carbon Dioxide 21.0, Anion Gap 10, BUN 45 H, Creatinine 1.72 H, Estim Creat Clear Calc 22.80, Est GFR (MDRD) Af Amer 38 L, Est GFR (MDRD) Non-Af 31 L, BUN/Creatinine Ratio 26.2 H, Glucose 97, Calcium 7.2 L, Total Bilirubin 1.10 H, AST 97 H, ALT 92 H, Alkaline Phosphatase 47, Total Protein 6.0 L, Albumin 2.7 L, Globulin 3.3, Albumin/Globulin Ratio 0.8 L Micro: Microbiology 09/24/22 16:05 Urine, Midstream Urine Culture - Preliminary GNR 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 09/24/22 12:17 Urine, Clean Catch Urine Culture - Preliminary GNR 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 09/24/22 11:35 Interface Orders Rapid RSV (DFA) - Final 09/24/22 11:35 Nasal Secretion SARS-CoV-2 & FLU Antigen (Rapid) - Final Physical Exam Const alert, oriented x3 and no apparent distress Resp Resp Narrative: back on nasal canula with mild shortness of breath this evening Cardio regular rate GI soft to palpation and non-tender Narrative: liriano draining pink urine Bladder / Kidney Exam: catheter in place Assessment & Plan Assessment/Plan (1) Sepsis: (2) Ureterolithiasis: (3) Acute renal failure: PLAN: Plan continue supportive care remove liriano when ok with medicine plan for stone intervention as outpatient.
[2022-09-25] MEDS: Acetaminophen 325 MG Tablet 650 MG PO (21:16)
[2022-09-25] MEDS: MELATONIN 3 MG TABLET PO (21:17)
[2022-09-26] VITALS (14 sets, daily range): BP systolic 125–156; BP diastolic 74–92; PULSE 72–92; RESP 16–24; TEMP 36.4–37.9; O2SAT 94–97
[2022-09-26] MEDS: Lactated Ringers 1,000 ML 150 ML IV ×2 (00:45→06:52)
[2022-09-26 03:39] LABS: Hematocrit 31.2 % (37-47); Hemoglobin 10.3 g/dL (12.0-15.0); Mean Corpuscular Hgb 31.4 pg (27.0-32.0); Mean Corpuscular Volume 95.1 fL (81-99); POSITIVE COUNT YES; POSITIVE MORPHOLOGY YES; RBC Distribution Width CV 14.6 % (11.6-14.6); Red Blood Count 3.28 M/mm3 (4.2-5.4); White Blood Count 18.5 K/mm3 (4.4-11.0)
[2022-09-26 03:41] LABS: Differential Indicated MANUAL DIFF; Platelet Count 35 K/mm3 (150-450)
[2022-09-26 03:53] LABS: Anion Gap 6 (5-15); BUN 35 mg/dL (7-18); BUN/Creat Ratio 38.7 RATIO (10-20); Calcium,Total 7.6 mg/dL (8.5-10.1); Chloride 115 mmol/L (98-107); EST Glomerular Filtration Rate 66 mL/min (>60); Est Glom Filt Rate - Afr Amer 80 mL/min (>60); Estimated Creatinine Clearance 43.57 ml/min; Glucose 125 mg/dL (74-106); Potassium 3.1 mmol/L (3.5-5.1); Sodium Level 144 mmol/L (136-145)
[2022-09-26 04:10] LABS: Neutrophil-Segmented 77 % (47-70); Total Cells Counted 100 (MANUAL DIFF)
[2022-09-26 04:11] LABS: Lymphocyte 2 % (19-41); Metamyelocyte 3 % (0-1); Monocyte 2 % (0-10); Neutrophil-Band 16 % (0-5); Platelet Estimate MKD DEC (ADEQ)
[2022-09-26 04:12] LABS: Absolute Neutrophil Count 17.2 X10^3/uL (2.0-7.7); Red Cell Morphology NORM C+C NORMAL (NORM C&C)
[2022-09-26 04:13] LABS: Absolute Lymphocyte Count 0.37 X10^3/uL (0.83-4.51); Lymphocyte # 0.37 X10^3/ul (0.83-4.51)
[2022-09-26] MEDS: Potassium Chloride Oral Tablet 20 MEQ 40 MEQ PO (05:08)
[2022-09-26] MEDS: Metoprolol(XL)Succ 50 MG Tablet PO (08:08)
--- NOTE | 2022-09-26 09:07 | PN.HOSP_ITS ---
Subjective Subjective No issues overnight, feels little bit better today. Breathing little bit easier but she has not been out of bed yet today. She is little bit nervous about going home Objective Data Objective Data Vital Signs: Vital Signs Temp Pulse Resp BP Pulse Ox O2 Del Method O2 Flow Rate 98.1 F 79 16 128/74 H 97 Room Air 2 09/26/22 08:00 09/26/22 08:08 09/26/22 08:00 09/26/22 08:00 09/26/22 08:00 09/26/22 08:00 09/26/22 07:02 Oxygen Flow Rate (L/min) 2 Oxygen Delivery Method Room Air Weight: 159 lb 2.78 oz Body Mass Index (BMI) 30.4 Intake & Output: Intake and Output for Last 24 Hours 09/25/22 09/26/22 09/27/22 03:59 03:59 03:59 Intake Total 3555.17 / 3555.17 4115 / 4115 917.5 / 917.5 Output Total 950 / 950 2000 / 2400 400 / 400 Balance 2605.17 / 2605.17 2115 / 1715 517.5 / 517.5 Lab / Micro Data Result Diagrams: 09/26/22 03:28 09/26/22 03:28 Labs: Laboratory Results - last 24 hr 09/24/22 11:20: Diff Path Review Reviewed 09/25/22 05:45: Diff Path Review Reviewed 09/26/22 03:28: WBC 18.5 H, RBC 3.28 L, Hgb 10.3 L, Hct 31.2 L, MCV 95.1, MCH 31 .4, MCHC 33.0, RDW Std Deviation 51.0 H, RDW Coeff of Andressa 14.6, Plt Count 35 L*, MPV 12.0, Neut % (Auto) Not Reportable, Absolute Neuts (auto) 17.2 H, Absolute Lymphs (auto) 0.37 L, Total Counted 100, Neutrophils % (Manual) 77 H, Band Neutrophils % 16 H, Lymphocytes % (Manual) 2 L, Monocytes % (Manual) 2, Metamyelocytes % 3 H, Diff Path Review May , Platelet Estimate MKD DEC, RBC Morphology NORM C+C 09/26/22 03:28: Sodium 144, Potassium 3.1 L, Chloride 115 H, Carbon Dioxide 23.0, Anion Gap 6, BUN 35 H, Creatinine 0.90, Estim Creat Clear Calc 43.57, Est GFR (MDRD) Af Amer 80, Est GFR (MDRD) Non-Af 66, BUN/Creatinine Ratio 38.7 H, Glucose 125 H, Calcium 7.6 L Micro: Microbiology 09/24/22 16:05 Urine, Midstream Urine Culture - Final Escherichia coli 09/24/22 12:17 Urine, Clean Catch Urine Culture - Final Escherichia coli 09/24/22 11:35 Interface Orders Rapid RSV (DFA) - Final 09/24/22 11:35 Nasal Secretion SARS-CoV-2 & FLU Antigen (Rapid) - Final Physical Exam Narrative General: Alert, Oriented x3, Cooperative, No apparent distress HEENT: Atraumatic, PERRLA, EOMI, Normocephalic Oral: Moist Mucosa Neck: Supple, No JVD Lungs: Diminished, Normal air movement, No rhonchi, No wheeze, No rales Cardiovascular: Regular rate, Regular Rhythm, Normal S1, Normal S2, No murmurs Abdomen: Soft, Non Tender, Non-Distended, No Hepato-splenomegaly Extremities: No edema, Capillary Refill Less than 3 Seconds Skin: No rashes, No breakdown Musculoskeletal: No Tenderness to Palpation of Joints or Extremities Neurological: Cranial nerves II-XII grossly intact, Motor Exam 5/5 strength throughout, Sensory exam intact to light touch and pain Psych/Mental Status: Normal Affect, Appropriate Assessment & Plan Assessment/Plan (1) Acute UTI: PLAN: Plan 1. Sepsis secondary to complicated UTI and bacteremia with pansensitive /RAYMUNDO/acute on chronic thrombocytopenia ? She is status post a cystoscopy with a right ureteral stent placement on 09/24/2022 ? Continue with broad-spectrum antibiotics, cultures with a pansensitive E. coli ? Is not requiring any pressor support and her RAYMUNDO is resolved ? Continue with IV fluids and will advance her diet ? At this time thrombocytopenia is likely reactive to infection, will hold off on any chemical anticoagulation and continue with SCDs 2. HTN ? Blood pressures are stable ? Can resume her home blood pressure medications 3. GERD ? Stable ? Continue with PPI DVT: SCDs Charges/Coding Visit Charges Inpatient E&M: 34188 Subs Hosp L2
[2022-09-26] MEDS: Loperamide 2 MG Capsule PO (12:15)
[2022-09-26] MEDS: 0.9% Saline Lock 10 ML Syringe IV (17:53)
[2022-09-26] MEDS: Lactated Ringers 1,000 ML 100 ML IV (17:53)
[2022-09-26] MEDS: Albuterol 2.5 MG/3 ML VIAL.NEB. INHALATION ×2 (17:57→22:32)
[2022-09-26] MEDS: Acetaminophen 325 MG Tablet 650 MG PO ×2 (18:25→22:25)
[2022-09-26] MEDS: MELATONIN 3 MG TABLET PO (22:21)
[2022-09-27] VITALS (20 sets, daily range): BP systolic 139–159; BP diastolic 79–86; PULSE 69–96; RESP 18–20; TEMP 37.1–37.3; O2SAT 87–95
[2022-09-27 05:24] LABS: Absolute Lymphocyte Count 1.62 X10^3/uL (0.83-4.51); Absolute Neutrophil Count 14.5 X10^3/uL (2.0-7.7); Basophil# 0.06 X10^3/uL; Basophil% 0.4 % (0-1); Eosinophil# 0.01 X10^3/uL; Eosinophils% 0.1 % (0-5); Hematocrit 29.2 % (37-47); Hemoglobin 10.2 g/dL (12.0-15.0); Lymphocyte # 1.62 X10^3/ul (0.83-4.51); Lymphocyte % 9.6 % (19-41); Mean Corp Hgb Conc 34.9 g/dL (32-36); Mean Corpuscular Volume 91.5 fL (81-99); Mean Platelet Vol. 12.1 fl (6.2-12.0); Monocyte# 0.59 X10^3/uL; Monocyte% 3.5 % (0-10); NRBC Flagged by Analyzer 0 % (0-5); Neutrophil # 14.48 X10^3/uL (2.7-7.7); Neutrophil % 85.9 % (47-70); POSITIVE COUNT YES; POSITIVE MORPHOLOGY YES; Platelet Count 41 K/mm3 (150-450); RBC Distribution Width CV 14.6 % (11.6-14.6); RBC Distribution Width SD 49.7 fl (35.1-43.9); Red Blood Count 3.19 M/mm3 (4.2-5.4); White Blood Count 16.9 K/mm3 (4.4-11.0)
[2022-09-27 05:26] LABS: Differential Indicated SCAN CRITERIA MET
[2022-09-27 05:38] LABS: Anion Gap 6 (5-15); BUN 27 mg/dL (7-18); BUN/Creat Ratio 35.6 RATIO (10-20); Chloride 116 mmol/L (98-107); Creatinine, Serum 0.76 mg/dL (0.55-1.02); EST Glomerular Filtration Rate 81 mL/min (>60); Est Glom Filt Rate - Afr Amer 98 mL/min (>60); Estimated Creatinine Clearance 39.21 ml/min; Glucose 85 mg/dL (74-106); Potassium 3.1 mmol/L (3.5-5.1); Sodium Level 146 mmol/L (136-145)
[2022-09-27 06:10] LABS: Differential Comment SCANNED; Platelet Estimate MKD DEC (ADEQ)
[2022-09-27] MEDS: Lactated Ringers 1,000 ML 100 ML IV (06:28)
[2022-09-27] MEDS: Potassium Chloride Oral Tablet 20 MEQ 60 MEQ PO (08:01)
[2022-09-27 08:17] LABS: Phosphorus 2.3 mg/dL (2.5-4.9)
[2022-09-27] MEDS: Albuterol 2.5 MG/3 ML VIAL.NEB. INHALATION ×4 (08:44→23:17)
[2022-09-27] MEDS: Metoprolol(XL)Succ 50 MG Tablet PO (09:32)
[2022-09-27 09:36] LABS: Pathologist Review Reviewed
[2022-09-27] MEDS: Furosemide 20 MG/2 ML VIAL IV ×2 (11:01→15:09)
[2022-09-27] MEDS: Acetaminophen 325 MG Tablet 650 MG PO ×2 (11:18→15:22)
[2022-09-27 13:04] LABS: Pathologist Review Reviewed
[2022-09-27] MEDS: 0.9% Saline Lock 10 ML Syringe IV ×2 (15:09→23:08)
--- NOTE | 2022-09-27 15:33 | PCM.PN.HOSP ---
Subjective Subjective Doing well, no issues overnight. She is maintaining her oxygen saturations on room air at rest however she does see that 2 L of oxygen with ambulation this is related to her volume overload as she is positive about 10 L Objective Data Objective Data Vital Signs: Vital Signs Temp Pulse Resp BP Pulse Ox O2 Del Method O2 Flow Rate 99.1 F 79 18 148/85 H 95 Nasal Cannula 2 09/27/22 15:16 09/27/22 15:16 09/27/22 15:16 09/27/22 15:16 09/27/22 15:16 09/27/22 15:16 09/27/22 15:16 FiO2 92 09/27/22 07:52 Oxygen Flow Rate (L/min) [ 2 AMBULATING with Oxygen #1] Oxygen Flow Rate (L/min) 2 Oxygen Delivery Method Nasal Cannula Weight: 174 lb 2.643 oz Body Mass Index (BMI) 30.4 Intake & Output: Intake and Output for Last 24 Hours 09/26/22 09/27/22 09/28/22 03:59 03:59 03:59 Intake Total 4115 / 4115 3985.83 / 3985.83 1578.34 / 1578.34 Output Total 2000 / 2400 400 / 400 Balance 2115 / 1715 3585.83 / 3585.83 1578.34 / 1578.34 Lab / Micro Data Result Diagrams: 09/27/22 04:19 09/27/22 04:19 Labs: Laboratory Results - last 24 hr 09/26/22 03:28: Diff Path Review Reviewed 09/27/22 04:19: WBC 16.9 H, RBC 3.19 L, Hgb 10.2 L, Hct 29.2 L, MCV 91.5, MCH 32.0, MCHC 34.9 D, RDW Std Deviation 49.7 H, RDW Coeff of Andressa 14.6, Plt Count 41 L*, MPV 12.1 H, Immature Gran % (Auto) 0.500, Neut % (Auto) 85.9 H, Lymph % (Auto) 9.6 L, [place] % (Auto) 3.5, Eos % (Auto) 0.1, Baso % (Auto) 0.4, Absolute Neuts (auto) 14.5 H, Absolute Lymphs (auto) 1.62, Nucleated RBC % 0, Differential Comment SCANNED, Diff Path Review Reviewed, Platelet Estimate MKD 09/27/22 04:19: Sodium 146 H, Potassium 3.1 L, Chloride 116 H, Carbon Dioxide 24.0, Anion Gap 6, BUN 27 H, Creatinine 0.76, Estim Creat Clear Calc 39.21, Est GFR (MDRD) Af Amer 98, Est GFR (MDRD) Non-Af 81, BUN/Creatinine Ratio 35.6 H, Glucose 85, Calcium 8.0 L 09/27/22 04:19: Phosphorus 2.3 L, Magnesium 2.0 Micro: Microbiology 09/24/22 16:05 Urine, Midstream Urine Culture - Final Escherichia coli 09/24/22 12:17 Urine, Clean Catch Urine Culture - Final Escherichia coli 09/24/22 11:35 Interface Orders Rapid RSV (DFA) - Final 09/24/22 11:35 Nasal Secretion SARS-CoV-2 & FLU Antigen (Rapid) - Final Physical Exam Narrative General: Alert, Oriented x3, Cooperative, No apparent distress HEENT: Atraumatic, PERRLA, EOMI, Normocephalic Oral: Moist Mucosa Neck: Supple, No JVD Lungs: Diminished, Normal air movement, No rhonchi, No wheeze, No rales Cardiovascular: Regular rate, Regular Rhythm, Normal S1, Normal S2, No murmurs Abdomen: Soft, Non Tender, Non-Distended, No Hepato-splenomegaly Extremities: No edema, Capillary Refill Less than 3 Seconds Skin: No rashes, No breakdown Musculoskeletal: No Tenderness to Palpation of Joints or Extremities Neurological: Cranial nerves II-XII grossly intact, Motor Exam 5/5 strength throughout, Sensory exam intact to light touch and pain Psych/Mental Status: Normal Affect, Appropriate Assessment & Plan Assessment/Plan (1) Acute UTI: PLAN: Plan 1. Sepsis secondary to complicated UTI and bacteremia with pansensitive /RAYMUNDO/acute on chronic thrombocytopenia ? She is status post a cystoscopy with a right ureteral stent placement on 09/24/2022 ? Continue with broad-spectrum antibiotics, cultures with a pansensitive E. coli ? Is not requiring any pressor support and her RAYMUNDO is resolved, she is volume overloaded given the amount of fluid that she has received and weight corroborates this as she is about 20 pounds heavier than when she came in. We will start her on IV Lasix. She is satting on room air at rest but does need oxygen with ambulation ? At this time thrombocytopenia is likely reactive to infection, will hold off on any chemical anticoagulation and continue with SCDs 2. HTN ? Blood pressures are stable ? Can resume her home blood pressure medications 3. GERD ? Stable ? Continue with PPI DVT: SCDs Charges/Coding Visit Charges Inpatient E&M: 58792 Subs Hosp L2
[2022-09-27] MEDS: Sodium Chloride 0.65% 1 SPRAY SPRAY.BTL 2 SPRAY NASAL (16:56)
--- NOTE | 2022-09-27 17:17 | PCM.PROGNOTE ---
Subjective Subjective She is feeling little better. Still feeling short of breath and swollen. Objective Data Objective Data Vital Signs: Vital Signs Temp Pulse Resp BP Pulse Ox O2 Del Method O2 Flow Rate 99.1 F 87 20 H 148/85 H 95 Nasal Cannula 2 09/27/22 15:16 09/27/22 16:13 09/27/22 16:13 09/27/22 15:16 09/27/22 15:16 09/27/22 15:16 09/27/22 15:16 FiO2 92 09/27/22 07:52 Oxygen Flow Rate (L/min) [ 2 AMBULATING with Oxygen #1] Oxygen Flow Rate (L/min) 2 Oxygen Delivery Method Nasal Cannula Weight: 79 kg Body Mass Index (BMI) 30.4 Intake & Output: Intake and Output for Last 24 Hours 09/25/22 09/26/22 09/27/22 23:59 23:59 23:59 Intake Total 3065 / 3065 4985.83 / 4985.83 1678.34 / 1678.34 Output Total 1999 / 1999 400 / 400 Balance 1065 / 1065 4585.83 / 4585.83 1678.34 / 1678.34 Lab / Micro Data Result Diagrams: 09/28/22 04:21 09/28/22 04:21 Labs: Laboratory Results - last 24 hr 09/26/22 03:28: Diff Path Review Reviewed 09/27/22 04:19: WBC 16.9 H, RBC 3.19 L, Hgb 10.2 L, Hct 29.2 L, MCV 91.5, MCH 32.0, MCHC 34.9 D, RDW Std Deviation 49.7 H, RDW Coeff of Andressa 14.6, Plt Count 41 L*, MPV 12.1 H, Immature Gran % (Auto) 0.500, Neut % (Auto) 85.9 H, Lymph % (Auto) 9.6 L, [place] % (Auto) 3.5, Eos % (Auto) 0.1, Baso % (Auto) 0.4, Absolute Neuts (auto) 14.5 H, Absolute Lymphs (auto) 1.62, Nucleated RBC % 0, Differential Comment SCANNED, Diff Path Review Reviewed, Platelet Estimate MKD DEC 09/27/22 04:19: Sodium 146 H, Potassium 3.1 L, Chloride 116 H, Carbon Dioxide 24.0, Anion Gap 6, BUN 27 H, Creatinine 0.76, Estim Creat Clear Calc 39.21, Est GFR (MDRD) Af Amer 98, Est GFR (MDRD) Non-Af 81, BUN/Creatinine Ratio 35.6 H, Glucose 85, Calcium 8.0 L 09/27/22 04:19: Phosphorus 2.3 L, Magnesium 2.0 Micro: Microbiology 09/24/22 16:05 Urine, Midstream Urine Culture - Final Escherichia coli 09/24/22 12:17 Urine, Clean Catch Urine Culture - Final Escherichia coli 09/24/22 11:35 Interface Orders Rapid RSV (DFA) - Final 09/24/22 11:35 Nasal Secretion SARS-CoV-2 & FLU Antigen (Rapid) - Final Physical Exam Const alert, oriented x3 and no apparent distress HEENT normocephalic and head/scalp atraumatic Neck supple General: trachea midline Chest inspection of chest normal Chest: symmetrical chest wall rise Resp normal respiratory effort and no retractions Resp Narrative: on O2 Effort and Inspection: able to speak in complete sentences and symmetric chest movement Cardio regular rate GI soft to palpation, non-tender and non-distended no CVA tenderness Narrative: PureWick catheter with clear pale yellow urine Extremity Extremity Narrative: diffusely edematous Skin no rashes or lesions noted Neuro oriented x3, CN's II-XII intact bilaterally and moves all extremities Psych mental status grossly normal and thought process normal Assessment & Plan Assessment/Plan (1) Ureterolithiasis: (2) Sepsis: (3) Acute UTI: (4) Acute renal failure: PLAN: Plan Continue supportive care Cultures are back all showing E. coli pansensitive Continue diuresis per medicine Plan for further surgical intervention in a few weeks as an outpatient
--- NOTE | 2022-09-27 19:55 | CPS ---
PATIENT REQUESTED PRN TREATMENT.
--- NOTE | 2022-09-27 23:58 | CPS ---
PATIENT REQUESTED PRN TREATMENT PRIOR TO BEDTIME.
[2022-09-28] VITALS (15 sets, daily range): BP systolic 130–157; BP diastolic 64–80; PULSE 71–80; RESP 16–18; TEMP 36.8–37.7; O2SAT 88–97
[2022-09-28] MEDS: MELATONIN 3 MG TABLET PO ×2 (00:21→20:58)
[2022-09-28] MEDS: Acetaminophen 325 MG Tablet 650 MG PO ×2 (00:21→23:12)
[2022-09-28 04:44] LABS: Absolute Lymphocyte Count 1.64 X10^3/uL (0.83-4.51); Absolute Neutrophil Count 8.8 X10^3/uL (2.0-7.7); Basophil# 0.04 X10^3/uL; Basophil% 0.3 % (0-1); Eosinophil# 0.07 X10^3/uL; Eosinophils% 0.6 % (0-5); Hematocrit 29.6 % (37-47); Hemoglobin 10.1 g/dL (12.0-15.0); Lymphocyte # 1.64 X10^3/ul (0.83-4.51); Lymphocyte % 13.6 % (19-41); Mean Corp Hgb Conc 34.1 g/dL (32-36); Mean Corpuscular Hgb 31.3 pg (27.0-32.0); Mean Corpuscular Volume 91.6 fL (81-99); Mean Platelet Vol. 12.7 fl (6.2-12.0); Monocyte# 1.18 X10^3/uL; Monocyte% 9.8 % (0-10); NRBC Flagged by Analyzer 0.4 % (0-5); Neutrophil # 8.81 X10^3/uL (2.7-7.7); Neutrophil % 72.7 % (47-70); POSITIVE COUNT YES; RBC Distribution Width CV 14.1 % (11.6-14.6); RBC Distribution Width SD 47.6 fl (35.1-43.9); Red Blood Count 3.23 M/mm3 (4.2-5.4); White Blood Count 12.1 K/mm3 (4.4-11.0)
[2022-09-28 05:03] LABS: Anion Gap 5 (5-15); BUN 14 mg/dL (7-18); Calcium,Total 7.8 mg/dL (8.5-10.1); Chloride 110 mmol/L (98-107); Creatinine, Serum 0.64 mg/dL (0.55-1.02); EST Glomerular Filtration Rate 99 mL/min (>60); Est Glom Filt Rate - Afr Amer 120 mL/min (>60); Estimated Creatinine Clearance 39.21 ml/min; Glucose 99 mg/dL (74-106); Sodium Level 143 mmol/L (136-145)
[2022-09-28 05:07] LABS: Differential Indicated SCAN CRITERIA MET; Platelet Count 38 K/mm3 (150-450)
[2022-09-28 06:35] LABS: Differential Comment SCANNED; Platelet Estimate MKD DEC (ADEQ)
[2022-09-28] MEDS: Potassium Chloride Oral Tablet 20 MEQ 60 MEQ PO (07:43)
[2022-09-28] MEDS: Furosemide 40 MG/4 ML Vial IV ×2 (07:43→14:45)
[2022-09-28] MEDS: 0.9% Saline Lock 10 ML Syringe IV ×2 (07:43→14:46)
[2022-09-28] MEDS: Cephalexin 250 MG Capsule PO (07:52)
[2022-09-28] MEDS: Metoprolol(XL)Succ 50 MG Tablet PO (07:53)
--- NOTE | 2022-09-28 10:37 | PN.URO_ITS ---
Subjective Subjective Did ok overnight. Having bloody nose this morning. Thinks she wet the bed. Otherwise no new concerns. Upon evaluation, her Purewick catheter canister is full. Objective Data Objective Data Vital Signs: Vital Signs Temp Pulse Resp BP Pulse Ox O2 Del Method O2 Flow Rate 98.2 F 80 18 157/79 H 95 Nasal Cannula 2 09/28/22 07:40 09/28/22 07:53 09/28/22 07:40 09/28/22 07:53 09/28/22 07:40 09/28/22 07:40 09/28/22 07:40 FiO2 92 09/27/22 07:52 Oxygen Flow Rate (L/min) [ 2 AMBULATING with Oxygen #1] Oxygen Flow Rate (L/min) 2 Oxygen Delivery Method Nasal Cannula Weight: 76.7 kg Body Mass Index (BMI) 30.4 Intake & Output: Intake and Output for Last 24 Hours 09/26/22 09/27/22 09/28/22 23:59 23:59 23:59 Intake Total 4985.83 / 4985.83 2078.34 / 2078.34 182.08 / 182.08 Output Total 400 / 400 900 / 1650 1300 / 1300 Balance 4585.83 / 4585.83 1178.34 / 428.34 -1117.92 / -1117.92 Lab / Micro Data Result Diagrams: 09/28/22 04:21 09/28/22 04:21 Labs: Laboratory Results - last 24 hr 09/27/22 04:19: Diff Path Review Reviewed 09/28/22 04:21: WBC 12.1 H, RBC 3.23 L, Hgb 10.1 L, Hct 29.6 L, MCV 91.6, MCH 31.3, MCHC 34.1, RDW Std Deviation 47.6 H, RDW Coeff of Andressa 14.1, Plt Count 38 L*, MPV 12.7 H, Immature Gran % (Auto) 3.000 H, Neut % (Auto) 72.7 H, Lymph % (Auto) 13.6 L, [place] % (Auto) 9.8, Eos % (Auto) 0.6, Baso % (Auto) 0.3, Absolute Neuts (auto) 8.8 H, Absolute Lymphs (auto) 1.64, Nucleated RBC % 0.4, Dif ferential Comment SCANNED, Diff Path Review February foll, Platelet Estimate MKD 09/28/22 04:21: Sodium 143, Potassium 3.0 L, Chloride 110 H, Carbon Dioxide 28.0, Anion Gap 5, BUN 14, Creatinine 0.64, Estim Creat Clear Calc 39.21, Est GFR (MDRD) Af Amer 120, Est GFR (MDRD) Non-Af 99, BUN/Creatinine Ratio 22.0 H, Glucose 99, Calcium 7.8 L Micro: Microbiology 09/24/22 16:05 Urine, Midstream Urine Culture - Final Escherichia coli 09/24/22 12:17 Urine, Clean Catch Urine Culture - Final Escherichia coli 09/24/22 11:35 Interface Orders Rapid RSV (DFA) - Final 09/24/22 11:35 Nasal Secretion SARS-CoV-2 & FLU Antigen (Rapid) - Final Physical Exam Const alert and oriented x3 HEENT HEENT Narrative: recent bloody nose, no active dripping at present, tissues at bedside Neck supple General: trachea midline Chest inspection of chest normal Chest: symmetrical chest wall rise Resp normal respiratory effort, normal air movement and no retractions Effort and Inspection: able to speak in complete sentences Cardio regular rate GI soft to palpation, non-tender and non-distended Narrative: urine clear in canister Extremity normal to inspection Extremity Narrative: SCD's in place Skin no rashes or lesions noted, no wounds, no jaundice, no petechiae and no mottling Neuro oriented x3, CN's II-XII intact bilaterally and moves all extremities Assessment & Plan Assessment/Plan (1) Ureterolithiasis: (2) Acute UTI: PLAN: Plan continue supportive care plan for outpatient stone management
[2022-09-28] MEDS: Cephalexin 500 MG Capsule PO ×3 (11:12→23:09)
--- NOTE | 2022-09-28 14:50 | CASEMGMT ---
Per Apoorva WALLACE, pt still needs 2liters of oxygen with exertion and pt has no qualifying dx for home oxygen at this time. Dr. Garcia aware and states pt will likely be kept overnight again. CM to follow. Loi WALLACE CM
--- NOTE | 2022-09-28 16:03 | PCM.PN.HOSP ---
Subjective Subjective Doing well, breathing better and her swelling has improved. Objective Data Objective Data Vital Signs: Vital Signs Temp Pulse Resp BP Pulse Ox O2 Del Method O2 Flow Rate 98.6 F 74 18 147/79 H 95 Nasal Cannula 2 09/28/22 11:10 09/28/22 11:10 09/28/22 11:10 09/28/22 11:10 09/28/22 11:10 09/28/22 11:10 09/28/22 11:10 FiO2 92 09/27/22 07:52 Oxygen Flow Rate (L/min) [ 2 AMBULATING with Oxygen #1] Oxygen Flow Rate (L/min) 2 Oxygen Delivery Method Nasal Cannula Weight: 169 lb 1.513 oz Body Mass Index (BMI) 30.4 Intake & Output: Intake and Output for Last 24 Hours 09/27/22 09/28/22 09/29/22 03:59 03:59 03:59 Intake Total 3985.83 / 3985.83 2138.34 / 2138.34 432.08 / 432.08 Output Total 400 / 400 1650 / 1650 1999 / 1999 Balance 3585.83 / 3585.83 488.34 / 488.34 -1567.92 / -1567.92 Lab / Micro Data Result Diagrams: 09/28/22 04:21 09/28/22 04:21 Labs: Laboratory Results - last 24 hr 09/28/22 04:21: WBC 12.1 H, RBC 3.23 L, Hgb 10.1 L, Hct 29.6 L, MCV 91.6, MCH 31.3, MCHC 34.1, RDW Std Deviation 47.6 H, RDW Coeff of Andressa 14.1, Plt Count 38 L*, MPV 12.7 H, Immature Gran % (Auto) 3.000 H, Neut % (Auto) 72.7 H, Lymph % (Auto) 13.6 L, [place] % (Auto) 9.8, Eos % (Auto) 0.6, Baso % (Auto) 0.3, Absolute Neuts (auto) 8.8 H, Absolute Lymphs (auto) 1.64, Nucleated RBC % 0.4, Differential Comment SCANNED, Diff Path Review February, Platelet Estimate MKD 09/28/22 04:21: Sodium 143, Potassium 3.0 L, Chloride 110 H, Carbon Dioxide 28.0, Anion Gap 5, BUN 14, Creatinine 0.64, Estim Creat Clear Calc 39.21, Est GFR (MDRD) Af Amer 120, Est GFR (MDRD) Non-Af 99, BUN/Creatinine Ratio 22.0 H, Glucose 99, Calcium 7.8 L Micro: Microbiology 09/24/22 16:05 Urine, Midstream Urine Culture - Final Escherichia coli 09/24/22 12:17 Urine, Clean Catch Urine Culture - Final Escherichia coli 09/24/22 11:35 Interface Orders Rapid RSV (DFA) - Final 09/24/22 11:35 Nasal Secretion SARS-CoV-2 & FLU Antigen (Rapid) - Final Physical Exam Narrative General: Alert, Oriented x3, Cooperative, No apparent distress HEENT: Atraumatic, PERRLA, EOMI, Normocephalic Oral: Moist Mucosa Neck: Supple, No JVD Lungs: Diminished, Normal air movement, No rhonchi, No wheeze, No rales Cardiovascular: Regular rate, Regular Rhythm, Normal S1, Normal S2, No murmurs Abdomen: Soft, Non Tender, Non-Distended, No Hepato-splenomegaly Extremities: Trace edema, Capillary Refill Less than 3 Seconds Skin: No rashes, No breakdown Musculoskeletal: No Tenderness to Palpation of Joints or Extremities Neurological: Cranial nerves II-XII grossly intact, Motor Exam 5/5 strength throughout, Sensory exam intact to light touch and pain Psych/Mental Status: Normal Affect, Appropriate Assessment & Plan Assessment/Plan (1) Acute UTI: PLAN: Plan 1. Sepsis secondary to complicated UTI and bacteremia with pansensitive E. coli/RAYMUNDO/acute on chronic thrombocytopenia ? She is status post a cystoscopy with a right ureteral stent placement on 09/24/2022 ? We will transition to p.o. Keflex, cultures with a pansensitive E. coli ? Is not requiring any pressor support and her RAYMUNDO is resolved, she is volume overloaded given the amount of fluid that she has received and weight corroborates this as she is about 20 pounds heavier than when she came in. We will start her on IV Lasix. ? At this time thrombocytopenia is likely reactive to infection, will hold off on any chemical anticoagulation and continue with SCDs 2. HTN ? Blood pressures are stable ? Can resume her home blood pressure medications 3. GERD ? Stable ? Continue with PPI DVT: SCDs Charges/Coding Visit Charges Inpatient E&M: 88364 Subs Hosp L2
[2022-09-28] MEDS: Acyclovir 200 MG Capsule 400 MG PO ×2 (16:42→20:51)
--- NOTE | 2022-09-28 18:20 | NURSING ---
Patient was weaned to RA this shift; spot checked her at 1815 prior to her going on walk with , pulse ox was 87-89% on RA. Ecnouraged patient to get up and ambulate with 2L NC and to use IS therapy.
[2022-09-28] MEDS: Albuterol 2.5 MG/3 ML VIAL.NEB. INHALATION (21:01)
[2022-09-29] VITALS (12 sets, daily range): BP systolic 141–152; BP diastolic 71–79; PULSE 67–90; RESP 15–20; TEMP 36.9–37.3; O2SAT 91–95
[2022-09-29] MEDS: Acyclovir 200 MG Capsule 400 MG PO ×2 (06:04→14:34)
[2022-09-29] MEDS: Cephalexin 500 MG Capsule PO ×2 (06:04→11:26)
[2022-09-29 07:15] LABS: Absolute Neutrophil Count 9.7 X10^3/uL (2.0-7.7); Basophil# 0.06 X10^3/uL; Basophil% 0.4 % (0-1); Eosinophil# 0.14 X10^3/uL; Hematocrit 32.9 % (37-47); Hemoglobin 11.1 g/dL (12.0-15.0); Lymphocyte % 13.4 % (19-41); Mean Corp Hgb Conc 33.7 g/dL (32-36); Mean Corpuscular Hgb 31.2 pg (27.0-32.0); Mean Corpuscular Volume 92.4 fL (81-99); Mean Platelet Vol. 12.5 fl (6.2-12.0); Monocyte# 1.35 X10^3/uL; Monocyte% 10.1 % (0-10); NRBC Flagged by Analyzer 0 % (0-5); Neutrophil # 9.69 X10^3/uL (2.7-7.7); Neutrophil % 72.3 % (47-70); POSITIVE COUNT YES; POSITIVE MORPHOLOGY YES; Platelet Count 52 K/mm3 (150-450); RBC Distribution Width CV 13.8 % (11.6-14.6); RBC Distribution Width SD 47.2 fl (35.1-43.9); Red Blood Count 3.56 M/mm3 (4.2-5.4); White Blood Count 13.4 K/mm3 (4.4-11.0)
[2022-09-29 07:18] LABS: Differential Indicated SCAN CRITERIA MET
[2022-09-29] MEDS: Albuterol 2.5 MG/3 ML VIAL.NEB. INHALATION ×2 (07:24→12:47)
[2022-09-29 07:41] LABS: Anion Gap 5 (5-15); BUN 18 mg/dL (7-18); BUN/Creat Ratio 28.6 RATIO (10-20); Calcium,Total 8.1 mg/dL (8.5-10.1); Chloride 103 mmol/L (98-107); Creatinine, Serum 0.63 mg/dL (0.55-1.02); EST Glomerular Filtration Rate 100 mL/min (>60); Est Glom Filt Rate - Afr Amer 121 mL/min (>60); Estimated Creatinine Clearance 39.21 ml/min; Glucose 83 mg/dL (74-106); Potassium 3.6 mmol/L (3.5-5.1); Sodium Level 137 mmol/L (136-145)
[2022-09-29] MEDS: 0.9% Saline Lock 10 ML Syringe IV ×2 (08:09→14:35)
[2022-09-29] MEDS: Furosemide 40 MG/4 ML Vial IV ×2 (08:09→14:34)
[2022-09-29 08:13] LABS: Platelet Estimate MOD DEC (ADEQ); Reactive Lymphocyte RARE
[2022-09-29] MEDS: Metoprolol(XL)Succ 50 MG Tablet PO (09:23)
[2022-09-29] MEDS: Acetaminophen 325 MG Tablet 650 MG PO (09:23)
[2022-09-29 09:49] LABS: Pathologist Review Reviewed
--- NOTE | 2022-09-29 10:03 | PN.HOSP_ITS ---
Subjective Subjective Doing well, no issues overnight. She needs to start getting up and ambulating she seems to be very nervous and hesitant despite assurances that she is doing very well. Objective Data Objective Data Vital Signs: Vital Signs Temp Pulse Resp BP Pulse Ox O2 Del Method O2 Flow Rate 98.8 F 82 15 146/71 H 95 Nasal Cannula 1 09/29/22 09:18 09/29/22 09:23 09/29/22 09:18 09/29/22 09:23 09/29/22 09:18 09/29/22 09:18 09/29/22 09:18 FiO2 92 09/27/22 07:52 Oxygen Flow Rate (L/min) [At 2 REST with Oxygen] Oxygen Flow Rate (L/min) [ 2 AMBULATING with Oxygen #2] Oxygen Flow Rate (L/min) [ 1 AMBULATING with Oxygen #1] Oxygen Flow Rate (L/min) 1 Oxygen Delivery Method Nasal Cannula Weight: 163 lb 9.328 oz Body Mass Index (BMI) 30.4 Intake & Output: Intake and Output for Last 24 Hours 09/28/22 09/29/22 09/30/22 03:59 03:59 03:59 Intake Total 2138.34 / 2138.34 792.08 / 792.08 Output Total 1650 / 1650 3000 / 3000 Balance 488.34 / 488.34 -2207.92 / -2207.92 Lab / Micro Data Result Diagrams: 09/29/22 05:55 09/29/22 05:55 Labs: Laboratory Results - last 24 hr 09/28/22 04:21: Diff Path Review Reviewed 09/29/22 05:55: Sodium 137, Potassium 3.6, Chloride 103, Carbon Dioxide 29.0, Anion Gap 5, BUN 18, Creatinine 0.63, Estim Creat Clear Calc 39.21, Est GFR (MDRD) Af Amer 121, Est GFR (MDRD) Non-Af 100, BUN/Creatinine Ratio 28.6 H, Glucose 83, Calcium 8.1 L 09/29/22 05:55: WBC 13.4 H, RBC 3.56 L, Hgb 11.1 L, Hct 32.9 L, MCV 92.4, MCH 31.2, MCHC 33.7, RDW Std Deviation 47.2 H, RDW Coeff of Andressa 13.8, Plt Count 52 L , MPV 12.5 H, Immature Gran % (Auto) 2.800 H, Neut % (Auto) 72.3 H, Lymph % (Auto) 13.4 L, [place] % (Auto) 10.1 H, Eos % (Auto) 1.0, Baso % (Auto) 0.4, Absolu te Neuts (auto) 9.7 H, Absolute Lymphs (auto) 1.80, Nucleated RBC % 0, Reactive Lymphocytes RARE, Platelet Estimate MOD DEC Micro: Microbiology 09/24/22 16:05 Urine, Midstream Urine Culture - Final Escherichia coli 09/24/22 12:17 Urine, Clean Catch Urine Culture - Final Escherichia coli 09/24/22 11:35 Interface Orders Rapid RSV (DFA) - Final 09/24/22 11:35 Nasal Secretion SARS-CoV-2 & FLU Antigen (Rapid) - Final Physical Exam Narrative General: Alert, Oriented x3, Cooperative, No apparent distress HEENT: Atraumatic, PERRLA, EOMI, Normocephalic Oral: Moist Mucosa Neck: Supple, No JVD Lungs: Diminished, Normal air movement, No rhonchi, No wheeze, No rales Cardiovascular: Regular rate, Regular Rhythm, Normal S1, Normal S2, No murmurs Abdomen: Soft, Non Tender, Non-Distended, No Hepato-splenomegaly Extremities: No edema, Capillary Refill Less than 3 Seconds Skin: No rashes, No breakdown Musculoskeletal: No Tenderness to Palpation of Joints or Extremities Neurological: Cranial nerves II-XII grossly intact, Motor Exam 5/5 strength throughout, Sensory exam intact to light touch and pain Psych/Mental Status: Normal Affect, Appropriate Assessment & Plan Assessment/Plan (1) Acute UTI: PLAN: Plan 1. Sepsis secondary to complicated UTI and bacteremia with pansensitive E. coli/RAYMUNDO/acute on chronic thrombocytopenia ? She is status post a cystoscopy with a right ureteral stent placement on 09/24/2022 ? We will transition to p.o. Keflex, cultures with a pansensitive E. coli ? Is not requiring any pressor support and her RAYMUNDO is resolved, she is volume overloaded given the amount of fluid that she has received and weight corroborates this as she is about 20 pounds heavier than when she came in. We will start her on IV Lasix. ? At this time thrombocytopenia is likely reactive to infection, will hold off on any chemical anticoagulation and continue with SCDs 2. HTN ? Blood pressures are stable ? Can resume her home blood pressure medications 3. GERD ? Stable ? Continue with PPI DVT: SCDs Charges/Coding Visit Charges Inpatient E&M: 83784 Subs Hosp L2
--- NOTE | 2022-09-29 13:26 | CASEMGMT ---
Per Josephine RN, pt does not qualify for home oxygen. Loi WALLACE CM
--- NOTE | 2022-09-29 14:37 | DCINST_ITS ---
Discharge Instructions Diet Discharge Diet: Low fat / Low cholesterol Activity Discharge Activity: Return to Normal Activity Dressing / Incision Call your doctor if you observe: Fever of 101 or Higher, Shortness of breath, Dizziness, Fainting spells, Swelling in the ankles, Chest pain and Increased palpitations (irregular heartbeat) Follow Up Care Test Results: Test results from this visit will be discussed in further detail at your follow- up appointment, if applicable. Discharge Plan Admission Admit Date/Time: 09/24/22 14:30 Attending Provider: Gee Garcia Primary Care Provider: Meng Haas Consulting Providers: Jose Soliman ; Sandra Santa Discharge Orders/Prescriptions Prescriptions: New cephalexin 500 mg Capsule 500 mg PO Q6 Qty: 40 0RF valacyclovir [Valtrex] 500 mg tablet 1,000 mg PO DAILY 7 Days Qty: 14 0RF Continued pantoprazole 40 mg tablet,delayed release (DR/EC) 40 mg PO DAILY Label Comments: take 1 tablet by mouth once daily Alive Women's 50 Plus Gummy 120 mcg-150 mcg -37.5 mg tablet,chewable 1 tab PO DAILY elderberry fruit 350 mg capsule 350 mg PO DAILY losartan 100 mg tablet 100 mg PO DAILY Qty: 90 3RF hydrochlorothiazide 25 mg tablet 25 mg PO DAILY Qty: 90 3RF zinc gluconate 50 mg tablet 50 mg PO DAILY ascorbic acid (vitamin C) 1,000 mg capsule 2 g PO DAILY cholecalciferol (vitamin D3) 125 mcg (5,000 unit) capsule 250 mcg PO DAILY acetaminophen [Arthritis Pain Relief (acetam)] 650 mg tablet extended release 650 mg PO Q12H glycerin (bulk) 100 % liquid See Rx Instructions miscellaneous 2XW Label Comments: APPLY 1 GRAM (4 CLICKS)rINTRAVAGINALLY TWICE PERsWEEK Rx Instructions: 1 gram intravaginally as directed twice a week; Versatile Rich Cream 1 applic topical 2XW Label Comments: APPLY 1 GRAM (4 CLICKS)rINTRAVAGINALLY TWICE PERsWEEK metoprolol succinate 50 mg tablet extended release 24 hr 50 mg PO DAILY Label Comments: take 1 tablet by mouth every evening oxycodone 10 mg tablet 10 mg PO Q6H PRN (Reason: pain) 5 Days Qty: 20 0RF ketorolac 10 mg tablet 10 mg PO Q8H PRN (Reason: pain) 5 Days Qty: 15 0RF promethazine 25 mg tablet 25 mg PO Q6H PRN PRN (Reason: Nausea) Qty: 10 0RF calcium carbonate-vitamin D3 500 mg-3.125 mcg (125 unit) Tablet 1 tab PO DAILY Referrals / Follow Up: Sandra Santa MD [Med Staff - Active Staff] - Within 2 Weeks Meng Haas DO [Primary Care Provider] - Within 1 Week Disposition Disposition (needs filled in before D/C Order can be placed): Home, Self Care
--- NOTE | 2022-09-29 14:55 | PCM.DC.SUM ---
Providers Date of Admission: 09/24/22 Primary Care Physician: Dr. Meng Haas, DO Consultations 09/24/22 16:22 Consult: Facility Rehab Director / Pulmonary Medicine Routine Consulting Provider: Jose Soliman Reason for Consult: Septic shock, UTI, Ureterolithiasis, ?Diverticulitis, RAYMUNDO EMERGENT Consult: No Notified: Yes Date Notified: 09/24/22 Time Notified: 14:34 Method of Notification: Text Consult: Urology Routine Consulting Provider: Sandra Santa Reason for Consult: Acute ureterolithiasis, right hydroureteronephrosis, UTI EMERGENT Consult: No Notified: Yes Date Notified: 09/24/22 Time Notified: 14:34 Method of Notification: called Reason For Visit: SEPTIC SHOCK, UTI, URETEROLITHIASIS, Diagnosis Discharge Diagnosis (1) Acute UTI: Status: Acute Code(s): N39.0 - Urinary tract infection, site not specified Plan 1. Sepsis secondary to complicated UTI and bacteremia with pansensitive E. coli/RAYMUNDO/acute on chronic thrombocytopenia ? She is status post a cystoscopy with a right ureteral stent placement on 09/24/2022 ? We will transition to p.o. Keflex, cultures with a pansensitive E. coli ? Is not requiring any pressor support and her RAYMUNDO is resolved, she is volume overloaded given the amount of fluid that she has received and weight corroborates this as she is about 20 pounds heavier than when she came in. We will start her on IV Lasix. ? At this time thrombocytopenia is likely reactive to infection, will hold off on any chemical anticoagulation and continue with SCDs 2. HTN ? Blood pressures are stable ? Can resume her home blood pressure medications 3. GERD ? Stable ? Continue with PPI DVT: SCDs Medications at Discharge Home Medications metoprolol succinate 50 mg tablet,extended release 24 hr 50 mg PO DAILY blood pressure 08/05/22 acetaminophen 650 mg tablet,extended release (Arthritis Pain Relief (acetaminophen) ER) 650 mg PO Q12H 09/04/22 ascorbic acid (vitamin C) 1,000 mg capsule 2 g PO DAILY vitamin 09/04/22 cholecalciferol (vitamin D3) 125 mcg (5,000 unit) capsule 250 mcg PO DAILY vitamin 09/04/22 cream base no.175 (bulk) (Versatile Rich topical cream) 1 applic topical 2XW cream 09/04/22 glycerin (bulk) 100 % liquid See Rx Instructions miscellaneous 2XW 09/04/22 zinc gluconate 50 mg tablet 50 mg PO DAILY supplement 09/04/22 elderberry fruit 350 mg capsule 350 mg PO DAILY supplement 09/20/22 hydrochlorothiazide 25 mg tablet 25 mg PO DAILY #90 tabs 09/20/22 losartan 100 mg tablet 100 mg PO DAILY #90 tabs 09/20/22 [id number] 120 mcg-lutein 150 mcg-herb 37.5 mg chewable tablet (Alive Women's 50 Plus Gummy) 1 tab PO DAILY supplement 09/20/22 pantoprazole 40 mg tablet,delayed release 40 mg PO DAILY acid reflux 09/20/22 ketorolac 10 mg tablet 10 mg PO Q8H PRN pain 5 days #15 tabs 09/23/22 oxycodone 10 mg tablet 10 mg PO Q6H PRN pain 5 days #20 tabs 09/23/22 promethazine 25 mg tablet 25 mg PO Q6H PRN PRN Nausea #10 TABLETS 09/23/22 calcium carbonate 500 mg-vitamin D3 3.125 mcg (125 unit) tablet 1 tab PO DAILY supplement 09/25/22 cephalexin 500 mg capsule 500 mg PO Q6 #40 caps 09/29/22 valacyclovir 500 mg tablet (Valtrex) 1,000 mg PO DAILY 7 days #14 tabs 09/29/22 Hospital Course Operations None Procedures - (Cystoscopy with stent placement) Summary of Care Provided Minutes Spent on Discharge: 50 Hospital Course: Per HPI: The patient is a 67 y/o F w/ PMHx: HTN, Anxiety, Rosacea, GERD, Obesity, Chronic Thrombocytopenia who presents to the [facility] ED on 09/24/22 with history of onset over the last 48-72 hours onset of R sided lower suprapubic discomfort worse with urination with decreased UOP prompting initial ED evaluation on 09/23/22 with diagnosis distal right ureteral stone with discharge to home with pain regimen and antiemetic regimen; however, overnight patient despite resolution of pain had onset of malaise, fatigue, loose stools, nausea in addition to onset chills prompting repeat ED evaluation. Work-up in the ED Work-up in the ED included T103.3, heart rate initially 108 with most recent repeat 84, BP initially 90-57 decreasing to a low of 83/57 with most recent repeat 90/70, respiratory rate 24, 94% on room air, CBC with WC 5.6, hemoglobin 13, platelet 68 with lymphopenia and increased neutrophil percent, coags with PT 16, NR 1.3, PTT 36.9, CMP with CO2 19, BUN/creatinine 44/2.96, lactic acid 4.5, T bili 1.30, AST/ALT 238/39, alk phos 128, troponin 54, urinalysis with evidence of significant dehydration and concern for urinary tract infection although urine squamous epithelial cells 10-25 thus not the best sample, urine culture pending per ED, RSV antigen negative, SARS COVID and influenza antigens negative, chest x-ray with no acute cardiopulmonary findings, CT abdomen and pelvis with a subtle right hydroureteronephrosis secondary to a stable 3.5 mm calculus within the ureterovesicular junction, colonic diverticulosis associated with mild stranding adjacent to the distal descending colon possibly reactive however cannot exclude focal diverticulitis, fatty infiltration of the liver associate with hepatomegaly.? In the ED patient ministered Tylenol 1000 mg p.o. x1, Rocephin as well as 30 cc/kg IV fluid bolus per sepsis protocol. Discussed case with Dr. Santa following patient evaluation and she notes intention to come and evaluation and transition patient to the OR for stent placement. Relayed plan of intervention to ED staff. Hospital Course: 1. Sepsis secondary to complicated UTI and bacteremia with pansensitive E. coli status post cystoscopy with stent placement for nephrolithiasis/RAYMUNDO/acute on chronic thrombocytopenia?67-year-old female presented to the hospital with nephrolithiasis on the right side, she was found to be septic and had the stone removed and a stent placed. Given her significant hypertension and her RAYMUNDO she was started on fluid resuscitation. She was placed on initial broad-spectrum antibiotics, and both urine culture and blood culture came back positive with a pansensitive E. coli. She was transitioned to p.o. Keflex which will be dosed at 500 mg p.o.every 6 and will complete another 10 days on discharge. Of note she did become significantly volume overloaded and was about 10 L positive which led to anasarca and shortness of breath. She has been aggressively diuresed and on day of discharge she is down to being about 5 L positive. This did correlate to a weight gain of about 22 pounds as well. She is feeling much better today and was able to ambulate without any oxygen. I discussed with her the possibility for discharge today and she expressed understanding of the risks and benefits of going home and would like to go home today. Of note her platelet count did recover a little bit on the day of discharge and is now at 52,000. I do recommend she follow-up with her PCP in 3 to 5 days for outpatient follow-up with a CBC and a BMP as well as following up with urology within the next 2 weeks. 2. Herpes simplex? Due to the stress of her hospitalization and ICU stay she did develop perioral lesions which did become a severe cold sore which she does have a history of. She will be discharged on 7 days of Valtrex and was started on acyclovir here in the hospital. 3. Hypertension, GERD are all chronic medical conditions which complicate her care. Her home medications were continued where appropriate Weight / BMI Weight Weight: 163 lb 9.328 oz Body Mass Index (BMI) 30.4 ABG / Lab / Microbiology Data Result Diagrams: 09/29/22 05:55 09/29/22 05:55 Laboratory: Laboratory Results - last 24 hr 09/28/22 04:21: Diff Path Review Reviewed 09/29/22 05:55: Sodium 137, Potassium 3.6, Chloride 103, Carbon Dioxide 29.0, Anion Gap 5, BUN 18, Creatinine 0.63, Estim Creat Clear Calc 39.21, Est GFR (MDRD) Af Amer 121, Est GFR (MDRD) Non-Af 100, BUN/Creatinine Ratio 28.6 H, Glucose 83, Calcium 8.1 L 09/29/22 05:55: WBC 13.4 H, RBC 3.56 L, Hgb 11.1 L, Hct 32.9 L, MCV 92.4, MCH 31.2, MCHC 33.7, RDW Std Deviation 47.2 H, RDW Coeff of Andressa 13.8, Plt Count 52 L, MPV 12.5 H, Immature Gran % (Auto) 2.800 H, Neut % (Auto) 72.3 H, Lymph % (Auto) 13.4 L, [place] % (Auto) 10.1 H, Eos % (Auto) 1.0, Baso % (Auto) 0.4, Absolute Neuts (auto) 9.7 H, Absolute Lymphs (auto) 1.80, Nucleated RBC % 0, Reactive Lymphocytes RARE, Platelet Estimate MOD DEC Microbiology: Microbiology 09/24/22 16:05 Urine, Midstream Urine Culture - Final Escherichia coli 09/24/22 12:17 Urine, Clean Catch Urine Culture - Final Escherichia coli 09/24/22 11:35 Interface Orders Rapid RSV (DFA) - Final 09/24/22 11:35 Nasal Secretion SARS-CoV-2 & FLU Antigen (Rapid) - Final D/C Instructions Discharge Diet: Low fat / Low cholesterol Call your doctor if you observe: Fever of 101 or Higher, Shortness of breath, Dizziness, Fainting spells, Swelling in the ankles, Chest pain and Increased palpitations (irregular heartbeat) Meaningful Use Info Meaningful Use Diagnoses (Choose all that apply): None applicable Discharge Plan Admission Admit Date/Time: 09/24/22 14:30 Attending Provider: Gee Garcia Primary Care Provider: Meng Haas Consulting Providers: Jose Soliman ; Sandra Santa Discharge Orders/Prescriptions Prescriptions: New cephalexin 500 mg Capsule 500 mg PO Q6 Qty: 40 0RF valacyclovir [Valtrex] 500 mg tablet 1,000 mg PO DAILY 7 Days Qty: 14 0RF Continued pantoprazole 40 mg tablet,delayed release (DR/EC) 40 mg PO DAILY Label Comments: take 1 tablet by mouth once daily Alive Women's 50 Plus Gummy 120 mcg-150 mcg -37.5 mg tablet,chewable 1 tab PO DAILY elderberry fruit 350 mg capsule 350 mg PO DAILY losartan 100 mg tablet 100 mg PO DAILY Qty: 90 3RF hydrochlorothiazide 25 mg tablet 25 mg PO DAILY Qty: 90 3RF zinc gluconate 50 mg tablet 50 mg PO DAILY ascorbic acid (vitamin C) 1,000 mg capsule 2 g PO DAILY cholecalciferol (vitamin D3) 125 mcg (5,000 unit) capsule 250 mcg PO DAILY acetaminophen [Arthritis Pain Relief (acetam)] 650 mg tablet extended release 650 mg PO Q12H glycerin (bulk) 100 % liquid See Rx Instructions miscellaneous 2XW Label Comments: APPLY 1 GRAM (4 CLICKS)rINTRAVAGINALLY TWICE PERsWEEK Rx Instructions: 1 gram intravaginally as directed twice a week; Versatile Rich Cream 1 applic topical 2XW Label Comments: APPLY 1 GRAM (4 CLICKS)rINTRAVAGINALLY TWICE PERsWEEK metoprolol succinate 50 mg tablet extended release 24 hr 50 mg PO DAILY Label Comments: take 1 tablet by mouth every evening oxycodone 10 mg tablet 10 mg PO Q6H PRN (Reason: pain) 5 Days Qty: 20 0RF ketorolac 10 mg tablet 10 mg PO Q8H PRN (Reason: pain) 5 Days Qty: 15 0RF promethazine 25 mg tablet 25 mg PO Q6H PRN PRN (Reason: Nausea) Qty: 10 0RF calcium carbonate-vitamin D3 500 mg-3.125 mcg (125 unit) Tablet 1 tab PO DAILY Referrals / Follow Up: Sandra Santa MD [Med Staff - Active Staff] - Within 2 Weeks Meng Haas DO [Primary Care Provider] - Within 1 Week Disposition Disposition (needs filled in before D/C Order can be placed): Home, Self Care Charges/Coding Visit Charges Inpatient E&M: 75186 Disch Hosp
--- NOTE | 2022-10-17 15:50 | CASEMGMT ---
ANYI received call from Dara at [facility]. SHe was inquiring on the status of patient and if she was discharged and where. ANYI reviewed chart. Patient was discharged on 09/29 home per chart review. No other needs or issues voiced. Tomeka GREENFIELD
== END 2022-09-29 17:14 | disposition home or self-care (01) | DRG 854 ==
LOC: ED 15:16 → ICU 15:18 → PCU 09-26 17:00
PROVIDERS: Urology; Admitting Provider Family Medicine; Emergency Provider Emergency Medicine; PCP Student in an Organized Health Care Education/Training Program; Referring Provider Family Medicine; Visit Provider Family Medicine
PROC: 0T768DZ Dilation of Right Ureter with Intraluminal Device, Via Natural or Artificial Opening Endoscopic (ICD-10-PCS; principal; 2022-09-24 15:45)
DX: A41.51 Sepsis due to Escherichia coli [E. coli] (principal); N17.9 Acute kidney failure, unspecified; K57.32 Diverticulitis of large intestine without perforation or abscess without bleeding; N13.6 Pyonephrosis; D69.6 Thrombocytopenia, unspecified; R65.20 Severe sepsis without septic shock; I10 Essential (primary) hypertension; K21.9 Gastro-esophageal reflux disease without esophagitis; E87.70 Fluid overload, unspecified; E86.0 Dehydration; R74.02 Elevation of levels of lactic acid dehydrogenase [LDH]; R31.9 Hematuria, unspecified; R04.0 Epistaxis; B00.9 Herpesviral infection, unspecified; E66.9 Obesity, unspecified; Z68.30 Body mass index [BMI] 30.0-30.9, adult; Z20.822 Contact with and (suspected) exposure to COVID-19; Z79.899 Other long term (current) drug therapy
CPT/HCPCS: 36415; 71045; 74176; 76000; 80048; 80053; 80076; 81001; 83605; 83690; 83735; 84100; 84145; 84484; 85025; 85610; 85730; 87040; 87077; 87086; 87088; 87186; 87428; 87807; 93005; 94640; 96361; 96374; 96375; 96376; 99251; 99282; 99285; J7030; J7050; J7120; A4216; C2625; G0463; J1940; J2405

== ENCOUNTER → 2022-10-11 | Outpatient (CLI) | payer MEDICARE, SELFPAY ==
--- NOTE | 2022-10-11 13:47 | ECHOD_ITS ---
Reason For Study: HTN Procedure This was a 2D Doppler, Color Flow transthoracic echocardiogram. Exam performed in department. Left Ventricle Normal LV size. Left ventricular systolic function is normal. The estimated ejection fraction is 65 %. No regional wall motion abnormalities noted. Right Ventricle Normal RV size. Normal systolic function. Atria Normal left atrium. Normal right atrium. Mitral Valve Normal mitral valve. Mild (1+) eccentric mitral valve insufficiency. Tricuspid Valve Normal tricuspid valve. Mild tricuspid valve insufficiency. Pulmonary artery systolic pressure is 24 mmHg. Aortic Valve Trisinus/trileaflet aortic valve. Pulmonic Valve Normal pulmonic valve. Trivial pulmonic valve insufficiency identified. Great Vessels Normal aortic root. The pulmonary artery is normal size. Normal inferior vena cava. Pericardium/Pleural No pericardial effusion. MMode/2D Measurements & Calculations LVIDd: 3.6 cm IVSd: 1.1 cm Ao root diam: 2.8 cm LVIDs: 2.2 cm LVPWd: 1.0 cm RVDd: 3.2 cm FS: 37.8 % LAV(MOD-bp): 28.2 ml LVAd ap4: 20.6 cm2 SV(MOD-sp4): 33.6 ml LAV(MOD-bp) Indexed: 17.4 ml/m2 LVLd ap4: 7.0 cm LAV(MOD-sp2): 24.4 ml EDV(MOD-sp4): 50.6 ml LAV(MOD-sp4): 29.9 ml EDV(sp4-el): 51.4 ml LVAs ap4: 10.8 cm2 LVLs ap4: 5.8 cm ESV(MOD-sp4): 17.0 ml ESV(sp4-el): 17.0 ml EF(MOD-sp4): 66.4 % EF(sp4-el): 67.0 % SV(sp4-el): 34.4 ml LA A4 area: 13.0 cm2 LA dimension(2D): 2.6 cm RA A4 area: 9.4 cm2 Time Measurements MV dec time: 0.29 sec Doppler Measurements & Calculations MV E max chris: 63.4 cm/sec Lat Peak E' Chris: 9.5 cm/sec Med Peak E' Chris: 5.9 cm/sec MV A max chris: 75.0 cm/sec E/E' lat: 6.6 E/E' med: 10.8 MV E/A: 0.85 Ao V2 max: 159.4 cm/sec LV V1 max: 140.0 cm/sec PA V2 max: 164.3 cm/sec Ao max P.2 mmHg LV V1 max P.8 mmHg PA V2 mean: 109.8 cm/sec Ao V2 mean: 102.9 cm/sec PA V2 VTI: 28.4 cm Ao mean P.7 mmHg Ao V2 VTI: 26.7 cm TR max chris: 234.2 cm/sec TR max P.9 mmHg ECHO/Echo Complete Interpretation Summary Normal LV size. Left ventricular systolic function is normal. The estimated ejection fraction is 65 %. Pulmonary artery systolic pressure is 24 mmHg. Ordering Physician: Pablito Peng Referring Physician: Meng Haas Performed By: Noreen Mora, JOSE LUIS, RVT
== END | disposition home or self-care (01) ==
LOC: CVS 13:46
PROVIDERS: PCP Student in an Organized Health Care Education/Training Program; Referring Provider Internal Medicine Cardiovascular Disease; Visit Provider Internal Medicine Cardiovascular Disease
DX: R06.83 Snoring (principal); I10 Essential (primary) hypertension
CPT/HCPCS: 93306

== ENCOUNTER 2022-11-16 08:23 | Day surgery (SDC) | payer MEDICARE, SELFPAY ==
[2022-11-16 08:57] VITALS: BP 131/61; PULSE 62; RESP 18; TEMP 37.4; O2SAT 99; BMI 23.4
[2022-11-16] MEDS: Lactated Ringers 1,000 ML 15 ML IV (09:04)
[2022-11-16 09:20] LABS: Hematocrit 36.4 % (37-47); Mean Corpuscular Volume 94.1 fL (81-99); Mean Platelet Vol. 9.5 fl (6.2-12.0); Platelet Count 157 K/mm3 (150-450); RBC Distribution Width CV 13.9 % (11.6-14.6); RBC Distribution Width SD 47.3 fl (35.1-43.9); Red Blood Count 3.87 M/mm3 (4.2-5.4); White Blood Count 4.8 K/mm3 (4.4-11.0)
[2022-11-16] MEDS: Cefazolin 2 GM in 0.9% Normal Saline 100 ML IV (10:28)
[2022-11-16 11:03] VITALS: BP 103/59; BP 131/61; PULSE 67; RESP 16; TEMP 36.1; O2SAT 95
[2022-11-16 11:15] VITALS: BP 116/60; BP 131/61; PULSE 73; RESP 16; O2SAT 98
[2022-11-16 11:30] VITALS: BP 118/62; BP 131/61; PULSE 64; RESP 16; O2SAT 98
--- NOTE | 2022-11-16 11:31 | DCINST_ITS ---
Discharge Instructions Diet Discharge Diet: No restrictions Activity Discharge Activity: Return to Normal Activity Dressing / Incision Call your doctor if you observe: Fever of 101 or Higher, Inability to urinate and Inability to have a bowel movement Follow Up Care Please Follow Up With: Sandra Santa MD When: 1 week in the office Test Results: Test results from this visit will be discussed in further detail at your follow- up appointment, if applicable. Discharge Plan Admission Attending Provider: Sandra Santa Primary Care Provider: Meng Haas Discharge Orders/Prescriptions Prescriptions: New oxycodone-acetaminophen [Percocet] 5-325 mg tablet 1 tab PO Q8H PRN (Reason: pain) 3 Days Qty: 6 0RF No Action pantoprazole 40 mg tablet,delayed release (DR/EC) 40 mg PO DAILY Label Comments: take 1 tablet by mouth once daily Alive Women's 50 Plus Gummy 120 mcg-150 mcg -37.5 mg tablet,chewable 1 tab PO DAILY elderberry fruit 350 mg capsule 350 mg PO DAILY losartan 100 mg tablet 100 mg PO DAILY Qty: 90 3RF hydrochlorothiazide 25 mg tablet 25 mg PO DAILY Qty: 90 3RF zinc gluconate 50 mg tablet 50 mg PO DAILY ascorbic acid (vitamin C) 1,000 mg capsule 2 g PO DAILY cholecalciferol (vitamin D3) 125 mcg (5,000 unit) capsule 250 mcg PO DAILY acetaminophen [Arthritis Pain Relief (acetam)] 650 mg tablet extended release 650 mg PO Q12H glycerin (bulk) 100 % liquid See Rx Instructions miscellaneous 2XW Label Comments: APPLY 1 GRAM (4 CLICKS)rINTRAVAGINALLY TWICE PERsWEEK Rx Instructions: 1 gram intravaginally as directed twice a week; metoprolol succinate 50 mg tablet extended release 24 hr 50 mg PO DAILY Label Comments: take 1 tablet by mouth every evening calcium carbonate-vitamin D3 500 mg-3.125 mcg (125 unit) Tablet 1 tab PO DAILY cephalexin 500 mg capsule 500 mg PO TID Referrals / Follow Up: Meng Haas DO [Primary Care Provider] - Disposition Disposition (needs filled in before D/C Order can be placed): Home, Self Care
[2022-11-16 11:45] VITALS: BP 114/62; BP 131/61; PULSE 63; RESP 16; TEMP 36.3; O2SAT 97
--- NOTE | 2022-11-16 12:20 | PCM.OPRPT ---
Report of Operation Date of Procedure: 11/16/22 Pre-Operative Diagnosis: right ureteral stone Post-Operative Diagnosis: same, passed Surgery/Procedure Performed:: cystoscopy, right ureteroscopy and right ureteral stent removal Surgeon: Sandra Santa Type of Anesthesia: General Specimen's removed: none Description of Procedure: The patient is a 67-year-old female who underwent a right ureteral stent insertion for an obstructing stone with sepsis. She now presents for definitive stone intervention for the stone. Informed consent was obtained. She was taken the operating room and placed on the operating room table. Anesthesia monitored the head, neck, airway, IV access and vital signs throughout the case. Once anesthesia was appropriately administered, the patient was placed into dorsal lithotomy position and was prepped and draped in usual sterile fashion. The cystoscope was inserted through the urethra under direct visualization into the urinary bladder. The indwelling ureteral stent was observed and grasped and pulled to to the outside of the urethra where it was intubated with a 0.035 Glidewire. The Glidewire was advanced into the renal pelvis. A second 0.035 Glidewire was then placed alongside the first 1 and a flexible ureteroscope was passed over the wire into the ureter and advanced without difficulty into the renal pelvis. The renal pelvis was directly visualized as were the calyces, no stone was identified. The entire length of the ureter was directly visualized finding no evidence of stone, edema, erythema. At this time the patient's bladder was emptied and the case was terminated. The patient was awakened and taken to the recovery room in good condition. There were no complications during this procedure. Grafts/Implants Used: none Complications none Admit VTE Documentation VTE Present on Admission: Yes VTE Mechan Device Prophylaxis: SCD's VTE Pharm Prophylaxis ordered?: No Reason prophylaxis not ordered:: Treatment Not Indicated
[2022-11-16 12:24] VITALS: BP 131/61
== END 2022-11-16 12:35 | disposition home or self-care (01) ==
LOC: SDC 08:23 → AC 08:30
PROVIDERS: PCP Student in an Organized Health Care Education/Training Program; Referring Provider Urology; Visit Provider Urology
PROC: 0TJ98ZZ Inspection of Ureter, Via Natural or Artificial Opening Endoscopic (ICD-10-PCS; CPT 52352; principal; 2022-11-16 09:55)
DX: N20.1 Calculus of ureter (principal); R39.15 Urgency of urination; N12 Tubulo-interstitial nephritis, not specified as acute or chronic; I10 Essential (primary) hypertension; Z79.899 Other long term (current) drug therapy
CPT/HCPCS: 52310; 00910; 76000; 85027; J7120; J2405

== ENCOUNTER → 2022-12-14 | Outpatient (CLI) | payer MEDICARE, SELFPAY ==
--- NOTE | 2022-12-14 16:57 | US_ITS ---
INDICATION: RT STONE EXAMINATION: Ultrasound US Kidney(s) complete (eg, kidneys and bladder) TECHNIQUE: Soriano scale and color doppler images were obtained of the kidneys. COMPARISON: None. FINDINGS: RIGHT KIDNEY: The right kidney measures 9.5 cm in length. There is no hydronephrosis. No shadowing calculus or perinephric collection is demonstrated. There is a 1.2 x 1.0 cm right renal cyst. LEFT KIDNEY: The left kidney measures 10.1 cm in length. There is no hydronephrosis. No shadowing calculus, focal lesion or perinephric collection is demonstrated. URINARY BLADDER: No acute abnormality. The visualized right kidney is diffusely echogenic consistent with fatty infiltration. US/Kidney and Bladder IMPRESSION: Within normal limits renal ultrasound. Fatty infiltration of the liver. Electronically Signed: Cierra Levi MD at 8:22 EST ,
== END | disposition home or self-care (01) ==
PROVIDERS: PCP Student in an Organized Health Care Education/Training Program; Referring Provider Urology; Visit Provider Urology
DX: N20.0 Calculus of kidney (principal)
CPT/HCPCS: 76770

== ENCOUNTER → 2024-01-08 | Outpatient (CLI) | payer MEDICARE, SELFPAY | END | disposition home or self-care (01) | LOC: SL 20:25 | PROVIDERS: PCP Student in an Organized Health Care Education/Training Program; Referring Provider Nurse Practitioner Family; Visit Provider Nurse Practitioner Family | DX: G47.10 Hypersomnia, unspecified (principal); R06.02 Shortness of breath; I10 Essential (primary) hypertension | CPT/HCPCS: 95810 ==

== ENCOUNTER → 2024-05-05 | Outpatient (CLI) | payer MEDICARE, SELFPAY ==
--- NOTE | 2024-05-05 08:30 | RAD_ITS ---
STUDY: X-RAY - ESOPHAGUS (BARIUM SWALLOW) WITH FLUOROSCOPY REASON FOR EXAM: Female, 69 years old. DYSPHAGIA TECHNIQUE: 45 view(s) of the esophagus were obtained following swallowing of barium. FLUOROSCOPY TIME (if supplied): (32 seconds) minutes/seconds. 6.9 mGy. COMPARISON: None. FINDINGS: There is no demonstrated esophageal foreign body. There is no demonstrated stricture or mucosal abnormality. Small hiatal hernia. There is evidence of gastroesophageal reflux. The patient ingested a 12 mm tablet and barium without any difficulty. Normal visualized aortic arch and descending thoracic aorta. Normal visualized pulmonary parenchyma. Normal visualized osseous structures of the thorax. RAD/Esophagus Dual Contrast IMPRESSION: Gastroesophageal reflux. Small hiatal hernia. Electronically Signed: Brent Davis MD at 14:11 EDT ,
== END | disposition home or self-care (01) ==
LOC: RAD 08:19
PROVIDERS: PCP Student in an Organized Health Care Education/Training Program; Referring Provider Otolaryngology; Visit Provider Otolaryngology
DX: R13.10 Dysphagia, unspecified (principal); K21.9 Gastro-esophageal reflux disease without esophagitis
CPT/HCPCS: 74221

== ENCOUNTER → 2024-11-17 | Outpatient (CLI) | payer MEDICARE, SELFPAY ==
--- NOTE | 2024-11-17 12:52 | RAD_ITS ---
STUDY: X-RAY - ABDOMEN/PELVIS REASON FOR EXAM: Female, 69 years old. KUB- KIDNEY STONE TECHNIQUE: Frontal views COMPARISON: None. FINDINGS: Normal visualized lung bases. There is an unremarkable bowel gas pattern. Mild colonic fecal retention. There is no demonstrated free abdominal air. The visualized liver, spleen and kidneys are grossly normal in size and morphology. Normal soft tissue structures. Degenerative vertebral changes. RAD/Abdomen Single View IMPRESSION: Mild colonic fecal retention which can limit the evaluation for renal calculi. Electronically Signed: Daniel Whitney DO at 17:06 EST Reading Location ID and State: [facility] / [place] Tel [phone], Service support ,
== END | disposition home or self-care (01) ==
LOC: MTRAD 12:51
PROVIDERS: PCP Student in an Organized Health Care Education/Training Program; Referring Provider Urology; Visit Provider Urology
DX: N20.0 Calculus of kidney (principal)
CPT/HCPCS: 74018

== ENCOUNTER → 2025-06-18 | Outpatient (CLI) | payer MEDICARE, SELFPAY ==
[2025-06-18 15:07] LABS: Hematocrit 38.4 % (37-47); Hemoglobin 13.5 g/dL (12.0-15.0); Mean Corp Hgb Conc 35.2 g/dL (32-36); Mean Corpuscular Volume 92.3 fL (81-99); Mean Platelet Vol. 9.9 fl (6.2-12.0); Platelet Count 144 K/mm3 (150-450); RBC Distribution Width CV 12.9 % (11.6-14.6); RBC Distribution Width SD 43.5 fl (35.1-43.9); Red Blood Count 4.16 M/mm3 (4.2-5.4); White Blood Count 5.6 K/mm3 (4.4-11.0)
[2025-06-18 16:16] LABS: Anion Gap 12 (5-15); BUN 21 mg/dL (4-19); BUN/Creat Ratio 31.9 RATIO (10-20); Calcium,Total 9.6 mg/dL (7.6-11.0); Carbon Dioxide 24.8 mmol/L (21.0-32.0); Chloride 101 mmol/L (98-108); Glucose 84 mg/dL (70-99); Potassium 4.1 mmol/L (3.3-5.1); Vitamin D,25 Hydroxy 61.0 ng/mL (30-100)
== END | disposition home or self-care (01) ==
LOC: LAB 14:22
PROVIDERS: PCP Student in an Organized Health Care Education/Training Program; Referring Provider Nurse Practitioner Gerontology; Visit Provider Nurse Practitioner Gerontology
DX: E55.9 Vitamin D deficiency, unspecified (principal); R53.83 Other fatigue
CPT/HCPCS: 36415; 80048; 82306; 84443; 85027